=== PATIENT | female | born 1955 | race Caucasian/White ===

== ENCOUNTER 2024-10-04 23:32 | Inpatient (IN) | payer MEDICAID, SELFPAY ==
--- OUTSIDE RECORDS SUMMARY | 2024-08-23 04:40 | XMS_ITS ---
Author Organization [facility] Address [address] [place] [address] Care Team Providers Care Group Teacher Name Role Phone Verónica Crews Primary Care Provider [phone] REASON FOR VISIT 3 month F/U Social History Sex Assigned At : Social History Observation Description Sex Assigned At Female Encounters Encounter Location Date Provider Diagnosis [facility] [address] [place] [address] 08/23/2024 Verónica Crews Plan Of Treatment Next Appt Details Provider Name:Verónica Crews, 12/09/2024 08:20:00 AM, [address] [place], [address], Progress Notes * Americo EVANSaDOB: (69 yo F)Acc No.[id number]:08/23/2024 Progress Notes Patient: Etelvina Sahu Appointment Provider: MANUEL Shaikh :1955 A ge:68 Y S ex:Female Date:08/23/2024 Address:[address] [id number] Subjective: * Chief Complaints: * 3 month F/U Care Plan Details* * Electronic signature of MANUEL Bustos i on 10/04/2024 at 11:50 PM CDT Sign off status: Pending * Appointment Provider: MANUEL Shaikh Date: 0 08/23/2024 Generated for Elin villa/Sarah/Licoitting on: 0 10/04/2024 11:50 PM CDT
--- OUTSIDE RECORDS SUMMARY | 2024-09-05 03:40 | XMS_ITS ---
Author Organization [facility] Address [address] [facility] [id number] Care Team Providers Care Field Advisor Name Role Phone Verónica Crews Primary Care Provider [phone] Allergies Allergen (clinical drug ingredient) Drug/Non Drug Allergy documented on EMR Reaction Allergy Type Onset Date Status codeine Codeine Unknown Drug Allergy Active morphine Morphine Unknown Drug Allergy Active Substance with sulfonamide structure and antibacterial mechanism of action (substance) Sulfa Antibiotics Unknown Drug Allergy Active Results Component Value Reference Range Notes Hemoglobin A1C Reviewed date:09/05/2024 09:00:25 AM Interpretation:5.5 Performing Lab: Notes/Report: 5.5 A1c (Hemoglobin) 5.5 Drug Screen, 13 Panel Reviewed date:09/05/2024 12:49:12 PM Interpretation: Performing Lab: Notes/Report: THC pos TITI neg MOP neg AMP neg MET neg BAR neg BZO pos MDMA neg MTD neg OXY neg PCP neg BUP neg Fen neg REASON FOR VISIT 3 month F/U Medications Medication SIG (Take, Route, Frequency, Duration) Notes Start Date End Date Status ALPRAZolam 1 MG Tablet TAKE 1 TABLET BY MOUTH TWICE A DAY 30 DAYS; Duration: 30 days PDMP reviewed, ok to fill 09/15/2024 09/05/2024 Active Eliquis 5 MG Tablet 1 tablet Orally twice a day Active Furosemide 40 MG Tablet 1 tablet Orally Once a day Active Aspirin 81 MG Tablet Delayed Release 1 tablet Orally Once a day Not-Taking/ PRN Amiodarone HCl 200 MG Tablet 1 tablet Orally twice daily Not-Taking/ PRN Zinc Acetate 25 MG Capsule 1 capsule Orally once daily Not-Taking/ PRN Vitamin D3 125 MCG (5000 UT) Tablet TAKE 1 CAPSULE (5,000 UNITS TOTAL) BY MOUTH 1 (ONE) TIME EACH DAY.; Duration: 30 Not-Taking/ PRN Vitamin C 500 MG Tablet TAKE 1 TABLET (500 MG TOTAL) BY MOUTH 1 (ONE) TIME EACH DAY.; Duration: 30 Not-Taking/ PRN Trelegy Ellipta 100-62.5-25 MCG/ACT Aerosol Powder Breath Activated 1 puff Inhalation Once a day; Duration: 30 days rinse mouth out well after each use 05/12/2022 Not-Taking/ PRN Atorvastatin Calcium 40 MG Tablet 1 tablet Orally Once a day; Duration: 90 days Active ProAir HFA 108 (90 Base) MCG/ACT Aerosol Solution 1-2 puffs Inhalation every 4-6 hrs as needed; Duration: 90 days Not-Taking/ PRN predniSONE 20 MG Tablet 1 tablet Orally twice daily Not-Taking/ PRN methylPREDNISolone 4 MG Tablet Therapy Pack as directed Orally Not-Taking/ PRN Lisinopril 20 MG Tablet 1 tablet Orally Once a day; Duration: 90 days Not-Taking/ PRN traMADol HCl 50 MG Tablet 1 tablet as needed Orally every 6 hours Not-Taking/ PRN HYDROcodone-Acetaminophe n 5-325 MG Tablet 1 tablet as needed Orally every 8 hrs as needed for pain; Duration: 2 days PDMP reviewed, ok to fill 12/12/22 12/12/2022 Not-Taking/ PRN Famotidine 20 MG Tablet 1 tab Orally twice a day as needed; Duration: 30 days Not-Taking/ PRN Diflucan 150 MG Tablet 1 tablet Orally; Duration: 1 days 03/29/2024 Not-Taking/ PRN busPIRone HCl 15 MG Tablet 1 tablet Orally every 8 hours as needed for anxiety; Duration: 90 days Not-Taking/ PRN Breztri Aerosphere 160-9-4.8 MCG/ACT Aerosol 2 puffs Inhalation Twice a day; Duration: 30 days DC Symbicort 05/11/2022 Not-Taking/ PRN Ascorbic Acid 500 MG Tablet 1 tablet Orally Once a day Not-Taking/ PRN Amoxicillin-Pot Clavulanate 875-125 MG Tablet 1 tablet Orally every 12 hrs Not-Taking/ PRN Ventolin HFA 108 (90 Base) MCG/ACT Aerosol Solution TAKE 2 PUFFS INHALATION EVERY 4-6 HRS NEEDED; Duration: 30 Active Azithromycin 250 MG Tablet 2 tablets on the first day, then 1 tablet Orally once daily for 4 more days. Not-Taking/ PRN Bisacodyl 5 MG Tablet Delayed Release 1 tablet as needed Orally Once a day Not-Taking/ PRN Symbicort 160-4.5 MCG/ACT Aerosol USE 2 PUFFS INHALATION TWICE A DAY (FOR COPD); Duration: 90 Active Pantoprazole Sodium 40 MG Tablet Delayed Release TAKE 1 TABLET BY MOUTH DAILY (HEARTBURN); Duration: 90 Active Oxygen 2 Liter 2 Liter Nasal Constant 06/12/2023 Active Ondansetron [address] 1 TABLET ON THE TONGUE AND ALLOW TO DISSOLVE ORALLY EVERY 8 HOURS NEEDED; Duration: 5 Not-Taking/ PRN tiZANidine HCl 4 MG Tablet TAKE 1 TABLET(S) BY MOUTH EVERY 8 HOURS NEEDED FOR MUSCLE RELAXER; Duration: 30 days Active Isosorbide Mononitrate ER 30 MG Tablet Extended Release 24 Hour 1 tablet in the morning Orally Once a day Not-Taking/ PRN Ipratropium-Albuterol 0.5-2.5 (3) MG/3ML Solution USE 1 VIAL VIA NEBULIZER FOUR TIMES DAILY TAKE FOR WHEEZING 30; Duration: 30 Active Mupirocin Calcium 2 % Cream APPLY TO AFFECTED AREA(S) THREE TIMES DAILY; Duration: 10 Active Metoprolol Succinate ER 25 MG Tablet Extended Release 24 Hour 1/2 tablet Orally Once a day Not-Taking/ PRN Nitroglycerin 0.4 MG Tablet Sublingual DISSOLVE 1 TABLET UNDER THE TONGUE EVERY 5 MINUTES UP TO 3 TIMES NEEDED FOR CHEST PAIN- IF NO RELIEF GO TO ER SUBLINGUAL DIRECTED Sublingual as needed; Duration: 30 days Active Clopidogrel Bisulfate 75 MG Tablet TAKE 1 TABLET BY MOUTH DAILY (BLOOD THINNER); Duration: 90 Active Celecoxib 200 MG Capsule TAKE ONE CAPSUL E BY MOUTH DAILY WITH FOOD (PAIN & INFLAMMATION); Duration: 90 Active Carvedilol 3.125 MG Tablet 1 tablet with food Orally Twice a day Active Fluticasone Propionate 50 MCG/ACT Suspension INSTILL 1 SPRAY IN EACH NOSTRIL NASALLY TWICE A DAY 90 DAYS; Duration: 90 Active DULoxetine HCl 60 MG Capsule Delayed Release Particles TAKE ONE CAPSULE BY MOUTH TWICE DAILY (MOOD/ANXIETY); Duration: 90 Active Social History Tobacco Use: Social History Observation Description Date Details (start date - stop date) Current Smoker NA - NA Sex Assigned At : Social History Observation Description Sex Assigned At Female Social History Social Determinants Social Info Question Answer Notes PRAPARE Date Completed/Updated: 02/07/2024 What is your current housing situation? I have h ousing Are you worried about losing your housing? No What is the highest level of school that you have finished? Less than a high school degree What is your current work situation? Oth erwise unemployed but not seeking work (ex. 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 Check all that apply I choose not to answer this question Has lack of transportation k ept you from medical appointments, meetings, work or from getting things needed for daily living? No How often do you see or talk to people that you care about and feel close to? (For example: talking to friends on the phone, visiting friends or family, going to orthodox or club meetings) More than 5 times a week How stressed are you? Stress is when someone feels tense, nervous, anxious, or cant sleep at night because their mind is troubled Very much In the past year have you sp ent more than 2 nights in a row in a fdc, nursing home, mcfp center, or juvenile correctional facility? No Are you a refugee? No What country are you from? [place] Do you feel physically and e motionally safe where you currently live? Yes In the past year, have you b een afraid of your partner or ex-partner? No PRAPARE Score: 6 Drugs/Alcohol: Social Info Question Answer Notes Drugs Have you used drugs other than those for medical reasons in the past 12 months? Yes Marijuana? Yes Comprehensive Health Assessm ent Social Info Question Answer Notes Comprehensive Health Assessment Assistance with drug c ost? No Assistance with food cost? No Any communication needs? No Any High risk behaviors ? No Any Mental health issues? No Any substance abuse ? No Problems understanding meds or dx ? No Has been referred for Comp. Care Plan? No Drug/Alcohol: Social Info Question Answer Notes SBIRT (2018 Edition) Patient refused/dec lined SBIRT screening at this time? No 1. How often do you have a drink containing alcohol? Never SCORE 0 Interpretation Negative How many times in the past year have you used an illegal drug or used a prescription medication for non-medical reasons? 0 Total Count 0 Interpretation Negative Tobacco Use: Social Info Question Answer Notes Tobacco Control (Standard) Tobacco use: Current smoker How often do you smoke cigarettes? Every day How many cigarettes a day do you smoke? 5 or less How soon after you wake up do you smoke your first cigarette? After 60 minutes Are you interested in quitting? Thinking about quitting Are you an ENDS user: Are you an other tobacco user? N o Vital Signs Temperature 97.8 degrees Fahrenheit 09/06/19 25 Blood pressure systolic 138 mm Hg 09/06/19 25 Blood pressure diastolic 79 mm Hg 025 Heart Rate 71 /min 09/05/2024 Respiratory Rate 16 /min 09/05/2024 Height 61 in 09/05/2024 Weight 96.4 lbs 09/05/2024 BMI 18.21 kg/m2 09/05/2024 Oximetry 93 % 09/05/2024 Height-cm 154.94 cm 09/05/2024 Weight-kg 43.73 kg 09/05/2024 Encounters Encounter Location Date Provider Diagnosis [facility] [id number] [place] [address] 09/05/2024 Verónica Crews Nutritional counseli ng Z71.3 ; Smoking F17.200 ; Lung nodule seen on imaging study R91.1 ; Mixed hyperlipidemia E78.2 ; Prediabetes R73.09 ; Blood glucose elevated R73.9 ; Anxiety with depression F41.8 ; Screening mammogram, encounter for Z12.31 and 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 Assessments Encounter Date Diagnosis (ICD Code) Assessment Notes Treatment Notes Treatment Clinical Notes Section Notes 09/05/2024 Nutritional counseling (ICD-10 - Z71.3) Eating Healthy Foods: Care Instructions material was printed 09/05/2024 Smoking (ICD-10 - F17.200) Smoking cessation drugs: nicotine replacement products material was printed, Smoking cessation drugs: nicotine replacement products material was printed 09/05/2024 Lung nodule seen on imaging study (ICD-10 - R91.1) 09/05/2024 Mixed hyperlipidemia (ICD-10 - E78.2) 09/05/2024 Prediabetes (ICD-10 - R73.09) 09/05/2024 Blood glucose elevated (ICD-10 - R73.9) 09/05/2024 Anxiety with depression (ICD-10 - F41.8) 09/05/2024 Screening mammogram, encounter for (ICD-10 - Z12.31) 09/05/2024 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 use 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 (ICD-10 - Z79.899) 09/05/2024 Other Smoking cessation drugs: nicotine replacement products (sp) material was printed Plan Of Treatment Medication Medication Name Sig Start Date Stop Date Notes ALPRAZolam 1 MG Tablet TAKE 1 TABLET BY MOUTH TWICE A DAY 30 DAYS; Duration: 30 days 09/05/2024 PDMP reviewed, ok to fill 09/15/2024 Atorvastatin Calcium 40 MG Tablet 1 tablet Orally Once a day; Duration: 90 days Treatment Notes Assessment Notes Nutritional counseling Eating Healthy Fo ods: Care Instructions material was printed Smoking Smoking cessation dr parr: nicotine replacement products material was printed, Smoking cessation drugs: nicotine replacement products material was printed Other Smoking cessation dr parr: nicotine replacement products (sp) material was printed Pending Test Test Name Order Date MAMMOGRAM, SCREENING 09/05/[address] Low Dose without Contrast 15169 09/05/2024 Next Appt Details Provider Name:Verónica Crews, 12/09/2024 08:20:00 AM, [address] [place], [address], History and Physical Notes * HPI (History of Present Illness) Category Sub-Category Detail Notes Category Not es New/Follow-up Patient Consult 69 year old female presents to clinic for 3 month F/U. Pt. states she would like to discuss her Xanax and it is maybe causing memory loss. Pt. states she feels like her memory is getting worse and wonders if the Xanax is causing it. Pt. states her mother takes Valium, and it is not supposed to cause memory loss. Pt. states she thinks she was supposed to have more blood work done as well. Pt. 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 KEITH Cano Depression Screening PHQ-9 Little interest or pleasure in doing things: Several days Feeling down, depressed, or hopeless: Ne olivia every day Trouble falling or staying a sleep, or sleeping too much: More than half the days Feeling tired or having little energy: N early every day Poor appetite or overeating: Several day s Feeling bad about yourself o r that you are a failure, or have let yourself or your family down: Not at all Trouble concentrating on thi ngs, such as reading the newspaper or watching television: More than half the days Moving or speaking so slowly that other people could have noticed; or the opposite, being so fidgety or restless that you have been moving around a lot more than usual: Not at all Thoughts that you would be b isak off or of hurting yourself in some way: Not at all Total Score: 12 Interpretation: Moderate Depression COVID Testing/Immunization Immunization Received COVID Vac cine: No Progress Notes * Sindy AGUIRREAnaB: 7 (69 yo F)Acc No.[id number]:09/05/2024 Progress Notes Patient: Etelvina Sahu Appointment Provider: MANUEL Shaikh :1955 A ge:69 Y S ex:Female Date:09/05/2024 Address:[address] [place] [address] ELOY LYNN, [id number] 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 Subjective: * Chief Complaints: * 3 month F/U * HPI: C OVID Testing/Immunization: Immunization R eceived COVID Vaccine N o D epression Screening: PHQ-9 L ittle interest or pleasure in doing things?Several days F eeling down, depressed, or hopeless N early every day T rouble falling or staying asleep, or sleeping too much M ore than half the days F eeling tired or having little energy N early every day P oor appetite or overeating S everal days F eeling bad about yourself or that you are a failure, or have let yourself or your family down N ot at all T rouble concentrating on things, such as reading the newspaper or watching television M ore than half the days M oving or speaking so slowly that other people could have noticed; or the opposite, being so fidgety or restless that you have been moving around a lot more than usual N ot at all T houghts that you would be better off or of hurting yourself in some way N ot at all T otal Score 1 2 I nterpretation M oderate Depression N ew/Follow-up Patient Consult: 69 year old female presents to clinic for 3 month F/U. Pt. states she would like to discuss her Xanax and it is maybe causing memory loss. Pt. states she feels like her memory is getting worse and wonders if the Xanax is causing it. Pt. states her mother takes Valium, and it is not supposed to cause memory loss. Pt. states she thinks she was supposed to have more blood work done as well. Pt. 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 KEITH Cano. * ROS: G eneral/Constitutional: Denies C hills. D enies F atigue. D enies F ever. D enies H eadache. R espiratory: Denies C ough. D enies S hortness of breath. ? C ardiovascular: Denies C hest pain. D enies P alpitations. ? G astrointestinal: Denies A bdominal pain. D enies N ausea. D enies V omiting. * Medical History: Depression Anxiety PTSD (post-traumatic stress disorder) Major depressive disorder Pain in left hip CVA (cerebral vascular accident) COPD (chronic obstructive pulmonary disease) Glaucoma Fibromyalgia PVD (peripheral vascular disease) GERD (gastroesophageal reflux disease) OCD (obsessive compulsive disorder) Panic attack Medical History Verified * Surgical History: arm surgery, left gortex aorta surgery x3 head trauma stents, x3 01/2024 bowel surgery 01/2024 Surgical History verified. * Hospitalization/Major Diagno stic Procedure: surgeries COPD, [facility] 06/2023 [facility], x2 01/2024 [facility], x2 acute resp. failure, [facility] 03/2024 Hospitalization Verified. * Family History: F ather: alive. M other: alive. 1 brother(s) , 1 sister(s) - healthy. 3 daughter(s) - healthy. . F amily History Verified.. * Social History: C omprehensive Health Assessment: C omprehensive Health Assessment A ssistance with drug cost? N o A ssistance with food cost? N o A ny communication needs? N o A ny High risk behaviors ? N o A ny Mental health issues? N o A ny substance abuse ? N o P roblems understanding meds or dx ? N o H as been referred for Comp. Care Plan? N o S ocial Determinants: Silvio Li ate Completed/Updated: 04/09/2023 W hat is your current housing situation? I have housing A re you worried about losing your housing??No W hat is the highest level of school that you have finished? L ess than a high school degree W hat is your current work situation? O therwise unemployed but not seeking work (ex. 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 Check all that apply I choose not to answer this question H as lack of transportation kept you from medical appointments, meetings, work or from getting things needed for daily living? N o H ow often do you see or talk to people that you care about and feel close to? (For example: talking to friends on the phone, visiting friends or family, going to orthodox or club meetings) M ore than 5 times a week H ow stressed are you? Stress is when someone feels tense, nervous, anxious, or cant sleep at night because their mind is troubled V aleena much I n the past year have you spent more than 2 nights in a row in a fdc, nursing home, mcfp center, or juvenile correctional facility? N o A re you a refugee? N o W hat [place] are you from[place] D o you feel physically and emotionally safe where you currently live? Y es I n the past year, have you been afraid of your partner or ex-partner? N o P ART Score: 6 D rug/Alcohol: S GONZALES (2018 Edition) P atient refused/declined SBIRT screening at this time? N o 1 . How often do you have a drink containing alcohol? N ever S CORE 0 I nterpretation N egative H ow many times in the past year have you used an illegal drug or used a prescription medication for non-medical reasons? 0 T otal Count 0 I nterpretation N egative T obacco Use: A re you an ENDS user A re you an other tobacco user? N o Tobacco Control (Standard) T obacco use: C urrent smoker H ow often do you smoke cigarettes? E very day H ow many cigarettes a day do you smoke? 5 or less H ow soon after you wake up do you smoke your first cigarette? A fter 60 minutes A re you interested in quitting? T hinking about quitting D rugs/Alcohol: D rugs H ave you used drugs other than those for medical reasons in the past 12 months? Y es M arijuana? Y es S ocial History Verified. * Medications: T akingALPRAZolam 1 MG Tablet TAKE 1 TABLET BY MOUTH TWICE A DAY 30 DAYS Atorvastatin Calcium 40 MG Tablet 1 tablet Orally Once a day Carvedilol 3.125 MG Tablet 1 tablet with food Orally Twice a day Celecoxib 200 MG Capsule TAKE ONE CAPSULE BY MOUTH DAILY WITH FOOD (PAIN & INFLAMMATION) Clopidogrel Bisulfate 75 MG Tablet TAKE 1 TABLET BY MOUTH DAILY (BLOOD THINNER) DULoxetine HCl 60 MG Capsule Delayed Release Particles TAKE ONE CAPSULE BY MOUTH TWICE DAILY (MOOD/ANXIETY) Eliquis(Apixaban) 5 MG Tablet 1 tablet Orally twice a day Fluticasone Propionate 50 MCG/ACT Suspension INSTILL 1 SPRAY IN EACH NOSTRIL NASALLY TWICE A DAY 90 DAYS Furosemide 40 MG Tablet 1 tablet Orally Once a day Ipratropium-Albuterol 0.5-2.5 (3) MG/3ML Solution USE 1 VIAL VIA NEBULIZER FOUR TIMES DAILY TAKE FOR WHEEZING 30 Mupirocin Calcium 2 % Cream APPLY TO AFFECTED AREA(S) THREE TIMES DAILY Nitroglycerin 0.4 MG Tablet Sublingual DISSOLVE 1 TABLET UNDER THE TONGUE EVERY 5 MINUTES UP TO 3 TIMES NEEDED FOR CHEST PAIN- IF NO RELIEF GO TO ER SUBLINGUAL DIRECTED Sublingual as needed Oxygen 2 Liter 2 Liter Nasal Constant Pantoprazole Sodium 40 MG Tablet Delayed Release TAKE 1 TABLET BY MOUTH DAILY (HEARTBURN) Symbicort(Budesonide-Formoterol Fumarate) 160-4.5 MCG/ACT Aerosol USE 2 PUFFS INHALATION TWICE A DAY (FOR COPD) tiZANidine HCl 4 MG Tablet TAKE 1 TABLET(S) BY MOUTH EVERY 8 HOURS NEEDED FOR MUSCLE RELAXER Ventolin HFA(Albuterol Sulfate HFA) 108 (90 Base) MCG/ACT Aerosol Solution TAKE 2 PUFFS INHALATION EVERY 4-6 HRS NEEDED Taking ALPRAZolam 1 MG Tablet TAKE 1 TABLET BY MOUTH TWICE A DAY 30 DAYS Taking Atorvastatin Calcium 40 MG Tablet 1 tablet Orally Once a day Taking Carvedilol 3.125 MG Tablet 1 tablet with food Orally Twice a day Taking Celecoxib 200 MG Capsule TAKE ONE CAPSULE BY MOUTH DAILY WITH FOOD (PAIN & INFLAMMATION) Taking Clopidogrel Bisulfate 75 MG Tablet TAKE 1 TABLET BY MOUTH DAILY (BLOOD THINNER) Taking DULoxetine HCl 60 MG Capsule Delayed Release Particles TAKE ONE CAPSULE BY MOUTH TWICE DAILY (MOOD/ANXIETY) Taking Eliquis(Apixaban) 5 MG Tablet 1 tablet Orally twice a day Taking Fluticasone Propionate 50 MCG/ACT Suspension INSTILL 1 SPRAY IN EACH NOSTRIL NASALLY TWICE A DAY 90 DAYS Taking Furosemide 40 MG Tablet 1 tablet Orally Once a day Taking Ipratropium-Albuterol 0.5-2.5 (3) MG/3ML Solution USE 1 VIAL VIA NEBULIZER FOUR TIMES DAILY TAKE FOR WHEEZING 30 Taking Mupirocin Calcium 2 % Cream APPLY TO AFFECTED AREA(S) THREE TIMES DAILY Taking Nitroglycerin 0.4 MG Tablet Sublingual DISSOLVE 1 TABLET UNDER THE TONGUE EVERY 5 MINUTES UP TO 3 TIMES NEEDED FOR CHEST PAIN- IF NO RELIEF GO TO ER SUBLINGUAL DIRECTED Sublingual as needed Taking Oxygen 2 Liter 2 Liter Nasal Constant Taking Pantoprazole Sodium 40 MG Tablet Delayed Release TAKE 1 TABLET BY MOUTH DAILY (HEARTBURN) Taking Symbicort(Budesonide-Formoterol Fumarate) 160-4.5 MCG/ACT Aerosol USE 2 PUFFS INHALATION TWICE A DAY (FOR COPD) Taking tiZANidine HCl 4 MG Tablet TAKE 1 TABLET(S) BY MOUTH EVERY 8 HOURS NEEDED FOR MUSCLE RELAXER Taking Ventolin HFA(Albuterol Sulfate HFA) 108 (90 Base) MCG/ACT Aerosol Solution TAKE 2 PUFFS INHALATION EVERY 4-6 HRS NEEDED Not-Taking/PRNAmiodarone HCl 200 MG Tablet 1 tablet Orally twice daily Amoxicillin-Pot Clavulanate 875-125 MG Tablet 1 tablet Orally every 12 hrs Ascorbic Acid 500 MG Tablet 1 tablet Orally Once a day Aspirin 81 MG Tablet Delayed Release 1 tablet Orally Once a day Azithromycin 250 MG Tablet 2 tablets on the first day, then 1 tablet Orally once daily for 4 more days. Bisacodyl 5 MG Tablet Delayed Release 1 tablet as needed Orally Once a day Breztri Aerosphere(Bmhiaxg-Zqyqrpbgoaj-Rkssvumvtb) 160-9-4.8 MCG/ACT Aerosol 2 puffs Inhalation Twice a day , Notes to Pharmacist: ELISABETH SymbicortbusPIRone HCl 15 MG Tablet 1 tablet Orally every 8 hours as needed for anxiety Diflucan 150 MG Tablet 1 tablet Orally Famotidine 20 MG Tablet 1 tab Orally twice a day as needed HYDROcodone-Acetaminophen 5-325 MG Tablet 1 tablet as needed Orally every 8 hrs as needed for pain , Notes to Pharmacist: PDMP reviewed, ok to fill 12/12/22Isosorbide Mononitrate ER 30 MG Tablet Extended Release 24 Hour 1 tablet in the morning Orally Once a day Lisinopril 20 MG Tablet 1 tablet Orally Once a day methylPREDNISolone 4 MG Tablet Therapy Pack as directed Orally Metoprolol Succinate ER 25 MG Tablet Extended Release 24 Hour 1/2 tablet Orally Once a day Ondansetron [address] 1 TABLET ON THE TONGUE AND ALLOW TO DISSOLVE ORALLY EVERY 8 HOURS NEEDED predniSONE 20 MG Tablet 1 tablet Orally twice daily ProAir HFA 108 (90 Base) MCG/ACT Aerosol Solution 1-2 puffs Inhalation every 4-6 hrs as needed traMADol HCl 50 MG Tablet 1 tablet as needed Orally every 6 hours Trelegy Ellipta(Quhayopwcsr-Eqhtjrtwz-Seddau) 100-62.5-25 MCG/ACT Aerosol Powder Breath Activated 1 puff Inhalation Once a day , Notes to Pharmacist: rinse mouth out well after each useVitamin C 500 MG Tablet TAKE 1 TABLET (500 MG TOTAL) BY MOUTH 1 (ONE) TIME EACH DAY. Vitamin D3 125 MCG (5000 UT) Tablet TAKE 1 CAPSULE (5,000 UNITS TOTAL) BY MOUTH 1 (ONE) TIME EACH DAY. Zinc Acetate 25 MG Capsule 1 capsule Orally once daily Medication List reviewed and reconciled with the patientNot-Taking/PRN Amiodarone HCl 200 MG Tablet 1 tablet Orally twice daily Not-Taking/PRN Amoxicillin-Pot Clavulanate 875-125 MG Tablet 1 tablet Orally every 12 hrs Not-Taking/PRN Ascorbic Acid 500 MG Tablet 1 tablet Orally Once a day Not- Taking/PRN Aspirin 81 MG Tablet Delayed Release 1 tablet Orally Once a day Not-Taking/PRN Azithromycin 250 MG Tablet 2 tablets on the first day, then 1 tablet Orally once daily for 4 more days. Not-Taking/PRN Bisacodyl 5 MG Tablet Delayed Release 1 tablet as needed Orally Once a day Not-Taking/PRN [employer](Eyuuecy-Aocscuspekq-Nfbskazbjb) 160-9-4.8 MCG/ACT Aerosol 2 puffs Inhalation Twice a day , Notes to Pharmacist: DC SymbicortNot-Taking/PRN busPIRone HCl 15 MG Tablet 1 tablet Orally every 8 hours as needed for anxiety Not- Taking/PRN Diflucan 150 MG Tablet 1 tablet Orally Not-Taking/PRN Famotidine 20 MG Tablet 1 tab Orally twice a day as needed Not-Taking/PRN HYDROcodone-Acetaminophen 5-325 MG Tablet 1 tablet as needed Orally every 8 hrs as needed for pain , Notes to Pharmacist: PDMP reviewed, ok to fill 12/12/22Not-Taking/PRN Isosorbide Mononitrate ER 30 MG Tablet Extended Release 24 Hour 1 tablet in the morning Orally Once a day Not- Taking/PRN Lisinopril 20 MG Tablet 1 tablet Orally Once a day Not-Taking/PRN methylPREDNISolone 4 MG Tablet Therapy Pack as directed Orally Not-Taking/PRN Metoprolol Succinate ER 25 MG Tablet Extended Release 24 Hour 1/2 tablet Orally Once a day Not-Taking/PRN Ondansetron [address] 1 TABLET ON THE TONGUE AND ALLOW TO DISSOLVE ORALLY EVERY 8 HOURS NEEDED Not-Taking/PRN predniSONE 20 MG Tablet 1 tablet Orally twice daily Not-Taking/PRN ProAir HFA 108 (90 Base) MCG/ACT Aerosol Solution 1-2 puffs Inhalation every 4-6 hrs as needed Not-Taking/PRN traMADol HCl 50 MG Tablet 1 tablet as needed Orally every 6 hours Not-Taking/PRN Trelegy Ellipta(Zfwgayfknuf-Junsqgdrp-Dtuyjw) 100-62.5-25 MCG/ACT Aerosol Powder Breath Activated 1 puff Inhalation Once a day , Notes to Pharmacist: rinse mouth out well after each useNot-Taking/PRN Vitamin C 500 MG Tablet TAKE 1 TABLET (500 MG TOTAL) BY MOUTH 1 (ONE) TIME EACH DAY. Not-Taking/PRN Vitamin D3 125 MCG (5000 UT) Tablet TAKE 1 CAPSULE (5,000 UNITS TOTAL) BY MOUTH 1 (ONE) TIME EACH DAY. Not-Taking/PRN Zinc Acetate 25 MG Capsule 1 capsule Orally once daily Medication List reviewed and reconciled with the patient * Allergies: S ulfa AntibioticsCodeineMorphineyesAllergies Verified. Objective: * Vitals: H t: 61 in, Wt:96.4lbs, BP: 142/86 mm Hg,138/79mm Hg, HR:71/min, Oxygen sat %:93%, RR:16/min, Temp:97.8F, Ht-cm: 154.94 cm, BMI:18.21Index, Wt-k.73 kg. Assessment: * Assessment: 1. N utritional counseling - Z71.3 (Primary) 2 . S moking - F17.200 ? 3 . L josh nodule seen on imaging study - R91.1 4 . M ixed hyperlipidemia - E78.2 5 . P rediabetes - R73.09 6 . B lood glucose elevated - R73.9 7 . S creening mammogram, encounter for - Z12.31 ?8. A nxiety with depression - F41.8 9 . L dimitris term use of drug - Z79.899? Plan: * Treatment: 2. S moking Notes: Smoking cessation drugs: nicotine replacement products material was printed, Smoking cessation drugs: nicotine replacement products material was printed 3. L josh nodule seen on imaging study I maging: Chest CT Low Dose without Contrast 69502 4.?Mixed hyperlipidemia? Refill Atorvastatin Calcium Tablet, 40 MG, 1 tablet, Orally, Once a day, 90 days, 90, Refills 3. ?5.?Blood glucose elevated?LAB: Hemoglobin A1C (Collection Date & Time - 09/05/2024)?5.5* Value Reference Range A 1c (Hemoglobin) 5.5 * Della Phan 09/05/2024 09: 00:24 AM > provider aware 6.?Screening mammogram, encounter for?Imaging: MAMMOGRAM, SCREENING* Patricia Urias 09/05/2024 12 :48:44 PM > [facility] 12:49:15 PM > I overlooked the [place] note, faxed to [facility] instead. Needs Ambrosio Barahona 09/09/2024 11:07:34 AM > Patient sent message via [facility] with [facility] phone number to call and schedule appt. 7.?Anxiety with depression? Refill ALPRAZolam Tablet, 1 MG, TAKE 1 TABLET BY MOUTH TWICE A DAY 30 DAYS, 30 days, 60 Tablet, Refills 0, Notes to Pharmacist: PDMP reviewed, ok to fill 09/15/2024.??8.?detention use of drug?LAB: Drug Screen, 13 Panel (Collection Date & Time - 09/05/2024)* Value Reference Range T HC pos * C OC neg * M OP neg * A MP neg * M ET neg * B AR neg * B ZO pos * M DMA neg * M TD neg * O XY neg * P CP neg * B UP neg * F en neg * Rose Mary Martinez 09/05/2024 12:4 9:00 PM > provider aware 9.?Others? Notes: Smoking cessation drugs: nicotine replacement products (sp) material was printed?? * Procedure Codes: 9 8960 SELF-MGMT EDUC & TRAIN, 1 [id number] BEHAV CHNG SMOKING 3-10 [id number] GLYCOSYLATED HB, HOME DEVICE, Modifiers: QW 19624 DRUG TEST PRSMV DIR OPT OBS, Modifiers: QW * Preventive Medicine: Counseling: S MOKING: X , Patient counselled on the dangers of tobacco use and urged to quit. C ounselled, Reasons to Quit-CDC C are goal follow-up plan: BMI management provided Y es Exercise Counseling Provided- Y es Nutrition/Dietary Counseling provided?Yes YOUR PREVENTIVE WELLNESS PLAN (F): H IV Screening: Last Done: 0 08/22/2022 B MD, Height, and Weight: My BMI, height, and weight were taken:?09/05/2024 B lood Pressure: My blood pressure was last taken on:?09/05/2024 B reast Cancer Screening (Mammogram): My last mammogram was done on: had one about a year ago-normal C olorectal Cancer Screening: Screening for colorectal cancer was last done on: had one about 2 years ago-normal D epression Screening: Screening for depression was last done on: 0 09/05/2024 A lcohol Misuse Screening: Screening for alcohol misuse was last done on: 0 09/05/2024 I nfluenza (Flu) Vaccine: I was last vaccinated on: h ad at [facility], 01/2024 C ontrolled Agreement Controlled Agreement Needed: Y es Medication Category B enzodiazepine Date Agreement Signed 0 09/05/2024 Urine Drug Screen Completed On 09/05/2024 Billing Information: * Procedure Codes: 41230 SELF-MGMT EDUC & TRAIN, 1 [place]. [address] BEHAV CHNG SMOKING 3-10 MIN. 23445 GLYCOSYLATED HB, HOME DEVICE. Modifiers: QW 74951 DRUG TEST PRSMV DIR OPT OBS. Modifiers: QW Care Plan Details* * Electronic signature of MANUEL Bustos i on 10/04/2024 at 11:52 PM CDT Sign off status: Pending * Appointment Provider: MANUEL Shaikh Date: 09/05/2024 Generated for Elin villa/Sarah/Sebastian on: 10/04/2024 11:52 PM CDT
[2024-10-04 23:41] VITALS: BP 162/98; PULSE 80; RESP 24; TEMP 35.6; O2SAT 68; BMI 16.2
--- OUTSIDE RECORDS SUMMARY | 2024-10-04 23:48 | XMS_ITS | Encounter Summary ---
Author Organization [facility] Address [address] [address] Phone Care Team Providers Care Fleet Assistant Name Role Phone Verónica Crews Bandar JACKSON Primary Care Provider [phone] Encounter Details Date Type Department Care Team (Late st Contact Info) Description 02/27/2024 Home Health Resumpti on of Care Planning [facility] [address] [place], [place] [id number] Layla Desai RN [address] [id number] Social History Tobacco Use Types Packs/Day Years Used Date Smoking Tobacco: Every Day Cigarettes 0.5 52 Smokeless Tobacco: Never Comments:01/10/24-REPORTS IS CUTTING BACK Alcohol Use Standard Drinks/Week Comments Not Currently 0 (1 standard drink = 0.6 oz pur e alcohol) rarely OASIS D0700: Social Isolation Answer Da te Recorded Frequency of experiencing loneliness or isolatio n Never 02/27/2024 OASIS A1250: Transportation Answer Date Recorded Lack of Transportation (Medical) No 02/27/2024 Lack of Transportation (Non-Medical) No 02/27/2024 Patient Unable or Declines to Respond No 02/27/2024 OASIS B1300: Health Literacy Answer Joe e Recorded Frequency of needing help to read materials from doctor or pharmacy Sometimes 02/27/2024 AUDIT-C Answer Date Recorded Q1: How often do you have a drink containing alc ohol? Monthly or less 12/27/2023 Q2: How many drinks containi ng alcohol do you have on a typical day when you are drinking? 1 or 2 12/27/2023 Q3: How often do you have si x or more drinks on one occasion? Never 12/27/2023 PHQ-2 Answer Date Recorded Patient Health Questionnaire-2 Score 0 12/27/2023 [facility] - Mental Health Answer Date Recorde d Little interest or pleasure in doing things Not at all 12/27/2023 Feeling down, depressed, or hopeless Not at all 12/27/2023 Feeling of Stress Not on file 12/27/2023 Comments No Sex and Gender Information Value Date Recorded Sex Assigned at Not on file Legal Sex Female 11:11 AM CDT Gender Identity Not on file Sexual Orientation Not on file documented as of this encounter Plan of Treatment Not on file documented as of this encounter Visit Diagnoses Not on filedocumented in this encounter Care Teams Fleet Assistant Relationship Specialty Start Date End Date Verónica Crews FNP [facility] [address] [place] [address] PCP - General Family Medicine 05/08/23 documented as of this encounter
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
--- OUTSIDE RECORDS SUMMARY | 2024-10-04 23:48 | XMS_ITS | Encounter Summary ---
Author Organization [facility] Address [address] [address] Phone Care Team Providers Care Chimney Builder Name Role Phone Verónica Crews Bandar JACKSON Primary Care Provider [phone] Encounter Details Date Type Department Care Team (Late st Contact Info) Description 03/28/2024 Home Health Resumpti on of Care Planning [facility] [address] [place] [address] Layla Desai RN [address] [address] Social History Tobacco Use Types Packs/Day Years Used Date Smoking Tobacco: Every Day Cigarettes 0.5 52 Smokeless Tobacco: Never Comments:01/10/24-REPORTS IS CUTTING BACK Alcohol Use Standard Drinks/Week Comments Not Currently 0 (1 standard drink = 0.6 oz pur e alcohol) rarely OASIS D0700: Social Isolation Answer Da te Recorded Frequency of experiencing loneliness or isolatio n Never 03/29/2024 OASIS A1250: Transportation Answer Date Recorded Lack of Transportation (Medical) No 03/29/2024 Lack of Transportation (Non-Medical) No 03/29/2024 Patient Unable or Declines to Respond No 03/29/2024 OASIS B1300: Health Literacy Answer Joe e Recorded Frequency of needing help to read materials from doctor or pharmacy Sometimes 03/29/2024 AUDIT-C Answer Date Recorded Q1: How often [...] on filedocumented in this encounter Care Teams Chimney Builder Relationship Specialty Start Date End Date Verónica Crews FNP [facility] [address] [place] [address] PCP - General Family Medicine 05/08/23 documented as of this encounter
--- OUTSIDE RECORDS SUMMARY | 2024-10-04 23:48 | XMS_ITS | Patient Health Record ---
Author Organization [facility] Address [address] [facility] [place] [address] Care Team Providers Care Clinic Scheduler Name Role Phone Mars Verónica Primary Care Provider Allergies Allergen (clinical drug ingredient) Drug/Non Drug [...] neg PCP neg BUP neg Fen neg Reason For Referral Reason Cardiac rehab [place] Diagnosis 1 CHF (congestive hear t failure) (I50.9) Referral Organization [facility] Referring Provider First Name Verónica Referring Provider Last Name Mars Referring Provider Speciality Family Med icine Referred Organization [facility] Referred Address [address] [place] [id number], Referred Provider Specialty Cardiology General Notes Rose Mary Martinez 025 09:29:09 AM >referral faxed to [facility], fax# [phone], phone# [phone], Candice Tolbert 04/10/2024 07:35:58 AM >[facility] 04/30/2024 09:36:18 AM >Spoke to who states they do have the referral but pt has not been contacted yet to schedule. Message was sent to cardiology to schedule pt.David Emily 05/16/2024 09:34:29 AM >[facility] Cardiology, Chrissie Hernandez 06/03/2024 03:21:57 PM >[facility] Patient is already established with Dr. Roberts and needs to schedule a follow up appointment with him. Left message on voicemail in regards to this matter. . Referral was closed by PH. Chrissie Hernandez 06/03/2024 03:28:55 PM >Pt refused services Referral Priority Routine Medications Medication SIG (Take, Route, Frequency, Duration) Notes Start Date End Date Status Nitroglycerin 0.4 MG Tablet Sublingual DISSOLVE 1 TABLET UNDER THE TONGUE EVERY 5 MINUTES UP TO 3 TIMES NEEDED FOR CHEST PAIN- IF NO RELIEF HEAD TO ER; Duration: 7 Active Breztri Aerosphere 160-9-4.8 MCG/ACT Aerosol 2 puffs Inhalation Twice a day; Duration: 30 days DC Symbicort 05/11/2022 Not-Taking/ PRN Bisacodyl 5 MG Tablet Delayed Release 1 tablet as needed Orally Once a day Not-Taking/ PRN Clopidogrel Bisulfate 75 MG Tablet TAKE 1 TABLET BY MOUTH DAILY (BLOOD THINNER); Duration: 90 Active HYDROcodone-Acetaminophe n 5-325 MG Tablet 1 tablet as needed Orally every 8 hrs as needed for pain; Duration: 2 days PDMP reviewed, ok to fill 12/12/22 12/12/2022 Not-Taking/ PRN Famotidine 20 MG Tablet 1 tab Orally twice a day as needed; Duration: 30 days Not-Taking/ PRN Carvedilol 3.125 MG Tablet 1 tablet with food Orally Twice a day Active Diflucan 150 MG Tablet 1 tablet Orally; Duration: 1 days 03/29/2024 Not-Taking/ PRN busPIRone HCl 15 MG Tablet 1 tablet Orally every 8 hours as needed for anxiety; Duration: 90 days Not-Taking/ PRN Isosorbide Mononitrate ER 30 MG Tablet Extended Release 24 Hour 1 tablet in the morning Orally Once a day Not-Taking/ PRN ProAir HFA 108 (90 Base) MCG/ACT Aerosol Solution 1-2 puffs Inhalation every 4-6 hrs as needed; Duration: 90 days Not-Taking/ PRN Ipratropium-Albuterol 0.5-2.5 (3) MG/3ML Solution USE 1 VIAL VIA NEBULIZER FOUR TIMES DAILY TAKE FOR WHEEZING 30; Duration: 30 Active predniSONE 20 MG Tablet 1 tablet Orally twice daily Not-Taking/ PRN Fluticasone Propionate 50 MCG/ACT Suspension INSTILL 1 SPRAY IN EACH NOSTRIL NASALLY TWICE A DAY 90 DAYS; Duration: 90 Active methylPREDNISolone 4 MG Tablet Therapy Pack as directed Orally Not-Taking/ PRN Lisinopril 20 MG Tablet 1 tablet Orally Once a day; Duration: 90 days Not-Taking/ PRN Mupirocin Calcium 2 % Cream APPLY TO AFFECTED AREA(S) THREE TIMES DAILY; Duration: 10 Active Metoprolol Succinate ER 25 MG Tablet Extended Release 24 Hour 1/2 tablet Orally Once a day Not-Taking/ PRN DULoxetine HCl 60 MG Capsule Delayed Release Particles TAKE ONE CAPSULE BY MOUTH TWICE DAILY (MOOD/ANXIETY); Duration: 90 Active Vitamin C 500 MG Tablet TAKE 1 [...] Once a day; Duration: 90 days Active Celecoxib 200 MG Capsule TAKE ONE CAPSUL E BY MOUTH DAILY WITH FOOD (PAIN & INFLAMMATION); Duration: 90 Active traMADol HCl 50 MG Tablet 1 tablet as needed Orally every 6 hours Not-Taking/ PRN Symbicort 160-4.5 MCG/ACT Aerosol USE 2 PUFFS INHALATION TWICE A DAY (FOR COPD); Duration: 90 Active Pantoprazole Sodium 40 MG Tablet Delayed Release TAKE 1 TABLET BY MOUTH DAILY (HEARTBURN); Duration: 90 Active Oxygen 2 Liter 2 Liter Nasal Constant 06/12/2023 Active Zinc Acetate 25 MG Capsule 1 capsule Orally once daily Not-Taking/ PRN ALPRAZolam 1 MG Tablet TAKE 1 TABLET BY MOUTH TWICE A DAY 30 DAYS; Duration: 30 days PDMP reviewed, ok to fill 09/15/2024 09/05/2024 Active Ondansetron [address] 1 TABLET ON THE TONGUE AND ALLOW TO DISSOLVE ORALLY EVERY 8 HOURS NEEDED; Duration: 5 Not-Taking/ PRN Vitamin D3 125 MCG (5000 UT) Tablet TAKE 1 CAPSULE (5,000 UNITS TOTAL) BY MOUTH 1 (ONE) TIME EACH DAY.; Duration: 30 Not-Taking/ PRN Eliquis 5 MG Tablet 1 tablet Orally twice a day Active Ascorbic Acid 500 MG Tablet 1 tablet Orally Once a day Not-Taking/ PRN Furosemide 40 MG Tablet 1 tablet Orally Once a day Active Amoxicillin-Pot Clavulanate 875-125 MG Tablet 1 tablet Orally every 12 hrs Not-Taking/ PRN Ventolin HFA 108 (90 Base) MCG/ACT Aerosol Solution TAKE 2 PUFFS INHALATION EVERY 4-6 HRS NEEDED; Duration: 30 Active Aspirin 81 MG Tablet Delayed Release 1 tablet Orally Once a day Not-Taking/ PRN Amiodarone HCl 200 MG Tablet 1 tablet Orally twice daily Not-Taking/ PRN Azithromycin 250 MG Tablet 2 tablets on the first day, then 1 tablet Orally once daily for 4 more days. 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 Stress is when someone feels tense, nervous, anxious, or cant sleep at night because their mind is troubled Very much In the past year have you sp ent more than 2 nights in a row in a intermediate, long term, long term center, or juvenile correctional facility? No Are [...] you an other tobacco user? N o Problems Problem Type SNOMED Code ICD Code Onset Dates Problem Status W/U Status Risk Notes Problem Gastroesophageal reflux disease (051353875) GERD (gastroesophageal reflux disease) (K21.9) Active confirmed Problem Anxiety (20010826) Anxiety (F41.1) Active confi rmed Problem Fibromyalgia (183301722) Fibromyalgia (M79.7) Active confirmed Problem COPD - Chronic obstructive pulmonary disease (45252630) COPD (chronic obstructive pulmonary disease) (J44.9) Active confirmed Problem CVA - Cerebrovascular accident (201641595) CVA (cerebral vascular accident) (I63.9) Active confirmed Problem Congestive heart failure (18365306) CHF (congestive heart failure) (I50.9) Active confirmed Problem Osteoporosis (14717137) Osteoporosis (M81.0) Active confirmed Problem Coronary artery disease (89479269) CAD (coronary artery disease) (I25.10) Active confirmed Problem Angina pectoris (853359639) Angina pectoris (I20.9) Active confirmed Problem Peripheral vascular disease (147670994) PVD (peripheral vascular disease) (I73.9) Active confirmed Problem Smoking (31142121) Smoking (F17.200) Active con firmed Problem Panlobular emphysema (6558021) Panlobular emphysema (J43.1) Active confirmed Problem Glaucoma (64933832) Glaucoma (H40.9) Active con firmed Problem Seasonal allergy (827984348) Seasonal allergies (J30.2) Active confirmed Problem Mixed hyperlipidemia (605624307) Mixed hyperlipidemia (E78.2) Active confirmed Problem COPD - Chronic obstructive pulmonary disease (31780906) Chronic obstructive pulmonary disease, unspecified COPD type (J44.9) Active confirmed Problem Primary hypertension (95846339) Primary hypertension (I10) Active confirmed Problem Panic attack (243211362) Panic attack (F41.0) Active confirmed Problem Chronic bronchitis (01406593) Chronic bronchitis, unspecified chronic bronchitis type (J42) Active confirmed Problem Gastroesophageal reflux disease (disorder) (637191047) Chronic GERD (K21.9) Active confirmed Problem Obsessive-compulsiv e disorder (696040690) OCD (obsessive compulsive disorder) (F42.9) Active confirmed Problem Anxiety depression (180558468) Anxiety with depression (F41.8) Active confirmed Problem Solitary nodule of lung (619030162) Lung nodule seen on imaging study (R91.1) Active confirmed Problem 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) Active confirmed Vital Signs Heart Rate 71 /min 09/05/2024 Temperature 97.8 degrees Fahrenheit 09/05/2024 Respiratory Rate 16 /min 09/05/2024 Height-cm 154.94 cm 09/05/2024 Oximetry 93 % 09/05/2024 Blood pressure diastolic 79 mm Hg 09/05/2024 Weight-kg 43.73 kg 09/05/2024 Height 61 in 09/05/2024 Blood pressure systolic 138 mm Hg 09/05/2024 Weight 96.4 lbs 09/05/2024 BMI 18.21 kg/m2 09/05/2024 Encounters Encounter Location Date Provider Diagnosis [facility] [address] [place] [address] 09/05/2024 [facility] Nutritional counseli ng Z71.3 ; Smoking F17.200 ; Lung nodule seen on imaging study R91.1 ; Mixed hyperlipidemia E78.2 ; Prediabetes R73.09 ; Blood glucose elevated R73.9 ; Anxiety with depression F41.8 ; Screening mammogram, encounter for Z12.31 and intermediate use of drug Z79.[address] [place] [address] [address] [place] [address] 02/05/[address] [address] 02/07/2024 [facility] Nutritional counseli ng Z71.3 ; Hospital discharge follow-up Z09 ; Anxiety with depression F41.8 ; Chronic bronchitis, unspecified chronic bronchitis type J42 ; CAD (coronary artery disease) I25.10 ; Mixed hyperlipidemia E78.2 ; Seasonal allergies J30.2 ; Angina pectoris I20.9 and Chronic GERD K21.9 [facility] [address] [place] [address] 02/07/[address] [address] 03/22/2024 [facility] Nutritional counseli ng Z71.3 and Suture check Z48.[address] [address] 03/29/2024 [facility] Nutritional counseli ng Z71.3 ; CHF (congestive heart failure) I50.9 ; Hospital discharge follow-up Z09 ; Yeast infection B37.9 and Smoking F17.200 [facility] [address] [place] [address] 05/23/2024 [facility] Nutritional counseli ng Z71.3 ; Anxiety with depression F41.8 and Smoking F17.200 [facility] [address] [place] [address] 06/20/2024 [facility] Nutritional counseli ng Z71.3 ; Primary hypertension I10 ; Smoking F17.200 and Anxiety with depression F41.8 [address] [facility] [address] [facility] [place] [address] 10/10/2023 [facility] Anxiety with depress ion F41.[address] [place] [address] [facility] [address] [place] [address] 10/12/2023 [facility] [address] [place] [address] 01/04/2024 [facility] Shortness of breath R06.02 [facility] [address] [place] [address] 01/11/2024 [facility] Angina pectoris I20. 9 th [facility] [address] [place] [address] 02/06/2024 [facility] [address] [place] [address] 02/08/2024 [facility] [address] [place] [address] 02/13/2024 [facility] [address] [place] [address] 02/15/2024 [facility] [address] [place] [address] 02/19/2024 [facility] [address] [place] [address] 02/29/2024 [facility] [address] [place] [address] 03/01/[address] [facility] [address] [place] [address] 04/09/2024 [facility] [address] [facility] [place] [address] 08/28/2024 [facility] Blood glucose elevat ed R73.9 [facility] [address] [facility] [place] [address] 09/11/2024 [facility] Assessments Encounter Date Diagnosis (ICD Code) Assessment Notes Treatment Notes Treatment Clinical Notes Section Notes 10/10/2023 Anxiety with depression (ICD-10 - F41.8) 01/04/2024 Shortness of breath (ICD-10 - R06.02) 01/11/2024 Angina pectoris (ICD-10 - I20.9) 02/07/2024 Hospital discharge follow-up (ICD-10 - Z09) Will review hospital records 02/07/2024 Nutritional counseling (ICD-10 - Z71.3) Eating Healthy Foods: Care Instructions material was printed 03/22/2024 Nutritional counseling (ICD-10 - Z71.3) Eating Healthy Foods: Care Instructions material was printed 03/22/2024 Suture check (ICD-10 - Z48.89) one suture removed from right neck, patient tolerated well 03/29/2024 CHF (congestive heart failure) (ICD-10 - I50.9) 03/29/2024 Nutritional counseling (ICD-10 - Z71.3) Eating Healthy Foods: Care Instructions material was printed 05/23/2024 Anxiety with depression (ICD-10 - F41.8) 05/23/2024 Nutritional counseling (ICD-10 - Z71.3) Eating Healthy Foods: Care Instructions material was printed 06/20/2024 Primary hypertension (ICD-10 - I10) Medications as prescribed. Encourage diet and exercise. Low sodium diet. Notify office if blood pressure is over 150/90 on a regular basis. Followed by Cardiology. She is suppose to start cardiopulmonary rehab, will get her the number to call. 06/20/2024 Nutritional counseling (ICD-10 - Z71.3) Eating Healthy Foods: Care Instructions material was printed 08/28/2024 Blood glucose elevated (ICD-10 - R73.9) 09/05/2024 Nutritional counseling (ICD-10 - Z71.3) Eating Healthy Foods: Care Instructions material was printed 09/05/2024 Smoking (ICD-10 - F17.200) Smoking cessation drugs: nicotine replacement products material was printed, Smoking cessation drugs: nicotine replacement products material was printed 06/20/2024 Smoking (ICD-10 - F17.200) Smoking cessation drugs: nicotine replacement products material was printed, Smoking cessation drugs: nicotine replacement products material was printed 05/23/2024 Smoking (ICD-10 - F17.200) 02/07/2024 Anxiety with depression (ICD-10 - F41.8) 03/29/2024 Hospital discharge follow-up (ICD-10 - Z09) Records from [facility] reviewed. 02/07/2024 Chronic bronchitis, unspecified chronic bronchitis type (ICD-10 - J42) 03/29/2024 Yeast infection (ICD-10 - B37.9) 06/20/2024 Anxiety with depression (ICD-10 - F41.8) 09/05/2024 Lung nodule seen on imaging study (ICD-10 - R91.1) 09/05/2024 Mixed hyperlipidemia (ICD-10 - E78.2) 03/29/2024 Smoking (ICD-10 - F17.200) Smoking cessation drugs: nicotine replacement products material was printed, Smoking cessation drugs: nicotine replacement products material was printed 02/07/2024 CAD (coronary artery disease) (ICD-10 - I25.10) 02/07/2024 Mixed hyperlipidemia (ICD-10 - E78.2) 09/05/2024 Prediabetes (ICD-10 - R73.09) 02/07/2024 Seasonal allergies (ICD-10 - J30.2) 09/05/2024 Blood glucose elevated (ICD-10 - R73.9) 09/05/2024 Screening mammogram, encounter for (ICD-10 - Z12.31) 09/05/2024 Anxiety with depression (ICD-10 - F41.8) 02/07/2024 Angina pectoris (ICD-10 - I20.9) 02/07/2024 Chronic GERD (ICD-10 - K21.9) 09/05/2024 meterman use of drug (ICD-10 - Z79.899) 09/05/2024 Other Smoking cessati on drugs: nicotine replacement products (sp) material was printed 03/29/2024 Other Smoking cessati on drugs: nicotine replacement products (sp) material was printed 06/20/2024 Other Smoking cessati on drugs: nicotine replacement products (sp) material was printed Plan Of Treatment Pending Test Test Name Order Date MAMMOGRAM, SCREENING 09/05/[address] Low Dose without Contrast [id number] 09/05/2024 Next Appt Details Provider Name:Verónica Portillo Crews, 12/09/2024 08:20:00 AM, [address] [place], [address], Insurance Providers Payer Name Payer Address Payer Phone Subscriber Number Group Number Insured Name Patient Relationship to Insured Coverage Start Date Coverage End Date Medicaid [address] [place] [address] [id number] Etelvina Evans Self - patient is the insured Medications Administered Medication Instructions Date of Administration Dosage Notes Cyanocobalamin 1000mcg 05/11/2022 1000 ug Medical (General) History Medical History History ICD Code Depression F32.9 Anxiety F41.9 PTSD (post-traumatic stress disorder) F4 3.10 Major depressive disorder F32.9 Pain in left hip M25.552 CVA (cerebral vascular accident) I63.9 COPD (chronic obstructive pulmonary dise ase) J44.9 Glaucoma H40.9 Fibromyalgia M79.7 PVD (peripheral vascular disease) I73.9 GERD (gastroesophageal reflux disease) K 21.9 OCD (obsessive compulsive disorder) F42. 9 Panic attack F41.0 Surgical History Surgery Date(Month/Year) arm surgery, left gortex aorta surgery x3 head trauma stents, x3 01/2024 bowel surgery 01/2024 Hospitalization History Reason Date(Month/Year) [facility], x2 acute resp. failure, CHF 03/2024 [facility], x2 01/2024 COPD, [facility] 06/2023 surgeries
--- OUTSIDE RECORDS SUMMARY | 2024-10-04 23:49 | XMS_ITS | Encounter Summary ---
Author Organization [facility] Address [address] [facility] [place] [address] Phone Care Team Providers Care Web Site Developer Name Role Phone Arin Nowak [facility] Primary Care Provider [phone] Verónica Crews [facility] Primary Care Provider [phone] Reason for Visit * Reason Comments Med Refill Encounter Details Date Type Department Care Team (Late st Contact Info) Description 07/11/2022 Refill [facility] [address] [facility] [place] [address] Arin Nowak FNP [address] [facility] [place] [address] Social History Tobacco Use Types Packs/Day Years Used Date Smoking Tobacco: Every Day Cigarettes 0.5 52 Smokeless Tobacco: Never Alcohol Use Standard Drinks/Week Comments Not Currently 0 (1 standard drink = 0.6 oz pur e alcohol) history rarely PHQ-2 Answer Date Recorded Patient Health Questionnaire-2 Score 0 04/22/2021 Comments No Sex and Gender Information Value Date Recorded Sex Assigned at Not on file Legal Sex Female 11:11 AM CDT Gender Identity Not on file Sexual Orientation Not on file documented as of this encounter Plan of Treatment Not on file documented as of this encounter Visit Diagnoses Not on filedocumented in this encounter Care Teams Web Site Developer Relationship Specialty Start Date End Date Arin Nowak FNP [address] [facility] [place] [address] PCP - General Family Medicine 01/09/20 04/10/23 Verónica Crews FNP [facility] [address] [place] [address] PCP - General Family Medicine 05/08/23 documented as of this encounter
--- OUTSIDE RECORDS SUMMARY | 2024-10-04 23:49 | XMS_ITS | Encounter Summary ---
Author Organization [facility] Address [address] [facility] Jerry Osorio [place] [address] Phone Care Team Providers Care Air Traffic Control Operator Name Role Phone Verónica Crews Bandar [facility] Primary Care Provider [phone] Reason for Visit * Reason Comments Med Refill Encounter Details Date Type Department Care Team (Late st Contact Info) Description 02/05/2024 Refill [facility] [place] [address] [facility] [place] [address] Arin Nowak [facility] [address] [facility] [place] [address] Social History Tobacco Use Types Packs/Day Years Used Date Smoking Tobacco: Every Day Cigarettes 0.5 52 Smokeless Tobacco: Never Comments:01/10/24-REPORTS IS CUTTING BACK Alcohol Use Standard Drinks/Week Comments Not Currently 0 (1 standard drink = 0.6 oz pur e alcohol) rarely OASIS D0700: Social Isolation Answer Da te Recorded Frequency of experiencing loneliness or isolatio n Never 02/05/2024 OASIS A1250: Transportation Answer Date Recorded Lack of Transportation (Medical) No 02/05/2024 Lack of Transportation (Non-Medical) No 02/05/2024 Patient Unable or Declines to Respond No 02/05/2024 OASIS B1300: Health Literacy Answer Joe e Recorded Frequency of needing help to read materials from doctor or pharmacy Never 02/05/2024 AUDIT-C Answer Date Recorded Q1: How often [...] on file documented as of this encounter Miscellaneous Notes * Telephone Encounter - Layla Ly LPN - 02/05/2024 2:54 PM CST Patient PCP is Verónica Crews please request from her [employer] documented in this encounter Plan of Treatment Not on file documented as of this encounter Visit Diagnoses Not on filedocumented in this encounter Care Teams Air Traffic Control Operator Relationship Specialty Start Date End Date Verónica Crews FNP [facility] [address] [place] [address] PCP - General Family Medicine 05/08/23 documented as of this encounter
--- OUTSIDE RECORDS SUMMARY | 2024-10-04 23:49 | XMS_ITS | Encounter Summary ---
Author Organization [facility] Address [address] [facility] [address] Care Team Providers Care Steam Fitter Name Role Phone Jaswinder Duran Primary Care Provider [phone] Encounter Details Date Type Department Care Team (Late st Contact Info) Description 03/19/2007 Outpatient Historical [facility] [address] [facility], [address] [place] [address] Social History Tobacco Use Types Packs/Day Years Used Date Smoking Tobacco: Never Assessed Comments Unknown Sex and Gender Information Value Date Recorded Sex Assigned at Not on file Legal Sex Female 5:09 AM WOOD BARKER Gender Identity Not on file Sexual Orientation Not on file documented as of this encounter Plan of Treatment Not on file documented as of this encounter Visit Diagnoses Not on filedocumented in this encounter Care Teams Steam Fitter Relationship Specialty Start Date End Date Jaswinder Duran PA [address] [place] [phone] PCP - General 05/06/15 documented as of this encounter
--- OUTSIDE RECORDS SUMMARY | 2024-10-04 23:49 | XMS_ITS | Encounter Summary ---
Author Organization [facility] Address [address] [facility] [place] [address] Phone Care Team Providers Care Line Driver Name Role Phone Arin Nowak CLAIMS CONSULTANT Primary Care Provider [phone] Verónica Crews [facility] Primary Care Provider [phone] Reason for Visit * Reason Comments Med Refill Encounter Details Date Type Department Care Team (Late st Contact Info) Description 06/09/2021 Ref[facility] [address] [facility] [place] [address] Arin Nowak FNP [address] [place] [address] Essential hypertension Social History Tobacco Use Types Packs/Day Years Used Date Smoking Tobacco: Every Day Cigarettes 0.5 52 Smokeless Tobacco: Never Alcohol Use Standard Drinks/Week Comments Not Currently 0 (1 standard drink = 0.6 oz pur e alcohol) history rarely PHQ-2 Answer Date Recorded Patient Health Questionnaire-2 Score 0 04/22/2021 Comments Unknown Sex and Gender Information Value Date Recorded Sex Assigned at Not on file Legal Sex Female 11:11 AM CDT Gender Identity Not on file Sexual Orientation Not on file documented as of this encounter Plan of Treatment Not on file documented as of this encounter Visit Diagnoses Diagnosis Essential hypertension Unspecified essential hypertension documented in this encounter Care Teams Line Driver Relationship Specialty Start Date End Date Arin Nowak FNP [address] [facility] [place] [id number] PCP - General Family Medicine 01/09/20 04/10/23 Verónica Crews FNP [address] [address] PCP - General Family Medicine 05/08/23 documented as of this encounter
--- OUTSIDE RECORDS SUMMARY | 2024-10-04 23:50 | XMS_ITS | Encounter Summary ---
Author Organization [facility] Address [address] [place] [address] Care Team Providers Care Field Artillery Radar Operator Name Role Phone Jaswinder Duran Primary Care Provider [phone] Encounter Details Date Type Department Care Team (Latest Contact Info) Description 12/21/2006 Outpatient Historical [facility] [address] [facility] [address] [place] [address] David Newell MD [address] [facility] [place] [phone] Other and Unspecified Ovarian Cyst (Primary Dx) Social History Tobacco Use Types Packs/Day Years Used Date Smoking Tobacco: Never Assessed Comments Unknown Sex and Gender Information Value Date Recorded Sex Assigned at Not on file Legal Sex Female 5:09 AM SELLING SPECIALIST Gender Identity Not on file Sexual Orientation Not on file documented as of this encounter Plan of Treatment Not on file documented as of this encounter Visit Diagnoses Diagnosis Other and unspecified ovarian cyst- Primary documented in this encounter Care Teams Field Artillery Radar Operator Relationship Specialty Start Date End Date Jaswinder Duran PA [address] [place] [phone] PCP - General 05/06/15 documented as of this encounter
--- OUTSIDE RECORDS SUMMARY | 2024-10-04 23:50 | XMS_ITS | Encounter Summary ---
Author Organization [facility] Address [address] [place] [address] Care Team Providers Care Playroom Attendant Name Role Phone Jaswinder Duran Primary Care Provider [phone] Encounter Details Date Type Department Care Team (Latest Contact Info) Description 01/08/2007 Outpatient Historical [facility] Gen Spec Surg [place] [address] [facility] [address] [place] [address] David Comer MD NO ADDRESS ON FILE Unspecified Constipation (Primary Dx) Social History Tobacco Use Types Packs/Day Years Used Date Smoking Tobacco: Never Assessed Comments Unknown Sex and Gender Information Value Date Recorded Sex Assigned at Not on file 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
--- OUTSIDE RECORDS SUMMARY | 2024-10-04 23:51 | XMS_ITS | Encounter Summary ---
Author Organization [facility] Address [address] Jerry Osorio [place] [address] Phone Care Team Providers Care Barrel Brander Name Role Phone Arin Nowak [facility] Primary Care Provider [phone] Verónica Crews [facility] Primary Care Provider Reason for Visit * Reason Onset Date Comments Med Refill Med Refill 04/26/2021 Encounter Details Date Type Department Care Team (Late st Contact Info) Description 04/21/2021 Refill [facility] [address] [place] [address] Arin Nowak, [facility] [address] [place] [address] Social History Tobacco Use Types Packs/Day Years [...] on file documented as of this encounter Functional Status * Over the past 2 weeks, how often have you been bothered by any of the following problems? Question Answer Date of Assessment Author Little interest or pleasure in doing things Not at all 04/22/2021 9:50 AM Annette Echeverria L PN Feeling down, depressed, or hopeless Not at all 04/22/2021 9:50 AM Annette Echeverria L PN Patient Health Questionnaire -2 Score 0 04/22/2021 9:50 AM Annette Echeverria L PN documented as of this encounter Plan of Treatment Not on file documented as of this encounter Visit Diagnoses Not on filedocumented in this encounter Care Teams Barrel Brander Relationship Specialty Start Date End Date Arin Nowak FNP [address] [place] [address] PCP - General Family Medicine 01/09/20 04/10/23 Verónica Crews FNP [facility] [address] [place] [address] PCP - General Family Medicine 05/08/23 documented as of this encounter
--- OUTSIDE RECORDS SUMMARY | 2024-10-04 23:51 | XMS_ITS | Encounter Summary ---
Author Organization [facility] Address [address] [address] Phone Care Team Providers Care Tooling Manager Name Role Phone Arin Nowak Primary Care Provider [phone] Verónica Crews Primary Care Provider [phone] Reason for Visit * Reason Comments Med Refill Encounter Details Date Type Department Care Team (Late st Contact Info) Description 12/04/2020 [facility]ill [facility] [address] [address] Parth Treviño MD [address] [place], [place] [id number] Social History Tobacco Use Types Packs/Day Years Used Date Smoking Tobacco: Every Day Cigarettes 0.5 52 Smokeless Tobacco: Never Alcohol Use Standard Drinks/Week Comments Not Currently 0 (1 standard drink = 0.6 oz pur e alcohol) history rarely PHQ-2 Answer Date Recorded Patient Health Questionnaire-2 Score 0 10/07/2020 Comments Unknown Sex and Gender Information Value Date Recorded Sex Assigned at Not on file Legal Sex Female 11:11 AM CDT Gender Identity Not on file Sexual Orientation Not on file documented as of this encounter Miscellaneous Notes * Telephone Encounter - Etelvina Gillette MA - 01/13/2021 9:09 AM CST Pt was seen in [place] 01/12/21 RVISOR PASTRY * Telephone Encounter - MANUEL Bolanos - 12/04/2020 3:51 PM CDT When and where is ortho?? documented in this encounter Plan of Treatment Not on file documented as of this encounter Visit Diagnoses Not on filedocumented in this encounter Care Teams Tooling Manager Relationship Specialty Start Date End Date Arin Nowak FNP [address] [place] [address] PCP - General Family Medicine 01/09/20 04/10/23 Verónica Crews FNP [facility] [address] [place] [address] PCP - General Family Medicine 05/08/23 documented as of this encounter
--- OUTSIDE RECORDS SUMMARY | 2024-10-04 23:51 | XMS_ITS | Encounter Summary ---
Author Organization [facility] Address [address] [place] [address] Care Team Providers Care Bone Drier Name Role Phone Jaswinder Duran Primary Care Provider [phone] Encounter Details Date Type Department Care Team (Late st Contact Info) Description 11/13/2008 Ancillary Orders 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 Very mild coronary artery disease. 2. Normal left ventricular function. 3. No mitral insufficiency. sb/ / Narrative [facility] - 11/17/2008 10:29 AM CDT DATE OF PROCEDURE: 11/17/2008 INDICATION: Multiple episodes of chest pain. She has peripheral vascular disease with recent stenting of the right iliac artery and is scheduled for a [id number] fem-fem crossover for totally occluded left common iliac artery. PROCEDURE: The patient was draped and prepped in the usual sterile manner. The right groin was anesthetized with 1% local lidocaine solution. Access to the right femoral artery was obtained with an Argon needle with placement of a 6 Salvadorean introducer. Left ventricular pressure, selective coronary angiography, left ventriculography were performed with 6 Salvadorean right and left Ana 4 catheters and straight pigtail catheter. RESULTS: A. HEMODYNAMIC DATA: Left ventricular systolic pressure is 110 mmHg. Left ventricular end-diastolic pressure is 16 mmHg, aortic pressure 110/60 mmHg. B. RIGHT CORONARY ARTERY: This is a dominant vessel giving rise to a medium sized posterior descending artery, a small posterolateral branch and two medium sized posterolateral branches. There is 20% narrowing along the proximal bend of the right coronary artery and it is otherwise free of obstructive plaque. C. LEFT CORONARY SYSTEM: The left main coronary artery is free of obstructive plaque. The circumflex is a rudimentary vessel, which supplies only two tiny marginal branches. The circumflex is free of obstructive plaque. The circumflex territory is supplied by the right coronary artery. The left anterior descending artery gives rise to two small diagonals and a medium sized diagonal in the distal left anterior descending artery is tiny and barely reaches the apex. The left anterior descending artery system is free of obstructive plaque. D. LEFT VENTRICULOGRAM: Left ventricular systolic function is normal. Left ventricular ejection fraction is 70%. No mitral insufficiency. Procedure Note Bang Samaniego MD - 11/17/2008 DATE OF PROCEDURE: 11/17/2008 INDICATION: Multiple episodes of chest pain. She has peripheral vasculardisease with recent stenting of the right iliac artery and is scheduledfor a [id number]-uc-[id number] fem-fem crossover for totally occluded left commoniliac artery. PROCEDURE: The patient was draped and prepped in the usual sterilemanner. The right groin was anesthetized with 1% local lidocaine solution.Access to the right femoral artery was obtained with an Argon needle withplacement of a 6 Salvadorean introducer. Left ventricular pressure,selective coronary angiography, left ventriculography were performed with6 Salvadorean right and left Ana 4 catheters and straight pigtail catheter. RESULTS: A. HEMODYNAMIC DATA: Left ventricular systolic pressure is 110 mmHg.Left ventricular end-diastolic pressure is 16 mmHg, aortic pressure 110/60mmHg. B. RIGHT CORONARY ARTERY: This is a dominant vessel giving rise to amedium sized posterior descending artery, a small posterolateral branchand two medium sized posterolateral branches. There is 20% narrowingalong the proximal bend of the right coronary artery and it is otherwisefree of obstructive plaque. C. LEFT CORONARY SYSTEM: The left main coronary artery is free ofobstructive plaque. The circumflex is a rudimentary vessel, whichsupplies only two tiny marginal branches. The circumflex is free ofobstructive plaque. The circumflex territory is supplied by the rightcoronary artery. The left anterior descending artery gives rise to twosmall diagonals and a medium sized diagonal in the distal left anteriordescending artery is tiny and barely reaches the apex. The left anteriordescending artery system is free of obstructive plaque. D. LEFT VENTRICULOGRAM: Left ventricular systolic function is normal.Left ventricular ejection fraction is 70%. No mitral insufficiency. IMPRESSION 1. Very mild coronary artery disease. 2. Normal left ventricular function. 3. No mitral insufficiency. sb/ / us Bang Samaniego MD FLUOROSCOPY ORDERABLES Final R esult [facility] documented in this encounter Visit Diagnoses Diagnosis Other chest pain Chest pain Chest pain, unspecified Other chest pain documented in this encounter Care Teams Bone Drier Relationship Specialty Start Date End Date Jaswinder Duran PA [address] [place] [phone] PCP - General 05/06/15 documented as of this encounter
--- OUTSIDE RECORDS SUMMARY | 2024-10-04 23:51 | XMS_ITS | Encounter Summary ---
Author Organization [facility] Address [address] [place] [address] Care Team Providers Care Welding Machine Operator Resistance Name Role Phone Jaswinder Duran Primary Care Provider [phone] Encounter Details Date Type Department Care Team (Late st Contact Info) Description 10/21/2008 Ancillary Orders [facility] Cardiac Thoracic Vascular Surg [place] [address] [place] [address] Clovis Knutson MD NO ADDRESS ON FILE Social History Tobacco Use Types Packs/Day Years Used Date Smoking Tobacco: Every Day Cigarettes Comments:from 1 pack down to 5 cigs/day Alcohol Use Standard Drinks/Week Comments No 0 (1 standard drink = 0.6 oz pur e alcohol) Comments No Sex and Gender Information Value Date Recorded Sex Assigned at Not on file 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
--- OUTSIDE RECORDS SUMMARY | 2024-10-04 23:51 | XMS_ITS | Encounter Summary ---
Author Organization [facility] Address [address] [place] [address] Care Team Providers Care Landscape Nurseryman Name Role Phone Jaswinder Duran Primary Care Provider [phone] Encounter Details Date Type Department Care Team (Latest Contact Info) Description 10/21/2008 Ancillary Orders [facility] Interventional Radiology [place] [address] 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 Procedure Note Vu Swartz RadiologistMD - 09/05/2012 Final status, expect no report. Clovis Knutson MD FLUOROSCOPY ORDERABLES Final Result documented in this encounter Visit Diagnoses Diagnosis PVD (peripheral vascular disease) Peripheral vascular disease, unspecified documented in this encounter Care Teams Landscape Nurseryman Relationship Specialty Start Date End Date Jaswinder Duran PA [facility] [address] [phone] PCP - General 05/06/15 documented as of this encounter
--- OUTSIDE RECORDS SUMMARY | 2024-10-04 23:51 | XMS_ITS | Encounter Summary ---
Author Organization [facility] Address [address] [facility] [place] [address] Phone Care Team Providers Care Mark Up Designer Name Role Phone Arin Nowak [facility] Primary Care Provider [phone] Verónica Crews [facility] Primary Care Provider [phone] Reason for Visit * Reason Comments Med Refill Encounter Details Date Type Department Care Team (Late st Contact Info) Description 12/08/2020 Refill [facility] [address] [facility] [place] [address] Arin Nowak FNP [address] [facility] [facility] [place] [address] Social History Tobacco Use Types Packs/Day Years [...] on filedocumented in this encounter Care Teams Mark Up Designer Relationship Specialty Start Date End Date Arin Nowak FNP [address] [facility] [place] [address] PCP - General Family Medicine 01/09/20 04/10/23 Verónica Crews FNP [facility] [address] [place] [address] PCP - General Family Medicine 05/08/23 documented as of this encounter
--- OUTSIDE RECORDS SUMMARY | 2024-10-04 23:51 | XMS_ITS | Encounter Summary ---
Author Organization [facility] Address [address] [place] [address] Care Team Providers Care Kapok Machine Operator Name Role Phone Jaswinder Duran Primary Care Provider [phone] Encounter Details Date Type Department Care Team (Late st Contact Info) Description 11/13/[address] 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
--- OUTSIDE RECORDS SUMMARY | 2024-10-04 23:51 | XMS_ITS | Encounter Summary ---
Author Organization [facility] Address [address] [address] Phone Care Team Providers Care Book Retailer Name Role Phone Arin Nowak [facility] Primary Care Provider [phone] Verónica Crews [facility] Primary Care Provider [phone] Encounter Details Date Type Department Care Team (Late st Contact Info) Description 11/26/2020 Orders Only [facility] [address] [facility] [place] [address] Rona Godfrey, ROOMS DIRECTOR-IV [address] [address] Tear of left acetabular labrum, subsequent encounter (Primary Dx) Social History Tobacco Use Types [...] as of this encounter Visit Diagnoses Diagnosis Tear of left acetabular labrum, subsequent encounter- Primary documented in this encounter Care Teams Book Retailer Relationship Specialty Start Date End Date Arin Nowak FNP [address] [facility] [place] [address] PCP - General Family Medicine 01/09/20 04/10/23 Verónica Crews FNP [facility] [address] [place] [address] PCP - General Family Medicine 05/08/23 documented as of this encounter
--- OUTSIDE RECORDS SUMMARY | 2024-10-04 23:52 | XMS_ITS | Clinical Summary ---
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 calcified. Nosignificant regurgitation. The mean systolic gradient is 3mm Hg. The peak systolic gradient is 6mm Hg. The LVOT to aortic valve VTI ratio is 0.65. The valvearea is 2.1cm^2. The ratio of LVOT to aortic valve peak velocity is 0.61. AORTA: Aortic root: The root is normal-sized. MITRAL VALVE: Structurally normal valve. Mild regurgitation. Thepeak diastolic gradient is 2mm Hg. LEFT ATRIUM: The atrium is mildly dilated. RIGHT VENTRICLE: The cavity size is normal. Systolic function isnormal. PULMONIC VALVE: Structurally normal valve. No significantregurgitation. TRICUSPID VALVE: Structurally normal valve. Mild regurgitation. RIGHT ATRIUM: The atrium was normal in size. SYSTEMIC VEINS: Inferior vena cava: The IVC is normal-sized. PERICARDIUM: There is no pericardial effusion. Measurements Left ventricle Value Ref GLS, 2D -13.2 % --------- IVS, ED, LAX (N) 0.9 cm 0.6 - 0.9 DERRICK, LAX (L) 3.5 cm 3.8 - 5.2 DERRICK/bsa, LAX (N) 2.5 cm/m^2 2.3 - 3.1 DERRICK, LAX chord (N) 4.9 cm 3.8 - 5.2 ESD, LAX chord (N) 3.5 cm 2.2 - 3.5 DERRICK/bsa, LAX chord (H) 3.6 cm/m^2 2.3 - 3.1 ESD/bsa, LAX chord (H) 2.5 cm/m^2 1.3 - 2.1 FS, LAX chord (N) 30 % 27 - 45 IVS, ED (N) 0.9 cm 0.6 - 0.9 PW, ED (N) 0.9 cm 0.6 - 0.9 EDV, 2-p (N) 76 ml 46 - 106 ESV, 2-p (N) 33 ml 14 - 42 EF, 2-p (N) 57 % 54 - 74 SV, 2-p 43 ml --------- SV/bsa, 2-p 31.1 ml/m^2 --------- E', lat maribell, TDI (N) 11.6 cm/sec >=10.0 E/e', lat maribell, TDI (N) 6 <=13 E', med maribell, TDI (L) 5.9 cm/sec >=7.0 E/e', med maribell, TDI 12 --------- E', avg, TDI 8.7 cm/sec --------- E/e', avg, TDI (N) 8 <=14 LVOT Value Ref Diam, S 2.0 cm --------- Area 3.1 cm^2 --------- Peak rachel, S 0.76 m/sec --------- VTI, S 16.1 cm --------- Right ventricle Value Ref TAPSE, MM (N) 2.1 cm >=1.7 Pressure, S 34 mm Hg --------- Left atrium Value Ref LA ID 3.4 cm --------- SI dim, A4C 4.8 cm --------- Area ES, A4C (N) 17 cm^2 <=20 Area/bsa ES, A4C 12.61 cm^2/m^2 --------- SI dim, A2C 5.4 cm --------- SI dim, shorter 4.8 cm --------- Vol, ES, 1-p A2C (H) 62 ml 22 - 52 Vol/bsa, ES, 1-p A2C (H) 45 ml/m^2 13 - 40 Vol, ES, 2-p 59 ml --------- Vol/bsa, ES, 2-p (H) 43 ml/m^2 16 - 34 Right atrium Value Ref SI dim, ES, A4C (N) 5.1 cm 3.4 - 5.3 SI dim/bsa, ES, A4C (H) 3.7 cm/m^2 1.9 - 3.1 Area, ES, A4C (N) 15 cm^2 10 - 18 Vol, ES, 1-p A4C 39 ml --------- Vol/bsa, ES, 1-p A4C (N) 28 ml/m^2 9 - 33 Aortic valve Value Ref Peak v, S 1.2 m/sec --------- Mean v, S 0.81 m/sec --------- VTI, S 24.6 cm --------- Mean grad, S 3 mm Hg --------- Peak grad, S 6 mm Hg --------- LVOT/AV, VTI ratio 0.65 --------- KRISTY, VTI 2.1 cm^2 --------- KRISTY/bsa, VTI 1.49 cm^2/m^2 --------- LVOT/AV, Vpeak ratio 0.61 --------- KRISTY, Vmax 2.0 cm^2 --------- KRISTY/bsa, Vmax 1.43 cm^2/m^2 --------- Mitral valve Value Ref Peak E 0.73 m/sec --------- Peak A 0.88 m/sec --------- Decel time 201 ms --------- Peak grad, D 2 mm Hg --------- Peak E/A ratio 0.9 --------- Pulmonic valve Value Ref Peak v, S 0.98 m/sec --------- Peak grad, S 4 mm Hg --------- Tricuspid valve Value Ref TR peak v (N) 2.7 m/sec <=2.8 Peak RV-RA grad, S 29 mm Hg --------- Aortic root Value Ref Root diam, 2.6 cm --------- Pulmonary artery Value Ref Pressure, S 30 mm Hg --------- Systemic veins Value Ref Estimated RA pressure 5 mm Hg --------- Legend: (L) and (H) sahil values outside specified reference range. (N) carver values inside specified reference range. Procedure data: Comparison was made to the study of 01/18/2024. Study status: Routine. Procedure information: A transthoracic echocardiogram was performed.Image quality was adequate. The study was technically limited due to pooracoustic window availability, restricted patient mobility, and body habitus.Scanning was performed from the parasternal, apical, and subcostal acousticwindows. Transthoracic echocardiogram. Complete 2D, complete spectralDoppler, and color Doppler. Birthdate: Patient birthdate: 1955. Age:Patient is 68year(s) old. Sex: gender: female. Height: 154.9cm. 61in. Weight: 43.5kg. 96lb. Body mass index: 18.1kg/m^2. Body surfacearea: 1.38m^2. Blood pressure: 120/64 Patient status: Inpatient. Studydate: Study date: 07/24/2024. Study time: 08:02 AM. Location: ICU/CCU Prepared and Electronically Authenticated Amrit Gonzalez [id number] Jona Jensen DO ORDERABLES Final Result INTERFACE SYSTEM Refer to clinic/hospital department * (ABNORMAL) URINALYSIS WITH REFLEX MICROSCOPIC (07/24/2024 12:20 AM CDT) COLOR UA Yellow Pale to Dark Yellow 07/24/2024 12:48 AM CDT [facility] [place] CLARITY UA Clear Clear 07/24/2024 12:48 AM CDT [facility] [place] SPECIFIC GRAVITY UA >=1.030 1.003 - 1.035 07/24/2024 12:48 AM CDT [facility] [place] PH UA 5.5 5.0 - 8.0 07/24/2024 12:48 AM CDT [facility] [place] LEUKOCYTE ESTERASE UA Negative Negative 07/24/2024 12:48 AM CDT [facility] [place] NITRITE UA Negative Negative 07/24/2024 12:48 AM CDT [facility] [place] PROTEIN UA 1+(A) Negative 07/24/2024 12:48 AM CDT [facility] [place] GLUCOSE UA Negative Negative, Normal 07/24/2024 12:48 AM CDT [facility] KETONES UA Negative Negative 07/24/2024 12:48 AM CDT [employer] [facility] UROBILINOGEN UA 0.2 <2.0 mg/dL 12:48 AM CDT [facility] SERVICES [facility] BILIRUBIN UA Negative Negative 07/24/2024 12:48 AM CDT [facility] [employer] [facility] BLOOD UA Trace(A) Negative 07/24/2024 12:48 AM CDT [facility] [employer] SERVICES [facility] WBC UA 3-5(A) 0 - 2 /hpf 07/24/2024 12:48 AM CDT [facility] [employer] SERVICES [facility] RBC UA 6-10(A) 0 - 2 /hpf 07/24/2024 12:48 AM CDT [employer] [facility] BACTERIA UA 1+(A) Negative /hpf 07/24/2024 12:48 AM CDT [employer] [facility] EPITHELIAL CELLS, URINE 0-5 0 - 5 /hpf 07/24/2024 12:48 AM CDT [employer] [facility] TRANSITIONAL EPI 0-2 0 - 2 /hpf 07/25/19 12:48 AM CDT [employer] [facility] Urine (Urine, indwelling (Norris) catheter) Collection / Unknown 07/24/2024 12:20 AM CDT 07/24/2024 12:22 AM CDT Jona Jensen DO URINE ORDERABLES Final Result [facility] [employer] [facility] CLIA# [id number] [address] [place] [address] * XR ABDOMEN FOR FEEDING TUBE 1 VW (07/23/2024 9:43 PM CDT) Anatomical Region Laterality Modality Abdomen Computed Radiogr aphy 07/23/2024 9:43 PM CDT Impressions 07/23/2024 10:12 PM CDT IMPRESSION: 1. Nasogastric tube tip in the stomach. DICTATION LOCATION: Location 4. Narrative 07/23/2024 10:12 PM CDT EXAMINATION: XR ABDOMEN FOR FEEDING TUBE 1 VW DATE: 07/23/2024 9:43 PM INDICATION: Nasogastric tube placement. TECHNIQUE: A semiupright view of the abdomen was obtained. COMPARISON: None. FINDINGS: The lower abdomen is excluded. The nasogastric tube tip is in the stomach. The endotracheal tube tip is 3.8 cm above the drea. Surgical clips and a vascular stent are noted in the abdomen. Procedure Note Cody Vaughn MD - 07/23/2024 EXAMINATION: XR ABDOMEN FOR FEEDING TUBE 1 VW DATE: 07/23/2024 9:43 PM INDICATION: Nasogastric tube placement. TECHNIQUE: A semiupright view of the abdomen was obtained. COMPARISON: None. FINDINGS: The lower abdomen is excluded. The nasogastric tube tip is in the stomach. The endotracheal tube tip is 3.8 cm above the drea. Surgical clips and a vascular stent are noted in the abdomen. IMPRESSION: 1. Nasogastric tube tip in the stomach. DICTATION LOCATION: Location 4. Jona Jensen DO DIAGNOSTIC IMAGING ORDERABLES Final Result * (ABNORMAL) TROPONIN 6 HR, 5TH GEN (07/23/2024 8:38 PM CDT) TROPONIN T, 6 HR 5TH GEN 19(H) <11 ng/L 07/23/2024 9:10 PM CDT [facility] DELTA 6HR TROPONIN T -9 See Interp. 07/23/2024 9:10 PM CDT [facility] [employer] [facility] Blood Collection / Unknown 07/23/2024 8:38 PM CDT 07/23/2024 8:40 PM CDT Narrative [facility] [employer] [facility] - 07/23/2024 9:10 PM CDT Troponin elevated. Delta indeterminate. Jona Jensen DO CHEMISTRY ORDERABLES Final Re sult [facility] [employer] [facility] CLIA# [id number] [address] [place] [address] * CTA CHEST W AND/OR WO CONTRAST (07/23/2024 6:05 PM CDT) Anatomical Region Laterality Modality Chest Computed Tomogra phy 07/23/2024 5:53 PM CDT Impressions 07/23/2024 6:36 PM CDT IMPRESSION: 1. No CT evidence for acute pulmonary embolism. 2. Cardiomegaly with bilateral small pleural effusions, interstitial septal thickening and patchy ground glass opacities likely reflective of at least mild pulmonary edema. 3. Emphysematous changes of mild severity. 4. Endotracheal tube above the drea. Secretions in the right main bronchus and bronchus intermedius. Scattered areas of bronchial wall thickening and obscuration of a few bronchi bilaterally, particularly in the right lower lobe, consider aspiration. 5. Several pulmonary nodules, largest measuring on average at 5 mm along the pleural surface in the right middle lobe, mildly larger than the available prior imaging. Consider surveillance CT chest in one year for reassessment. 6. Gastroesophageal reflux. Bilateral probable adrenal adenomas. Bilateral small nephroliths versus vascular calcifications. 7. Partially visualized abdominal aortic aneurysm which is not visible on available prior imaging. Follow-up CTA of the abdomen as desired clinically. DICTATION LOCATION: Location 4 Narrative 07/23/2024 6:[address] ANGIOGRAPHY OF THE CHEST WITH AND WITHOUT IV CONTRAST AND RECONSTRUCTIONS DATE: 07/23/2024 6:05 PM HISTORY: Hypoxic hypercarbic respiratory failure. Pulmonary embolism suspected. COMPARISON: CT chest 11/22/2008. TECHNIQUE: CTA of the chest is performed with and without administration of 80 mL IV Isovue-300. Coronal and sagittal reformatted images are obtained with computer generated 3-D reconstructed images (MIPS) performed at a separate workstation. The examination was performed with the adjustment of mA according to the patient size and/or the use of Iterative Reconstruction Technique. FINDINGS: HEART/VESSELS: Heart size is mildly enlarged. No pericardial effusion. Thoracic aorta is poorly opacified with contrast containing numerous artifacts throughout the lumen, secondary to the phase of imaging. The pulmonary arteries are well-opacified with contrast, without visible internal filling defects. CORONARY ARTERIES: Multivessel coronary artery calcifications. MEDIASTINUM AND MEDARDO: Right hilar lymph node measuring 11 mm in short axis. Subcentimeter mediastinal lymph nodes. LUNGS: Small bilateral pleural effusions with bibasilar compressive atelectasis. Centrilobular emphysema. Endotracheal tube in place above the drea. Secretions within the lumen particularly of the right main bronchus and bronchus intermedius with obscuration of multiple bronchi in the right lower lobe. Bilateral mild patchy groundglass opacities and interstitial thickening suggestive of pulmonary edema. Pleural-based solid pulmonary nodule within the right middle lobe laterally on image 307 of series 12 averages 5 mm, and does appear present on the CTA abdomen of 08/08/2013, measuring mildly larger on today's study. Left lower lobe nodule on image 374 at 3 mm is also mildly larger than on the prior study. Mild secretions and/or mucous plugging involving a few bronchi within the left lower lobe and right upper lobe. PLEURA: Small bilateral pleural effusions. No pneumothorax. CHEST WALL AND LOWER NECK: Within normal limits. UPPER ABDOMEN: Fluid within the mid to distal esophageal lumen. Contrast within the hepatic veins and inferior vena cava may indicate heart failure. Small calcifications within the central aspects of both kidneys may relate to nephrolithiasis versus vascular calcifications. Bilateral adrenal nodules which are present on previous studies and are likely adenomas measuring 2.6 x 1.8 cm on the left and 1.9 x 1.3 cm on the right. Partially visualized infrarenal abdominal aortic aneurysm which is incompletely characterized on this study measuring at least 3.2 x 2.4 cm in AP and transverse dimensions, not present on the 2014 CTA study. No more recent studies are available for comparison. BONES: Multilevel spondylosis in the spine. Mild compression deformity of the T9 vertebral body is chronic. Several old left rib fractures. Procedure Note Estephanie Ballardew, DO - 07/23/2024 CT ANGIOGRAPHY OF THE CHEST WITH AND WITHOUT IV CONTRAST AND RECONSTRUCTIONS DATE: 07/23/2024 6:05 PM HISTORY: Hypoxic hypercarbic respiratory failure. Pulmonary embolism suspected. COMPARISON: CT chest 11/22/2008. TECHNIQUE: CTA of the chest is performed with and without administration of 80 mL IV Isovue-300. Coronal and sagittal reformatted images are obtained with computer generated 3-D reconstructed images (MIPS) performed at a separate workstation. The examination was performed with the adjustment of mA according to the patient size and/or the use of Iterative Reconstruction Technique. FINDINGS: HEART/VESSELS: Heart size is mildly enlarged. No pericardial effusion. Thoracic aorta is poorly opacified with contrast containing numerous artifacts throughout the lumen, secondary to the phase of imaging. The pulmonary arteries are well-opacified with contrast, without visible internal filling defects. CORONARY ARTERIES: Multivessel coronary artery calcifications. MEDIASTINUM AND MEDARDO: Right hilar lymph node measuring 11 mm in short axis. Subcentimeter mediastinal lymph nodes. LUNGS: Small bilateral pleural effusions with bibasilar compressive atelectasis. Centrilobular emphysema. Endotracheal tube in place above the drea. Secretions within the lumen particularly of the right main bronchus and bronchus intermedius with obscuration of multiple bronchi in the right lower lobe. Bilateral mild patchy groundglass opacities and interstitial thickening suggestive of pulmonary edema. Pleural-based solid pulmonary nodule within the right middle lobe laterally on image 307 of series 12 averages 5 mm, and does appear present on the CTA abdomen of 08/08/2013, measuring mildly larger on today's study. Left lower lobe nodule on image 374 at 3 mm is also mildly larger than on the prior study. Mild secretions and/or mucous plugging involving a few bronchi within the left lower lobe and right upper lobe. PLEURA: Small bilateral pleural effusions. No pneumothorax. CHEST WALL AND LOWER NECK: Within normal limits. UPPER ABDOMEN: Fluid within the mid to distal esophageal lumen. Contrast within the hepatic veins and inferior vena cava may indicate heart failure. Small calcifications within the central aspects of both kidneys may relate to nephrolithiasis versus vascular calcifications. Bilateral adrenal nodules which are present on previous studies and are likely adenomas measuring 2.6 x 1.8 cm on the left and 1.9 x 1.3 cm on the right. Partially visualized infrarenal abdominal aortic aneurysm which is incompletely characterized on this study measuring at least 3.2 x 2.4 cm in AP and transverse dimensions, not present on the 2013 CTA study. No more recent studies are available for comparison. BONES: Multilevel spondylosis in the spine. Mild compression deformity of the T9 vertebral body is chronic. Several old left rib fractures. IMPRESSION: 1. No CT evidence for acute pulmonary embolism. 2. Cardiomegaly with bilateral small pleural effusions, interstitial septal thickening and patchy ground glass opacities likely reflective of at least mild pulmonary edema. 3. Emphysematous changes of mild severity. 4. Endotracheal tube above the drea. Secretions in the right main bronchus and bronchus intermedius. Scattered areas of bronchial wall thickening and obscuration of a few bronchi bilaterally, particularly in the right lower lobe, consider aspiration. 5. Several pulmonary nodules, largest measuring on average at 5 mm along the pleural surface in the right middle lobe, mildly larger than the available prior imaging. Consider surveillance CT chest in one year for reassessment. 6. Gastroesophageal reflux. Bilateral probable adrenal adenomas. Bilateral small nephroliths versus vascular calcifications. 7. Partially visualized abdominal aortic aneurysm which is not visible on available prior imaging. Follow-up CTA of the abdomen as desired clinically. DICTATION LOCATION: Location [address] ORDERABLES Fin al Result * (ABNORMAL) BLOOD GAS ARTERIAL (07/23/2024 5:01 PM CDT) PH ARTERIAL 7.40 7.35 - 7.45 07/23/2024 5:14 PM [facility] [employer] [facility] PCO2 ARTERIAL 44 35 - 48 mm Hg 07/23/2024 5:14 PM [facility] [employer] [facility] PO2 ARTERIAL 104 83 - 108 mm Hg 07/23/2024 5:14 PM [facility] [employer] [facility] HCO3 ARTERIAL 27(H) 22 - 26 mmol/L 07/23/2024 5:14 PM [facility] [employer] [facility] BASE EXCESS ABG 2.1 -2.0 - 3.0 mmol/L 07/23/2024 5:14 PM [facility] [employer] [facility] Comment:Base Excess Estimate d; Assumes 15.0 g/dl Hemoglobin HEMOGLOBIN ABG 11.5(L) 11.8 - 14.8 g/dL 07/23/2024 5:14 PM [facility] [employer] [facility] O2 SAT EST ARTERIAL 98 94 - 98 % 07/23/2024 5:14 PM [facility] [employer] [facility] P/F RATIO ARTERIAL 260 07/23/2024 5:14 PM [facility] [employer] [facility] OXYGEN MODE Ventilator 07/23/2024 5:14 PM [facility] [employer] [facility] FIO2 40.0 21.0 - 100.0 % 07/23/2024 5:14 PM [facility] [employer] [facility] VENT MODE Assist Control 07/23/2024 5:14 PM [facility] [employer] [facility] VENT SETTINGS Vt 07/23/2024 5:14 PM [facility] [employer] [facility] Comment:370, 16, +6 Blood, arterial Arterial / Unknown 2024 5:01 PM CDT 07/23/2024 5:11 PM CDT Jona Jensen DO ABG ORDERABLES Final Result Performing Organization Address [facility]/ZIP Co de Phone Number [facility] [employer] [facility] CLIA# [id number] [address] [place] [address] * BLOOD CULTURE (07/23/2024 3:18 PM CDT) Only the most recent of2 resultswithin the time period is included. Pathologist [facility] BLOOD CULTURE No growth 07/28/2024 9:04 PM CDT [facility] [employer] [facility] Blood (Peripheral) Venipuncture / Unknown 07/23/2024 3:18 PM CDT 07/23/2024 3:27 PM CDT Jona Jensen DO MICROBIOLOGY - GENERAL ORDERA BLES Final Result Performing Organization Address [facility] Co de Phone Number [facility] [employer] [facility] CLIA# [id number] [address] [place] [address] * EXTRA TUBE (SST/GOLD) (07/23/2024 3:16 PM CDT) Blood Collection / Unknown 07/23/2024 3:16 PM CDT 07/23/2024 7:48 PM CDT External Provider [facility] CHEMISTRY ORDERABLES Fin al Result Performing Organization Address [facility] Co de Phone Number [facility] [employer] [facility] CLIA# [id number] [address] [place] [address] * (ABNORMAL) TROPONIN 2 HR, 5TH GEN (07/23/2024 3:16 PM CDT) TROPONIN T, 2 HR 5TH GEN 29(H) <=10 ng/L 07/23/2024 3:53 PM CDT [facility] Blood Venipuncture / Unknown 07/23/2024 3:16 PM CDT 07/23/2024 3:27 PM CDT [facility] - 07/23/2024 3:53 PM CDT Troponin elevated. Delay in collection of timed specimen beyond recommended collection interval. Results must be interpreted in clinical context. Unable to calculate delta. Jona Jensen DO CHEMISTRY ORDERABLES Final Re sult [facility] [employer] [facility] CLIA# [id number] [address] [place] [address] * (ABNORMAL) TROPONIN BASELINE, 5TH GEN (07/23/2024 3:16 PM CDT) TROPONIN T, BASELINE 5TH GEN 28(H) <=10 ng/L 07/23/2024 3:58 PM CDT [facility] [employer] [facility] Blood Venipuncture / Unknown 07/23/2024 3:16 PM CDT 07/23/2024 3:27 PM CDT [facility] [employer] [facility] - 07/23/2024 3:58 PM CDT Troponin elevated. Jona Jensen DO CHEMISTRY ORDERABLES Final Re sult Performing Organization Address City/[facility]/ZIP Co de Phone Number [facility] [employer] [facility] CLIA# [id number] [address] [place] [address] * (ABNORMAL) PROCALCITONIN (07/23/2024 3:16 PM CDT) PROCALCITONIN 0.30(H) <=0.25 ng/mL 07/23/2024 7:30 PM CDT [facility] Blood Venipuncture / Unknown 07/23/2024 3:16 PM CDT 07/23/2024 3:27 PM CDT [facility] [facility] - 07/23/2024 7:30 PM CDT The utility of procalcitonin is limited/NOT recommended in certain populations (e.g. newborns, dialysis/ESRD, patients with recent major surgery/trauma/moreno, liver cirrhosis, viral hepatitis, certain cancers, etc.). Procalcitonin levels MUST be interpreted in the context of the patient's clinical condition and CANNOT be solely relied upon for diagnosis of infection. <0.25 ng/mL: Bacterial infection unlikely, particularly lower respiratory tract infections. <0.5 ng/mL: Low risk for progression to severe sepsis/septic shock. Localized infection possible. Measurements done early (<6 hours) after systemic process starts may still be low. 0.5-2 ng/mL: Moderate risk for progression to severe sepsis/septic shock. >2 ng/mL: High risk for progression to severe sepsis/septic shock. If antibiotics ARE administered, repeat testing is recommended every 2-3 days to help guide antibiotic cessation. Once a decrease of 80% or more has occurred from baseline, discontinuation of antibiotics should strongly be considered in clinically stable patients. Procalcitonin is produced in the setting of systemic inflammation, particularly bacterial infections. It is detectable within 2-4 hours and peaks within 6-24 hours. Jona Jensen DO CHEMISTRY ORDERABLES Final Re sult [facility] [employer] [facility] CLIA# [id number] [address] [place] [address] * LACTIC ACID (07/23/2024 3:16 PM CDT) LACTIC ACID 1.5 <=2.0 mmol/L 07/23/2024 3:58 PM CDT [facility] [employer] [facility] Blood Venipuncture / Unknown 07/23/2024 3:16 PM CDT 07/23/2024 3:27 PM CDT Jona Jensen DO CHEMISTRY ORDERABLES Final Re sult [facility] [employer] [facility] CLIA# [id number] [address] [place] [address] * CK (07/23/2024 3:16 PM CDT) [facility] CK 56 10 - 145 U/L 07/23/2024 4:39 PM CDT [facility] Blood Venipuncture / Unknown 07/23/2024 3:16 PM CDT 07/23/2024 3:27 PM CDT Jona Jensen DO CHEMISTRY ORDERABLES Final Re sult Performing Organization Address [facility]/ZIP Co de Phone Number [facility] CLIA# [id number] [address] [place] [address] * MRSA PCR RAPID SCREEN (07/23/2024 3:13 PM CDT) [facility] MRSA PCR RESULT MRSA not detected MRSA not detected 07/23/2024 4:49 PM CDT [facility] Surveillance ANTERIOR NARES SWAB / Unknown Collection / Unknown 07/23/2024 3:13 PM CDT 07/23/2024 3:26 PM CDT Narrative [facility] - 07/23/2024 4:49 PM CDT This assay is used to detect Methicillin-Resistant S. aureus (MRSA) colonization of the nares. PLEASE NOTE: This test has not been approved to monitor effectiveness of MRSA decolonization. Residual DNA may temporarily be present after successful decolonization. This test was performed using an FDA approved screening methodology. Jona Jensen DO MICROBIOLOGY - GENERAL ORDERA BLES Final Result Performing Organization Address [facility]/ZIP Co de Phone Number [facility] CLIA# [id number] [address] [place] [address] * XR CHEST PA OR AP 1 VW (07/23/2024 3:06 PM CDT) Anatomical Region Laterality Modality Chest Computed Radiogr aphy 07/23/2024 3:06 PM CDT Impressions 07/23/2024 3:11 PM CDT IMPRESSION: Support devices as above. No pneumothorax. Decreased pulmonary edema pattern, now mild. Small left pleural effusion. DICTATION LOCATION: Location [address] [place] [address] Narrative 07/23/2024 3:11 PM CDT EXAMINATION: XR CHEST PA OR AP 1 VW, 07/23/2024 3:06 PM HISTORY: Hypoxia. See Reason for Exam COMPARISON: Prior chest radiographs, most recently from earlier the same day at an outside facility. FINDINGS: An endotracheal tube ends in the mid thoracic trachea 4.8 cm from the drea. The patient is rotated. Diffuse bilateral interstitial opacities have decreased. No new focal consolidation or enlarging right pleural effusion. Small left pleural effusion is noted. There is no pneumothorax. The cardiomediastinal silhouette is unchanged. Procedure Note Reji Wesley MD - 07/23/2024 EXAMINATION: XR CHEST PA OR AP 1 VW, 07/23/2024 3:06 PM HISTORY: Hypoxia. See Reason for Exam COMPARISON: Prior chest radiographs, most recently from earlier the same day at an outside facility. FINDINGS: An endotracheal tube ends in the mid thoracic trachea 4.8 cm from the drea. The patient is rotated. Diffuse bilateral interstitial opacities have decreased. No new focal consolidation or enlarging right pleural effusion. Small left pleural effusion is noted. There is no pneumothorax. The cardiomediastinal silhouette is unchanged. IMPRESSION: Support devices as above. No pneumothorax. Decreased pulmonary edema pattern, now mild. Small left pleural effusion. DICTATION LOCATION: Location [address] [place] [address] Jona Jensen DO DIAGNOSTIC IMAGING ORDERABLES Final Result * PNEUMONIA PATHOGEN PCR PANEL (07/23/2024 3:04 PM CDT) Pathologist [facility] Pneumonia Pathogen PCR Panel NOT DETECTED No nucleic acids detected. 07/23/2024 10:45 PM CDT [facility] Sputum SPUTUM SPECIMEN OBTAINED BY ASPIRATION / Unknown Collection / Unknown 07/23/2024 3:04 PM CDT 07/23/2024 3:14 PM [address] [facility] - 07/23/2024 10:45 PM CDT A negative result does not exclude the possibility of infection. A semi-quantitative (copies/mL) result is provided for bacteria. This panel does not distinguish between nucleic acid from live or bacteria or virus. Culture is needed for recovery of bacterial isolates and antimicrobial susceptibility testing. The Film Array Pneumonia Pathogen PCR Panel is a multiplexed nucleic acid detection test for 33 targets of bacteria, viruses, and resistance markers in respiratory specimens that cause pneumonia. Bacteria: Acinetobacter calcoaceticus-baumannii complex Enterobacter cloacae complex Escherichia coli Haemophilus influenzae Klebsiella aerogenes Klebsiella oxytoca Klebsiella pneumoniae group Moraxella catarrhalis Proteus spp. Pseudomonas aeruginosa Serratia marcescens Staphylococcus aureus Streptococcus agalactiae Streptococcus pneumoniae Streptococcus pyogenes Atypical Bacteria: Chlamydia pneumoniae Legionella pneumophila Mycoplasma pneumoniae Viruses: Adenovirus Coronavirus (229E, OC43, HKU1, NL63) Human Metapneumovirus Human Rhinovirus/Enterovirus Influenza A Influenza B Parainfluenza Virus Respiratory Syncytial Virus Antimicrobial Resistance Genes: CTX-M IMP KPC NDM OXA-48-like VIM mecA/C and MREJ Jona Jensen DO MICROBIOLOGY - GENERAL ORDERA BLES Final Result [facility]# [id number] [address] [place] [id number] * RESPIRATORY PATHOGEN PCR PANEL (07/23/2024 3:04 PM CDT) [facility] Respiratory Pathogen PCR Panel NOT DETECTED No respiratory pathogen nucleic acids detected. 07/23/2024 7:50 PM CDT [facility] COVID-19 PCR NOT DETECTED Not Detected 07/23/2024 7:50 PM CDT [facility] Upper Respiratory ENTIRE NASOPHARYNX / Unknown Collection / Unknown 07/23/2024 3:04 PM CDT 07/23/2024 3:26 PM CDT [facility] LABORATORY [facility] - 07/23/2024 7:50 PM CDT The Film Array Respiratory Panel (RP2.1) is a multiplex nucleic acid detection test for 22 targets. Viruses: Adenovirus Coronavirus HKU1, NL63, 229E, and OC43 COVID-19/Severe Acute Respiratory Syndrome Coronavirus 2 Influenza A with the following subtypes: H1, H1-2009, and H3 Influenza B Human Metapneumovirus Parainfluenza virus 1, 2, 3, and 4 Respiratory Syncytial virus (RSV) Rhinovirus/Enterovirus (cannot differentiate due to genetic similarities) Bacteria: Bordetella pertussis Bordetella parapertussis Chlamydophila pneumoniae Mycoplasma pneumoniae Jona Jensen DO MICROBIOLOGY - GENERAL ORDERA BLES Final Result Performing Organization Address [facility] Co de Phone Number [facility]# [id number] [address] [place] [address] * SPUTUM CULTURE WITH GRAM STAIN (07/23/2024 3:04 PM CDT) CULTURE No pathogens isolated. Normal respiratory sherrie present. 07/26/2024 11:05 AM CDT [facility] LABORATORY [facility] GRAM STAIN Non diagnostic pattern 07/26/2024 11:05 AM CDT [facility] LABORATORY [facility] GRAM STAIN 2+ (Few) Polymorphonuclear WBC 07/26/2024 11:05 AM CDT [facility] LABORATORY [facility] Sputum SPUTUM SPECIMEN OBTAINED BY ASPIRATION / Unknown Collection / Unknown 07/23/2024 3:04 PM CDT 07/23/2024 6:50 PM CDT Jona Jensen DO MICROBIOLOGY - GENERAL ORDERA BLES Final Result Performing Organization Address [facility] de Phone Number [facility]# [id number] [address] [place] [address] from Last 3 Months Insurance [place] Advance Directives For more information, please contact: [phone] * Full Code (Latest Code Status on File) Date Activated Date Inactivated Comments 07/24/2024 1:30 PM 07/30/2024 8:15 PM * Default Full Code - Needs Discussion Date Activated Date Inactivated Comments 07/23/2024 2:58 PM 07/24/2024 1:30 PM
--- OUTSIDE RECORDS SUMMARY | 2024-10-04 23:52 | XMS_ITS | Encounter Summary ---
Author Organization [facility] Address [address] Attn: Epic Prelude ADT [place] [address] Care Team Providers Care Senior Sql Server Database Developer Name Role Phone Jaswinder Duran Primary Care Provider [phone] Encounter Details Date Type Department Care Team (Late st Contact Info) Description 06/06/2001 Inpatient Historical Jaime Scales MD [address] [address] Social History Tobacco Use Types Packs/Day Years Used Date Smoking Tobacco: Never Assessed Comments Unknown Sex and Gender Information Value Date Recorded Sex Assigned at Not on file Legal Sex Female 5:09 AM UNDERBASTER Gender Identity Not on file Sexual Orientation Not on file documented as of this encounter Plan of Treatment Not on file documented as of this encounter Visit Diagnoses Not on filedocumented in this encounter Care Teams Senior Sql Server Database Developer Relationship Specialty Start Date End Date Jaswinder Duran PA [address] [place] [phone] PCP - General 05/06/15 documented as of this encounter
--- OUTSIDE RECORDS SUMMARY | 2024-10-04 23:52 | XMS_ITS | Encounter Summary ---
Author Organization [facility] Address [address] [place] [address] Care Team Providers Care Manager Intern Name Role Phone Jaswinder Duran Primary Care Provider [phone] Encounter Details Date Type Department Care Team (Latest Contact Info) Description 11/30/2001 Outpatient Historical [address] [address] Dottie Yusuf MD [address] [place] [address] ALCOHOL ABUSE-UNSPEC (Primary Dx); ANXIETY STATE NOS; OBSESSIVE-COMPULSIVE DIS Social History Tobacco Use Types Packs/Day Years Used Date Smoking Tobacco: Never Assessed Comments Unknown Sex and Gender Information Value Date Recorded Sex Assigned at Not on file 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
--- OUTSIDE RECORDS SUMMARY | 2024-10-04 23:52 | XMS_ITS | Encounter Summary ---
Author Organization [facility] Address [address] [place] [address] Care Team Providers Care Factory Clerk Name Role Phone Jaswinder Duran Primary Care Provider [phone] Encounter Details Date Type Department Care Team (Latest Contact Info) Description 04/24/2002 Outpatient Historical [facility] [address] [place] [address] Jaime Scales MD [address] [address] FRACTURE TWO RIBS-CLOSED (Primary Dx) Social History Tobacco Use Types Packs/Day Years Used Date Smoking Tobacco: Never Assessed Comments Unknown Sex and Gender Information Value Date Recorded Sex Assigned at Not on file Legal Sex Female 5:09 AM STUDENT SERVICES DIRECTOR Gender Identity Not on file Sexual Orientation Not on file documented as of this encounter Plan of Treatment Not on file documented as of this encounter Visit Diagnoses Diagnosis Closed fracture of two ribs- Primary documented in this encounter Care Teams Factory Clerk Relationship Specialty Start Date End Date Jaswinder Duran PA [address] [place] [phone] PCP - General 05/06/15 documented as of this encounter
--- OUTSIDE RECORDS SUMMARY | 2024-10-04 23:52 | XMS_ITS | Encounter Summary ---
Author Organization [facility] Address [address] [place] [address] Phone Care Team Providers Care Honey Grader And Blender Name Role Phone Arin Nowak [facility] Primary Care Provider Verónica Crews [facility] Primary Care Provider [phone] Reason for Visit * Reason Onset Date Comments Med Refill Med Refill 08/04/2020 Encounter Details Date Type Department Care Team (Late st Contact Info) Description 07/31/2020 Refill [facility] [address] [place] [address] Airn Nowak, [facility] [address] [place] [address] Social History Tobacco Use Types Packs/Day Years Used Date Smoking Tobacco: Every Day Cigarettes 0.5 52 Smokeless Tobacco: Never Alcohol Use Standard Drinks/Week Comments Not Currently 0 (1 standard drink = 0.6 oz pur e alcohol) PHQ-2 Answer Date Recorded PHQ-2 Score 0 06/04/2020 Comments Unknown Sex and Gender Information Value Date Recorded Sex Assigned at Not on file Legal Sex Female 11:11 AM CDT Gender Identity Not on file Sexual Orientation Not on file documented as of this encounter Plan of Treatment Not on file documented as of this encounter Visit Diagnoses Not on filedocumented in this encounter Additional Health Concerns Infection Onset Date Last Indicated Resolved Time COVID-19 Rule-Out 11/03/2020 11/03/2020 11/03/2020 4:07 PM CDT COVID-19 (Confirmed) 11/03/2020 11/03/2020 021 4:23 AM CDT documented as of this encounter Care Teams Honey Grader And Blender Relationship Specialty Start Date End Date Arin Nowak FNP [address] [place] [address] PCP - General Family Medicine 01/09/20 04/10/23 Verónica Crews FNP [facility] [address] [place] [address] PCP - General Family Medicine 05/08/23 documented as of this encounter
--- OUTSIDE RECORDS SUMMARY | 2024-10-04 23:52 | XMS_ITS | Encounter Summary ---
Author Organization [facility] Address [address] [address] Care Team Providers Care Gold Stamper Name Role Phone Jaswinder Duran Primary Care Provider [phone] Encounter Details Date Type Department Care Team (Late st Contact Info) Description 05/12/2000 Outpatient [place] [address] [place] [id number] Myalgia and myositis, unspecified (Primary Dx); Backache, unspecified Social History Tobacco Use Types Packs/Day Years Used Date Smoking Tobacco: Never Assessed Comments Unknown Sex and Gender Information Value Date Recorded Sex Assigned at Not on file Legal Sex Female 5:09 AM 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
--- OUTSIDE RECORDS SUMMARY | 2024-10-04 23:52 | XMS_ITS | Encounter Summary ---
Author Organization [facility] Address [address] [place] [address] Care Team Providers Care Retail Associate Manager Bilingual Name Role Phone Jaswinder Duran Primary Care Provider [phone] Encounter Details Date Type Department Care Team (Latest Contact Info) Description 11/19/2004 Outpatient Historical [address] [place] [phone] [place] [address] [place] [phone] DYSTHYMIC DISORDER (Primary Dx); ALCOH DEP NEC/NOS-UNSPEC ([facility] Social History Tobacco Use Types Packs/Day Years Used Date Smoking Tobacco: Never Assessed Comments Unknown Sex and Gender Information Value Date Recorded Sex Assigned at Not on file Legal Sex Female 5:09 AM TRUST [employer] ESTATES PARALEGAL Gender Identity Not on file Sexual Orientation Not on file documented as of this encounter Plan of Treatment Not on file documented as of this encounter Visit Diagnoses Diagnosis Dysthymic disorder- Primary Other and unspecified alcohol dependence, unspecified drinking behavior (CMS/HCC) Other and unspecified alcohol dependence, unspecified drinking behavior documented in this encounter Care Teams Retail Associate Manager Bilingual Relationship Specialty Start Date End Date Jaswinder Duran PA [address] [place] [phone] PCP - General 05/06/15 documented as of this encounter
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
--- OUTSIDE RECORDS SUMMARY | 2024-10-04 23:52 | XMS_ITS | Encounter Summary ---
Author Organization [facility] Address [address] [place] [address] Care Team Providers Care Manager Home Improvement Name Role Phone Jaswinder Duran Primary Care Provider [phone] Encounter Details Date Type Department Care Team (Latest Contact Info) Description 10/29/2001 Outpatient Historical [address] [address] Dottie Yusuf MD [address] [place] [address] HEADACHE (Primary Dx); ANXIETY STATE NOS; NEUROTIC DEPRESSION; SPASM OF MUSCLE Social History Tobacco Use Types Packs/Day Years Used Date Smoking Tobacco: Never Assessed Comments Unknown Sex and Gender Information Value Date Recorded Sex Assigned at Not on file Legal Sex Female 5:09 AM BLENDER SNUFF Gender Identity Not on file Sexual Orientation Not on file documented as of this encounter Plan of Treatment Not on file documented as of this encounter Visit Diagnoses Diagnosis Headache(784.0)- Primary Headache Anxiety state, unspecified Dysthymic disorder Spasm of muscle documented in this encounter Care Teams Manager Home Improvement Relationship Specialty Start Date End Date Jaswinder Duran PA [address] [place] [phone] PCP - General 05/06/15 documented as of this encounter
--- OUTSIDE RECORDS SUMMARY | 2024-10-04 23:52 | XMS_ITS | Encounter Summary ---
Author Organization [facility] Address [address] [place] [address] Care Team Providers Care Income Tax Expert Name Role Phone Jaswinder Duran Primary Care Provider [phone] Encounter Details Date Type Department Care Team (Late st Contact Info) Description 08/06/2001 Outpatient Historical [facility] General and Trauma Surgery[address] [place] [address] Jaime Scales MD 2000 [facility] [address] [place] [phone] CONTUSION OF CHEST WALL (Primary Dx) Social History Tobacco Use Types Packs/Day Years Used Date Smoking Tobacco: Never Assessed Comments Unknown Sex and Gender Information Value Date Recorded Sex Assigned at Not on file Legal Sex Female 5:09 AM HORSE SHOER Gender Identity Not on file Sexual Orientation Not on file documented as of this encounter Plan of Treatment Not on file documented as of this encounter Visit Diagnoses Diagnosis Contusion of chest wall- Primary documented in this encounter Care Teams Income Tax Expert Relationship Specialty Start Date End Date Jaswinder Duran PA [address] [place] [phone] PCP - General 05/06/15 documented as of this encounter
--- OUTSIDE RECORDS SUMMARY | 2024-10-04 23:52 | XMS_ITS | Encounter Summary ---
Author Organization [facility] Address [address] [place] [address] Care Team Providers Care Newcomer Hostess Name Role Phone Unavailable Primary Care Provider Unavailabl e Encounter Details Date Type Department Care Team (Late st Contact Info) Description 10/01/2024 External Device Data ST[place] ABSTRACTION Provider, Abstract NO ADDRESS ON FILE Social History Tobacco Use Types Packs/Day Years Used Date Smoking Tobacco: Some Days Cigarettes Last attempted to quit: 10/14/2013 Smokeless Tobacco: Never Comments:Quit smoking: Melly hamm smokes 5-6 cigarettes ppd - 12/05/19 Alcohol Use Standard Drinks/Week Comments No 0 (1 standard drink = 0.6 oz pur e alcohol) Comments Unknown Sex and Gender Information Value Date Recorded Sex Assigned at Not on file Legal Sex Female 4:45 PM MANAGER UI Gender Identity Not on file Sexual Orientation Not on file documented as of this encounter Plan of Treatment Not on file documented as of this encounter Visit Diagnoses Not on filedocumented in this encounter
--- OUTSIDE RECORDS SUMMARY | 2024-10-04 23:52 | XMS_ITS | Encounter Summary ---
Author Organization [facility] Address [address] [address] Care Team Providers Care Correctional Officer Chief Name Role Phone Jaswinder Duran Primary Care Provider [phone] Encounter Details Date Type Department Care Team (Late st Contact Info) Description 05/16/2000 Outpatient [place] [address] [place] [phone] Myalgia and myositis, unspecified (Primary Dx); Cervicalgia Social History Tobacco Use Types Packs/Day Years Used Date Smoking Tobacco: Never Assessed Comments Unknown Sex and Gender Information Value Date Recorded Sex Assigned at Not on file Legal Sex Female 5:09 AM CLINICAL EDUCATION MANAGER Gender Identity Not on file Sexual Orientation Not on file documented as of this encounter Plan of Treatment Not on file documented as of this encounter Visit Diagnoses Diagnosis Myalgia and myositis, unspecified- Primary Mylagia and myositis, unspecified Cervicalgia documented in this encounter Care Teams Correctional Officer Chief Relationship Specialty Start Date End Date Jaswinder Duran PA [address] [place] [phone] PCP - General 05/06/15 documented as of this encounter
--- OUTSIDE RECORDS SUMMARY | 2024-10-04 23:52 | XMS_ITS | Encounter Summary ---
Author Organization [facility] Address [address] [facility] [address] Care Team Providers Care Laboratory Engineer Name Role Phone Jaswinder Duran Primary Care Provider [phone] Encounter Details Date Type Department Care Team (Late st Contact Info) Description 05/18/2000 Outpatient Historical [facility] Twiggs [address] [place] [phone] Social History Tobacco Use Types Packs/Day Years Used Date Smoking Tobacco: Never Assessed Comments Unknown Sex and Gender Information Value Date Recorded Sex Assigned at Not on file Legal Sex Female 5:09 AM VALET SERVICE ATTENDANT Gender Identity Not on file Sexual Orientation Not on file documented as of this encounter Plan of Treatment Not on file documented as of this encounter Visit Diagnoses Not on filedocumented in this encounter Care Teams Laboratory Engineer Relationship Specialty Start Date End Date Jaswinder Duran PA [address] [place] [phone] PCP - General 05/06/15 documented as of this encounter
--- OUTSIDE RECORDS SUMMARY | 2024-10-04 23:52 | XMS_ITS | Encounter Summary ---
Author Organization [facility] Address [address] [place] [address] Care Team Providers Care Education Spec Name Role Phone Jaswinder Duran Primary Care Provider [phone] Encounter Details Date Type Department Care Team (Late st Contact Info) Description 04/24/2002 Outpatient Historical [facility] General and Trauma Surgery[address] [place] [phone] Jaime Scales MD [address] [phone] PAINFUL RESPIRATION (Primary Dx); BACKACHE NOS; HEADACHE Social History Tobacco Use Types Packs/Day Years Used Date Smoking Tobacco: Never Assessed Comments Unknown Sex and Gender Information Value Date Recorded Sex Assigned at Not on file Legal Sex Female 5:09 AM BIOCHEMICAL ENGINEER Gender Identity Not on file Sexual Orientation Not on file documented as of this encounter Plan of Treatment Not on file documented as of this encounter Visit Diagnoses Diagnosis Painful respiration- Primary Backache, unspecified Headache(784.0) Headache documented in this encounter Care Teams Education Spec Relationship Specialty Start Date End Date Jaswinder Duran PA [facility] [address] [phone] PCP - General 05/06/15 documented as of this encounter
--- OUTSIDE RECORDS SUMMARY | 2024-10-04 23:53 | XMS_ITS | Encounter Summary ---
Author Organization [facility] Address [address] [place] [address] Care Team Providers Care Rate Supervisor Name Role Phone Jaswinder Duran Primary Care Provider [phone] Encounter Details Date Type Department Care Team (Late st Contact Info) Description 05/24/2006 Outpatient Historical [facility] [address] [place] [phone] Social History Tobacco Use Types Packs/Day Years Used Date Smoking Tobacco: Never Assessed Comments Unknown Sex and Gender Information Value Date Recorded Sex Assigned at Not on file Legal Sex Female 5:09 AM MOTORCYCLE BUILDER Gender Identity Not on file Sexual Orientation Not on file documented as of this encounter Plan of Treatment Not on file documented as of this encounter Visit Diagnoses Not on filedocumented in this encounter Care Teams Rate Supervisor Relationship Specialty Start Date End Date Jaswinder Duran PA [address] [place] [phone] PCP - General 05/06/15 documented as of this encounter
--- OUTSIDE RECORDS SUMMARY | 2024-10-04 23:53 | XMS_ITS | Encounter Summary ---
Author Organization [facility] Address [address] [place] [address] Care Team Providers Care Retail Banker Name Role Phone Jaswinder Duran Primary Care Provider [phone] Encounter Details Date Type Department Care Team (Latest Contact Info) Description 12/13/2004 Outpatient Historical [facility] [address] [place] [phone] Everton Castellon DO NO ADDRESS ON FILE IRRITABLE COLON (Primary Dx) Social History Tobacco Use Types Packs/Day Years Used Date Smoking Tobacco: Never Assessed Comments Unknown Sex and Gender Information Value Date Recorded Sex Assigned at Not on file Legal Sex Female 5:09 AM RESPIRATORY SCIENTIST Gender Identity Not on file Sexual Orientation Not on file documented as of this encounter Plan of Treatment Not on file documented as of this encounter Visit Diagnoses Diagnosis Irritable bowel syndrome- Primary documented in this encounter Care Teams Retail Banker Relationship Specialty Start Date End Date Jaswinder Duran PA [address] [place] [phone] PCP - General 05/06/15 documented as of this encounter
--- OUTSIDE RECORDS SUMMARY | 2024-10-04 23:53 | XMS_ITS | Encounter Summary ---
Author Organization [facility] Address [address] [place] [address] Care Team Providers Care Wrapping Checker Name Role Phone Jaswinder Duran Primary Care Provider [phone] Encounter Details Date Type Department Care Team (Late st Contact Info) Description 07/11/2006 Outpatient Historical [facility] [address] [place] [phone] Social History Tobacco Use Types Packs/Day Years Used Date Smoking Tobacco: Never Assessed Comments Unknown Sex and Gender Information Value Date Recorded Sex Assigned at Not on file Legal Sex Female 5:09 AM EPIC [employer] Gender Identity Not on file Sexual Orientation Not on file documented as of this encounter Plan of Treatment Not on file documented as of this encounter Visit Diagnoses Not on filedocumented in this encounter Care Teams Wrapping Checker Relationship Specialty Start Date End Date Jaswinder Duran PA [address] [place] [phone] PCP - General 05/06/15 documented as of this encounter
--- OUTSIDE RECORDS SUMMARY | 2024-10-04 23:53 | XMS_ITS | Encounter Summary ---
Author Organization [facility] Address [address] [place] [address] Care Team Providers Care Vice President Of Contracts Name Role Phone Jaswinder Duran Primary Care Provider [phone] Encounter Details Date Type Department Care Team (Latest Contact Info) Description 05/22/2006 Outpatient Historical [facility]MISS[facility] Alberto Marion MD [address] [address] Encounters for Unspecified Administrative Purpose (Primary Dx) Social History Tobacco Use Types Packs/Day Years Used Date Smoking Tobacco: Never Assessed Comments Unknown Sex and Gender Information Value Date Recorded Sex Assigned at Not on file Legal Sex Female 5:09 AM M1A1 TANK CREWMAN Gender Identity Not on file Sexual Orientation Not on file documented as of this encounter Plan of Treatment Not on file documented as of this encounter Visit Diagnoses Diagnosis Encounters for unspecified administrative purpose- Primary documented in this encounter Care Teams Vice President Of Contracts Relationship Specialty Start Date End Date Jaswinder Duran PA [address] [place] [phone] PCP - General 05/06/15 documented as of this encounter
--- OUTSIDE RECORDS SUMMARY | 2024-10-04 23:53 | XMS_ITS | Encounter Summary ---
Author Organization [facility] Address [address] [place] [address] Care Team Providers Care Clinical Implementation Specialist Name Role Phone Jaswinder Duran Primary Care Provider [phone] Encounter Details Date Type Department Care Team (Latest Contact Info) Description 05/09/2006 Outpatient Historical [facility] [address] [place] [phone] Remy Wray Thoracic or Lumbosacral Neuritis or Radiculitis, Unspecified (Primary Dx); Disorders of Sacrum; Pain in Thoracic Spine Social History Tobacco Use Types Packs/Day Years Used Date Smoking Tobacco: Never Assessed Comments Unknown Sex and Gender Information Value Date Recorded Sex Assigned at Not on file Legal Sex Female 5:09 AM BINDER ROLLER Gender Identity Not on file Sexual Orientation Not on file documented as of this encounter Plan of Treatment Not on file documented as of this encounter Visit Diagnoses Diagnosis Thoracic or lumbosacral neuritis or radiculitis, unspecified- Primary Disorders of sacrum Pain in thoracic spine documented in this encounter Care Teams Clinical Implementation Specialist Relationship Specialty Start Date End Date Jaswinder Duran PA [address] [place] [phone] PCP - General 05/06/15 documented as of this encounter
--- OUTSIDE RECORDS SUMMARY | 2024-10-04 23:53 | XMS_ITS | Encounter Summary ---
Author Organization [facility] Address [address] [place] [address] Care Team Providers Care Integrated Marketing Manager Name Role Phone Jaswinder Duran Primary Care Provider [phone] Encounter Details Date Type Department Care Team (Late st Contact Info) Description 05/04/2006 Outpatient Historical [facility] [address] [place] [phone] [place] [address] [facility] [address] [place] [address] Disorders of Sacrum (Primary Dx); Thoracic Spondylosis; Lumbosacral Spondylosis Social History Tobacco Use Types Packs/Day Years Used Date Smoking Tobacco: Never Assessed Comments Unknown Sex and Gender Information Value Date Recorded Sex Assigned at Not on file Legal Sex Female 5:09 AM DEATH CLAIM EXAMINER Gender Identity Not on file Sexual Orientation Not on file documented as of this encounter Plan of Treatment Not on file documented as of this encounter Visit Diagnoses Diagnosis Disorders of sacrum- Primary Thoracic spondylosis Thoracic spondylosis without myelopathy Lumbosacral spondylosis Lumbosacral spondylosis without myelopathy documented in this encounter Care Teams Integrated Marketing Manager Relationship Specialty Start Date End Date Jaswinder Duran PA [address] [place] [phone] PCP - General 05/06/15 documented as of this encounter
--- OUTSIDE RECORDS SUMMARY | 2024-10-04 23:53 | XMS_ITS | Encounter Summary ---
Author Organization [facility] Address [address] [place] [place] [address] Care Team Providers Care Multiple Cut Off Saw Operator Name Role Phone Jaswinder Duran Primary Care Provider [phone] Encounter Details Date Type Department Care Team (Late st Contact Info) Description 07/11/2006 Outpatient Historical [facility] [address] [place] [phone] Social History Tobacco Use Types Packs/Day Years Used Date Smoking Tobacco: Never Assessed Comments Unknown Sex and Gender Information Value Date Recorded Sex Assigned at Not on file Legal Sex Female 5:09 AM EMERGENCY PREPAREDNESS COORDINATOR Gender Identity Not on file Sexual Orientation Not on file documented as of this encounter Plan of Treatment Not on file documented as of this encounter Visit Diagnoses Not on filedocumented in this encounter Care Teams Multiple Cut Off Saw Operator Relationship Specialty Start Date End Date Jaswinder Duran PA [address] [place] [phone] PCP - General 05/06/15 documented as of this encounter
--- OUTSIDE RECORDS SUMMARY | 2024-10-04 23:53 | XMS_ITS | Encounter Summary ---
Author Organization [facility] Address [address] [place] [address] Care Team Providers Care Patternmaker Helper Name Role Phone Jaswinder Duran Primary Care Provider [phone] Encounter Details Date Type Department Care Team (Latest Contact Info) Description 04/19/2005 Outpatient Historical [facility] General Surgery [address] [place] [address] Inez Napoles MD [address] [place] [address] [place] [phone] ABDOMINAL PAIN UNSPEC SITE (Primary Dx) Social History Tobacco Use Types Packs/Day Years Used Date Smoking Tobacco: Never Assessed Comments Unknown Sex and Gender Information Value Date Recorded Sex Assigned at Not on file Legal Sex Female 5:09 AM CEMENTER Gender Identity Not on file Sexual Orientation Not on file documented as of this encounter Plan of Treatment Not on file documented as of this encounter Procedures Procedure Name Priority Date/Time Associated Diagnosis Comments PTT Routine 04/19/2005 10:05 AM CEMENTER LACTATE DEHYDROGENASE Routine 04/19/2005 10:05 AM CEMENTER documented in this encounter Results * PTT (04/19/2005 10:05 AM CEMENTER) PTT 25.8 21.5 - 34.4 Secs INTERFACE SYSTEM Comment: Therapeutic Range: Hi-level PE/DVT heparin protocol 90.1 -110 sec Lo-level PE/DVT heparin protocol 75.1 - 95 sec Cardiac Heparin Protocol 85.1 - 100 sec Neuro Heparin Protocol 70.1 - 85 sec As of 03/30/05 note change in APTT Normal Range. 04/19/2005 10:0 5 AM CEMENTER Historical Provider HEMATOLOGY ORDERABLES Final Result Performing Organization Address [facility] Phone Number INTERFACE SYSTEM Refer to clinic/hospital department * LACTATE DEHYDROGENASE (04/19/2005 10:05 AM CEMENTER) LD (LACTATE DEHYDROGENASE) 509 250 - 540 IU/L INTERFACE SYSTEM 04/19/2005 10:0 5 AM CEMENTER Historical Provider CHEMISTRY ORDERABLES Final R esult Performing Organization Address [facility] Phone Number INTERFACE SYSTEM Refer to clinic/hospital department documented in this encounter Visit Diagnoses Diagnosis Abdominal pain, unspecified site- Primary documented in this encounter Care Teams Patternmaker Helper Relationship Specialty Start Date End Date Jaswinder Duran PA [address] [place] [phone] PCP - General 05/06/15 documented as of this encounter
--- OUTSIDE RECORDS SUMMARY | 2024-10-04 23:53 | XMS_ITS | Encounter Summary ---
Author Organization [facility] Address [address] [place] [address] Care Team Providers Care Crop Farm Workers Name Role Phone Jaswinder Duran Primary Care Provider [phone] Encounter Details Date Type Department Care Team (Latest Contact Info) Description 12/15/2004 Outpatient Historical [facility] Imaging [address] [place] [address], [address] [place] [address] Don Kee DO NO ADDRESS ON FILE ABDOMINAL PAIN UNSPEC SITE (Primary Dx); FLATUL/ERUCTAT/GAS PAIN; PERS HX OF ALCOHOLISM (CMS/[facility]) Social History Tobacco Use Types Packs/Day Years Used Date Smoking Tobacco: Never Assessed Comments Unknown Sex and Gender Information Value Date Recorded Sex Assigned at Not on file Legal Sex Female 5:09 AM CLOTH WINDING SUPERVISOR Gender Identity Not on file Sexual Orientation Not on file documented as of this encounter Plan of Treatment Not on file documented as of this encounter Visit Diagnoses Diagnosis Abdominal pain, unspecified site- Primary Flatulence, eructation, and gas pain Personal history of alcoholism (CMS/HCC) Personal history of alcoholism documented in this encounter Care Teams Crop Farm Workers Relationship Specialty Start Date End Date Jaswinder Duran PA [address] [place] [phone] PCP - General 05/06/15 documented as of this encounter
--- OUTSIDE RECORDS SUMMARY | 2024-10-04 23:53 | XMS_ITS | Encounter Summary ---
Author Organization [facility] Address [address] [place] [address] Care Team Providers Care Car Varnisher Name Role Phone Jaswinder Duran Primary Care Provider [phone] Encounter Details Date Type Department Care Team (Latest Contact Info) Description 08/08/2005 Outpatient Historical [facility] [address] [place] [phone] Everton Castellon DO NO ADDRESS ON FILE Routine Gynecological Examination (Primary Dx) Social History Tobacco Use Types Packs/Day Years Used Date Smoking Tobacco: Never Assessed Comments Unknown Sex and Gender Information Value Date Recorded Sex Assigned at Not on file Legal Sex Female 5:09 AM RADIO ELECTRONICS TECHNICIAN Gender Identity Not on file Sexual Orientation Not on file documented as of this encounter Plan of Treatment Not on file documented as of this encounter Visit Diagnoses Diagnosis Routine gynecological examination- Primary documented in this encounter Care Teams Car Varnisher Relationship Specialty Start Date End Date Jaswinder Duran PA [address] [place] [phone] PCP - General 05/06/15 documented as of this encounter
--- OUTSIDE RECORDS SUMMARY | 2024-10-04 23:53 | XMS_ITS | Encounter Summary ---
Author Organization [facility] Address [address] [place] [address] Care Team Providers Care Manager It Training Name Role Phone Jaswinder Duran Primary Care Provider [phone] Encounter Details Date Type Department Care Team (Latest Contact Info) Description 07/11/2006 Outpatient Historical [facility] Chronic Pain [address] [place] [address] Remy Wray Thoracic or Lumbosacral Neuritis or Radiculitis, Unspecified (Primary Dx) Social History Tobacco Use Types Packs/Day Years Used Date Smoking Tobacco: Never Assessed Comments Unknown Sex and Gender Information Value Date Recorded Sex Assigned at Not on file Legal Sex Female 5:09 AM HYDRATOR OPERATOR Gender Identity Not on file Sexual Orientation Not on file documented as of this encounter Plan of Treatment Not on file documented as of this encounter Visit Diagnoses Diagnosis Thoracic or lumbosacral neuritis or radiculitis, unspecified- Primary documented in this encounter Care Teams Manager It Training Relationship Specialty Start Date End Date Jaswinder Duran PA [address] [place] [phone] PCP - General 05/06/15 documented as of this encounter
--- OUTSIDE RECORDS SUMMARY | 2024-10-04 23:53 | XMS_ITS | Encounter Summary ---
Author Organization [facility] Address [address] [place] [address] Care Team Providers Care Foreign Language Professor Name Role Phone Jaswinder Duran Primary Care Provider [phone] Encounter Details Date Type Department Care Team (Latest Contact Info) Description 12/15/2006 Outpatient Historical [facility] FLASH DESIGNER [address] [place] [phone] Arie Garcia MD [address] [place] [phone] Other and Unspecified Ovarian Cyst (Primary Dx) Social History Tobacco Use Types Packs/Day Years Used Date Smoking Tobacco: Never Assessed Comments Unknown Sex and Gender Information Value Date Recorded Sex Assigned at Not on file Legal Sex Female 5:09 AM POWER LINE INSTALLER Gender Identity Not on file Sexual Orientation Not on file documented as of this encounter Plan of Treatment Not on file documented as of this encounter Visit Diagnoses Diagnosis Other and unspecified ovarian cyst- Primary documented in this encounter Care Teams Foreign Language Professor Relationship Specialty Start Date End Date Jaswinder Duran PA [facility] [address] [phone] PCP - General 05/06/15 documented as of this encounter
--- OUTSIDE RECORDS SUMMARY | 2024-10-04 23:53 | XMS_ITS | Encounter Summary ---
Author Organization [facility] Address [address] [place] [address] Care Team Providers Care Mold Filler Plastic Dolls Name Role Phone Jaswinder Duran Primary Care Provider [phone] Encounter Details Date Type Department Care Team (Latest Contact Info) Description 06/07/2006 Outpatient Historical [facility] Pain Management Procedures [address] [place] [phone] Remy Wray Thoracic or Lumbosacral Neuritis or Radiculitis, Unspecified (Primary Dx) Social History Tobacco Use Types Packs/Day Years Used Date Smoking Tobacco: Never Assessed Comments Unknown Sex and Gender Information Value Date Recorded Sex Assigned at Not on file Legal Sex Female 5:09 AM YARN CARRIER Gender Identity Not on file Sexual Orientation Not on file documented as of this encounter Plan of Treatment Not on file documented as of this encounter Visit Diagnoses Diagnosis Thoracic or lumbosacral neuritis or radiculitis, unspecified- Primary documented in this encounter Care Teams Mold Filler Plastic Dolls Relationship Specialty Start Date End Date Jaswinder Duran PA [address] [place] [phone] PCP - General 05/06/15 documented as of this encounter
--- OUTSIDE RECORDS SUMMARY | 2024-10-04 23:53 | XMS_ITS | Encounter Summary ---
Author Organization [facility] Address [address] [place] [address] Care Team Providers Care Application Security Architect Name Role Phone Jaswinder Duran Primary Care Provider Encounter Details Date Type Department Care Team (Latest Contact Info) Description 10/13/2006 Outpatient Historical [facility] [address] [place] [phone] Everton Castellon DO NO ADDRESS ON FILE Routine Gynecological Examination (Primary Dx) Social History Tobacco Use Types Packs/Day Years Used Date Smoking Tobacco: Never Assessed Comments Unknown Sex and Gender Information Value Date Recorded Sex Assigned at Not on file Legal Sex Female 5:09 AM HOSPITAL FELLOW Gender Identity Not on file Sexual Orientation Not on file documented as of this encounter Plan of Treatment Not on file documented as of this encounter Visit Diagnoses Diagnosis Routine gynecological examination- Primary documented in this encounter Care Teams Application Security Architect Relationship Specialty Start Date End Date Jaswinder Duran PA [address] [place] [phone] PCP - General 05/06/15 documented as of this encounter
--- OUTSIDE RECORDS SUMMARY | 2024-10-04 23:53 | XMS_ITS | Encounter Summary ---
Author Organization [facility] Address [address] [place] [address] Care Team Providers Care Wrapper Selector Name Role Phone Jaswinder Duran Primary Care Provider [phone] Encounter Details Date Type Department Care Team (Latest Contact Info) Description 12/15/2006 Outpatient Historical [facility] CASING SOAKER [address] [place] [phone] Arie Garcia MD [address] [place] [address] Other and Unspecified Ovarian Cyst (Primary Dx) Social History Tobacco Use Types Packs/Day Years Used Date Smoking Tobacco: Never Assessed Comments Unknown Sex and Gender Information Value Date Recorded Sex Assigned at Not on file Legal Sex Female 5:09 AM DIRECTOR OF ENGINEERING Gender Identity Not on file Sexual Orientation Not on file documented as of this encounter Plan of Treatment Not on file documented as of this encounter Procedures Procedure Name Priority Date/Time Associated Diagnosis Comments ALPHA FETOPROTEIN TUMOR MARKER Routine 12/15/2006 11:29 AM CDT documented in this encounter Results * ALPHA FETOPROTEIN TUMOR MARKER (12/15/2006 11:29 AM CDT) ALPHA FETOPROTEIN MATERNAL 2.5 <=8.5 ng/mL INTERFACE SYSTEM 12/15/2006 11:2 9 AM CDT us Arie Garcia MD CHEMISTRY ORDERABLES Edited INTERFACE SYSTEM Refer to clinic/hospital department documented in this encounter Visit Diagnoses Diagnosis Other and unspecified ovarian cyst- Primary documented in this encounter Care Teams Wrapper Selector Relationship Specialty Start Date End Date Jaswinder Duran PA [address] [place] [phone] PCP - General 05/06/15 documented as of this encounter
--- OUTSIDE RECORDS SUMMARY | 2024-10-04 23:53 | XMS_ITS | Encounter Summary ---
Author Organization [facility] Address [address] [place] [address] Care Team Providers Care Tie Binder Name Role Phone Jaswinder Duran Primary Care Provider [phone] Encounter Details Date Type Department Care Team (Latest Contact Info) Description 07/11/[address] [facility] [address] [phone] Vicki Mcdonough PA NO ADDRESS ON FILE Lumbago (Primary Dx) Social History Tobacco Use Types Packs/Day Years Used Date Smoking Tobacco: Never Assessed Comments Unknown Sex and Gender Information Value Date Recorded Sex Assigned at Not on file Legal Sex Female 5:09 AM MEAT PRESS OPERATOR Gender Identity Not on file Sexual Orientation Not on file documented as of this encounter Plan of Treatment Not on file documented as of this encounter Visit Diagnoses Diagnosis Lumbago- Primary documented in this encounter Care Teams Tie Binder Relationship Specialty Start Date End Date Jaswinder Duran PA [address] [place] [phone] PCP - General 05/06/15 documented as of this encounter
--- OUTSIDE RECORDS SUMMARY | 2024-10-04 23:53 | XMS_ITS | Encounter Summary ---
Author Organization [facility] Address [address] [facility] [address] Care Team Providers Care Instructional Writer Name Role Phone Jaswinder Duran Primary Care Provider [phone] Encounter Details Date Type Department Care Team (Late st Contact Info) Description 05/16/2006 Outpatient Historical [facility] Pain Management Procedures [address] [place] [phone] Remy Wray Social History Tobacco Use Types Packs/Day Years Used Date Smoking Tobacco: Never Assessed Comments Unknown Sex and Gender Information Value Date Recorded Sex Assigned at Not on file Legal Sex Female 5:09 AM MANUFACTURING ASSEMBLER Gender Identity Not on file Sexual Orientation Not on file documented as of this encounter Plan of Treatment Not on file documented as of this encounter Visit Diagnoses Not on filedocumented in this encounter Care Teams Instructional Writer Relationship Specialty Start Date End Date Jaswinder Duran PA [address] [place] [phone] PCP - General 05/06/15 documented as of this encounter
--- OUTSIDE RECORDS SUMMARY | 2024-10-04 23:53 | XMS_ITS | Encounter Summary ---
Author Organization [facility] Address [address] [place] [address] Care Team Providers Care Project Reservoir Engineer Name Role Phone Jaswinder Duran Primary Care Provider [phone] Encounter Details Date Type Department Care Team (Latest Contact Info) Description 05/06/2005 Outpatient Historical [facility] [address] [place] [phone] Everton Castellon DO NO ADDRESS ON FILE OVARIAN CYST NEC/NOS (Primary Dx) Social History Tobacco Use Types Packs/Day Years Used Date Smoking Tobacco: Never Assessed Comments Unknown Sex and Gender Information Value Date Recorded Sex Assigned at Not on file Legal Sex Female 5:09 AM OFFAL ROLLER Gender Identity Not on file Sexual Orientation Not on file documented as of this encounter Plan of Treatment Not on file documented as of this encounter Visit Diagnoses Diagnosis Other and unspecified ovarian cyst- Primary documented in this encounter Care Teams Project Reservoir Engineer Relationship Specialty Start Date End Date Jaswinder Duran PA [address] [place] [phone] PCP - General 05/06/15 documented as of this encounter
--- OUTSIDE RECORDS SUMMARY | 2024-10-04 23:53 | XMS_ITS | Encounter Summary ---
Author Organization [facility] Address [address] [place] [address] Care Team Providers Care Children'S Aide Name Role Phone Jaswinder Duran Primary Care Provider [phone] Encounter Details Date Type Department Care Team (Latest Contact Info) Description 08/08/2005 Outpatient Historical [facility] [address] [place] [phone] Everton Castellon DO NO ADDRESS ON FILE Routine Gynecological Examination (Primary Dx) Social History Tobacco Use Types Packs/Day Years Used Date Smoking Tobacco: Never Assessed Comments Unknown Sex and Gender Information Value Date Recorded Sex Assigned at Not on file Legal Sex Female 5:09 AM AMMONIA SOLUTION PREPARER Gender Identity Not on file Sexual Orientation Not on file documented as of this encounter Plan of Treatment Not on file documented as of this encounter Visit Diagnoses Diagnosis Routine gynecological examination- Primary documented in this encounter Care Teams Children'S Aide Relationship Specialty Start Date End Date Jaswinder Duran PA [address] [place] [phone] PCP - General 05/06/15 documented as of this encounter
--- OUTSIDE RECORDS SUMMARY | 2024-10-04 23:53 | XMS_ITS | Encounter Summary ---
Author Organization [facility] Address [address] [place] [address] Care Team Providers Care Family Psychologist Name Role Phone Jaswinder Duran Primary Care Provider [phone] Encounter Details Date Type Department Care Team (Latest Contact Info) Description 03/16/2005 Outpatient Historical [facility] INVESTIGATIONS CHIEF [address] [place] [address] Gildardo Matamoros MD [address] [facility] [address] [place] [address] DYSMENORRHEA (Primary Dx) Social History Tobacco Use Types Packs/Day Years Used Date Smoking Tobacco: Never Assessed Comments Unknown Sex and Gender Information Value Date Recorded Sex Assigned at Not on file Legal Sex Female 5:09 AM ONCOLOGY NURSE NAVIGATOR Gender Identity Not on file Sexual Orientation Not on file documented as of this encounter Plan of Treatment Not on file documented as of this encounter Visit Diagnoses Diagnosis Dysmenorrhea- Primary documented in this encounter Care Teams Family Psychologist Relationship Specialty Start Date End Date Jaswinder Duran PA [address] [place] [phone] PCP - General 05/06/15 documented as of this encounter
--- OUTSIDE RECORDS SUMMARY | 2024-10-04 23:53 | XMS_ITS | Encounter Summary ---
Author Organization [facility] Address [address] [place] [address] Care Team Providers Care Teller Manager Name Role Phone Jaswinder Duran Primary Care Provider [phone] Encounter Details Date Type Department Care Team (Latest Contact Info) Description 05/23/2006 Outpatient Historical [facility] Pain Management Procedures [address] [place] [phone] Remy Wray Thoracic or Lumbosacral Neuritis or Radiculitis, Unspecified (Primary Dx) Social History Tobacco Use Types Packs/Day Years Used Date Smoking Tobacco: Never Assessed Comments Unknown Sex and Gender Information Value Date Recorded Sex Assigned at Not on file Legal Sex Female 5:09 AM PATIENT MANAGER Gender Identity Not on file Sexual Orientation Not on file documented as of this encounter Plan of Treatment Not on file documented as of this encounter Visit Diagnoses Diagnosis Thoracic or lumbosacral neuritis or radiculitis, unspecified- Primary documented in this encounter Care Teams Teller Manager Relationship Specialty Start Date End Date Jaswinder Duran PA [address] [place] [phone] PCP - General 05/06/15 documented as of this encounter
--- OUTSIDE RECORDS SUMMARY | 2024-10-04 23:53 | XMS_ITS | Encounter Summary ---
Author Organization [facility] Address [address] [address] Care Team Providers Care Bankruptcy Law Specialist Name Role Phone Jaswinder Duran Primary Care Provider [phone] Encounter Details Date Type Department Care Team (Latest Contact Info) Description 12/13/2006 Outpatient Historical [facility] [address] [place] [address], [address] [place] [address] Don Kee DO NO ADDRESS ON FILE Abdominal or Pelvic Swelling, Mass or Lump, Unspecified Site (Primary Dx) Social History Tobacco Use Types Packs/Day Years Used Date Smoking Tobacco: Never Assessed Comments Unknown Sex and Gender Information Value Date Recorded Sex Assigned at Not on file Legal Sex Female 5:09 AM HEALTH CENTER ASSOCIATE Gender Identity Not on file Sexual Orientation Not on file documented as of this encounter Plan of Treatment Not on file documented as of this encounter Visit Diagnoses Diagnosis Abdominal or pelvic swelling, mass or lump, unspecified site- Primary documented in this encounter Care Teams Bankruptcy Law Specialist Relationship Specialty Start Date End Date Jaswinder Duran PA [address] [place] [phone] PCP - General 05/06/15 documented as of this encounter
--- OUTSIDE RECORDS SUMMARY | 2024-10-04 23:53 | XMS_ITS | Encounter Summary ---
Author Organization [facility] Address [address] [place] [address] Care Team Providers Care Floor Care Specialist Name Role Phone Jaswinder Duran Primary Care Provider [phone] Encounter Details Date Type Department Care Team (Latest Contact Info) Description 06/05/2006 Outpatient Historical [facility] Sp[facility] [address] [place] [phone] Kurtis Francois MD [address] [address] Thoracic or Lumbosacral Neuritis or Radiculitis, Unspecified (Primary Dx) Social History Tobacco Use Types Packs/Day Years Used Date Smoking Tobacco: Never Assessed Comments Unknown Sex and Gender Information Value Date Recorded Sex Assigned at Not on file Legal Sex Female 5:09 AM TELEMETRY NURSE Gender Identity Not on file Sexual Orientation Not on file documented as of this encounter Plan of Treatment Not on file documented as of this encounter Visit Diagnoses Diagnosis Thoracic or lumbosacral neuritis or radiculitis, unspecified- Primary documented in this encounter Care Teams Floor Care Specialist Relationship Specialty Start Date End Date Jaswinder Duran PA [address] [place] [phone] PCP - General 05/06/15 documented as of this encounter
--- OUTSIDE RECORDS SUMMARY | 2024-10-04 23:53 | XMS_ITS | Encounter Summary ---
Author Organization [facility] Address [address] [place] [place] [address] Care Team Providers Care Mechanical Ordnance Assembler Name Role Phone Jaswinder Duran Primary Care Provider [phone] Encounter Details Date Type Department Care Team (Latest Contact Info) Description 04/19/2005 Outpatient Historical [facility] Surgery [address] [place] [address] Inez Napoles MD [address] [facility] [address] [place] [phone] ABN FIND-STOOL CONTENTS-OCC BLOOD (Primary Dx); ABDOMINAL PAIN UNSPEC SITE Social History Tobacco Use Types Packs/Day Years Used Date Smoking Tobacco: Never Assessed Comments Unknown Sex and Gender Information Value Date Recorded Sex Assigned at Not on file Legal Sex Female 5:09 AM PARKING ATTENDANT Gender Identity Not on file Sexual Orientation Not on file documented as of this encounter Plan of Treatment Not on file documented as of this encounter Visit Diagnoses Diagnosis Nonspecific abnormal finding in stool contents- Primary Abdominal pain, unspecified site documented in this encounter Care Teams Mechanical Ordnance Assembler Relationship Specialty Start Date End Date Jaswinder Duran PA [address] [place] [phone] PCP - General 05/06/15 documented as of this encounter
--- OUTSIDE RECORDS SUMMARY | 2024-10-04 23:53 | XMS_ITS | Encounter Summary ---
Author Organization [facility] Address [address] [place] [address] Care Team Providers Care Lawn Mower Operator Name Role Phone Jaswinder Duran Primary Care Provider [phone] Encounter Details Date Type Department Care Team (Latest Contact Info) Description 10/13/2006 Outpatient Historical [facility] [address] [place] [phone] Everton Castellon DO NO ADDRESS ON FILE Routine Gynecological Examination (Primary Dx) Social History Tobacco Use Types Packs/Day Years Used Date Smoking Tobacco: Never Assessed Comments Unknown Sex and Gender Information Value Date Recorded Sex Assigned at Not on file Legal Sex Female 5:09 AM PRINTING MANAGER Gender Identity Not on file Sexual Orientation Not on file documented as of this encounter Plan of Treatment Not on file documented as of this encounter Visit Diagnoses Diagnosis Routine gynecological examination- Primary documented in this encounter Care Teams Lawn Mower Operator Relationship Specialty Start Date End Date Jaswinder Duran PA [address] [place] [address] [phone] PCP - General 05/06/15 documented as of this encounter
--- OUTSIDE RECORDS SUMMARY | 2024-10-04 23:53 | XMS_ITS | Encounter Summary ---
Author Organization [facility] Address [address] [facility] [place] [address] Care Team Providers Care Negotiations Director Name Role Phone Jaswinder Duran Primary Care Provider [phone] Encounter Details Date Type Department Care Team (Latest Contact Info) Description 05/09/2006 Outpatient Historical [facility] [address] [place] [address] Remy Wray Displacement of Lumbar Intervertebral Disc without Myelopathy (Primary Dx) Social History Tobacco Use Types Packs/Day Years Used Date Smoking Tobacco: Never Assessed Comments Unknown Sex and Gender Information Value Date Recorded Sex Assigned at Not on file Legal Sex Female 5:09 AM BREASTFEEDING EDUCATOR Gender Identity Not on file Sexual Orientation Not on file documented as of this encounter Plan of Treatment Not on file documented as of this encounter Visit Diagnoses Diagnosis Displacement of lumbar intervertebral disc without myelopathy- Primary documented in this encounter Care Teams Negotiations Director Relationship Specialty Start Date End Date Jaswinder Duran PA [address] [place] [address] [phone] PCP - General 05/06/15 documented as of this encounter
--- OUTSIDE RECORDS SUMMARY | 2024-10-04 23:53 | XMS_ITS | Encounter Summary ---
Author Organization [facility] Address [address] [address] Care Team Providers Care Manager Administration Name Role Phone Jaswinder Duran Primary Care Provider [phone] Encounter Details Date Type Department Care Team (Latest Contact Info) Description 05/23/2006 Outpatient Historical [facility] [address] [place] [phone] Remy Wray Thoracic or Lumbosacral Neuritis or Radiculitis, Unspecified (Primary Dx) Social History Tobacco Use Types Packs/Day Years Used Date Smoking Tobacco: Never Assessed Comments Unknown Sex and Gender Information Value Date Recorded Sex Assigned at Not on file Legal Sex Female 5:09 AM MEDICAL OFFICE ASSISTANT INSTRUCTOR Gender Identity Not on file Sexual Orientation Not on file documented as of this encounter Plan of Treatment Not on file documented as of this encounter Visit Diagnoses Diagnosis Thoracic or lumbosacral neuritis or radiculitis, unspecified- Primary documented in this encounter Care Teams Manager Administration Relationship Specialty Start Date End Date Jaswinder Duran PA [address] [place] [address] [phone] PCP - General 05/06/15 documented as of this encounter
--- OUTSIDE RECORDS SUMMARY | 2024-10-04 23:53 | XMS_ITS | Encounter Summary ---
Author Organization [facility] Address [address] [facility] [place] [address] Care Team Providers Care Gang Supervisor Pipe Lines Name Role Phone Jaswinder Duran Primary Care Provider [phone] Encounter Details Date Type Department Care Team (Latest Contact Info) Description 03/18/2005 Outpatient Historical [facility] BILINGUAL LEGAL ASSISTANT FY06 Gildardo Matamoros MD [address] [place] [address] [phone] SCANTY MENSTRUATION (Primary Dx) Social History Tobacco Use Types Packs/Day Years Used Date Smoking Tobacco: Never Assessed Comments Unknown Sex and Gender Information Value Date Recorded Sex Assigned at Not on file Legal Sex Female 5:09 AM DOWNSTAIRS MAID Gender Identity Not on file Sexual Orientation Not on file documented as of this encounter Plan of Treatment Not on file documented as of this encounter Procedures Procedure Name Priority Date/Time Associated Diagnosis Comments PROLACTIN Routine 03/18/2005 3:25 PM DOWNSTAIRS MAID documented in this encounter Results * PROLACTIN (03/18/2005 3:25 PM DOWNSTAIRS MAID) PROLACTIN 14.8 ng/mL INTERFACE SYSTEM Comment: As of 04 at 3:30 p.m. [facility] has changed the methodology for Prolactin, and with this change the reference range has changed for males and females from 1.0-24.0 ng/ml to interpretive data below. New Interpretive Data as of 08/10/04 3:30 p.m. Prolactin Expected Ranges: Non: 2.8-29.2 ng/ml : 9.7-208.5 ng/ml Post Menopausal females 1.8-20.3 ng/ml Males 2.1-17.7 ng/ml 03/18/2005 3:25 PM DOWNSTAIRS MAID us Historical Provider CHEMISTRY ORDERABLES Final R esult INTERFACE SYSTEM Refer to clinic/hospital department documented in this encounter Visit Diagnoses Diagnosis Scanty or infrequent menstruation- Primary documented in this encounter Care Teams Gang Supervisor Pipe Lines Relationship Specialty Start Date End Date Jaswinder Duran PA [address] [place] [address] [phone] PCP - General 05/06/15 documented as of this encounter
--- OUTSIDE RECORDS SUMMARY | 2024-10-04 23:53 | XMS_ITS | Encounter Summary ---
Author Organization [facility] Address [address] [place] [address] Care Team Providers Care Analytical Data Scientist Name Role Phone Jaswinder Duran Primary Care Provider Encounter Details Date Type Department Care Team (Latest Contact Info) Description 12/06/2006 Outpatient Historical [facility] [address] [place] [address], [address] [place] [address] Don Kee DO NO ADDRESS ON FILE Abdominal or Pelvic Swelling, Mass or Lump, Unspecified Site (Primary Dx) Social History Tobacco Use Types Packs/Day Years Used Date Smoking Tobacco: Never Assessed Comments Unknown Sex and Gender Information Value Date Recorded Sex Assigned at Not on file Legal Sex Female 5:09 AM SET UP AND LAY OUT INSPECTOR Gender Identity Not on file Sexual Orientation Not on file documented as of this encounter Plan of Treatment Not on file documented as of this encounter Visit Diagnoses Diagnosis Abdominal or pelvic swelling, mass or lump, unspecified site- Primary documented in this encounter Care Teams Analytical Data Scientist Relationship Specialty Start Date End Date Jaswinder Duran PA [address] [place] [address] [phone] PCP - General 05/06/15 documented as of this encounter
--- OUTSIDE RECORDS SUMMARY | 2024-10-04 23:53 | XMS_ITS | Encounter Summary ---
Author Organization [facility] Address [address] [place] [address] Care Team Providers Care Rn Lactation Name Role Phone Jaswinder Duran Primary Care Provider [phone] Encounter Details Date Type Department Care Team (Latest Contact Info) Description 06/07/2006 Outpatient Historical [facility] [address] [place] [phone] Remy Wray Thoracic or Lumbosacral Neuritis or Radiculitis, Unspecified (Primary Dx) Social History Tobacco Use Types Packs/Day Years Used Date Smoking Tobacco: Never Assessed Comments Unknown Sex and Gender Information Value Date Recorded Sex Assigned at Not on file Legal Sex Female 5:09 AM MICROBIOLOGY COORDINATOR Gender Identity Not on file Sexual Orientation Not on file documented as of this encounter Plan of Treatment Not on file documented as of this encounter Visit Diagnoses Diagnosis Thoracic or lumbosacral neuritis or radiculitis, unspecified- Primary documented in this encounter Care Teams Rn Lactation Relationship Specialty Start Date End Date Jaswinder Duran PA [address] [place] [address] [phone] PCP - General 05/06/15 documented as of this encounter
--- OUTSIDE RECORDS SUMMARY | 2024-10-04 23:53 | XMS_ITS | Encounter Summary ---
Author Organization [facility] Address [address] [place] [address] Care Team Providers Care Tube Maker Name Role Phone Jaswinder Duran Primary Care Provider Encounter Details Date Type Department Care Team (Latest Contact Info) Description 07/11/2006 Outpatient Historical [facility] [address] [place] [phone] Vicki Mcdonough PA NO ADDRESS ON FILE Thoracic or Lumbosacral Neuritis or Radiculitis, Unspecified (Primary Dx) Social History Tobacco Use Types Packs/Day Years Used Date Smoking Tobacco: Never Assessed Comments Unknown Sex and Gender Information Value Date Recorded Sex Assigned at Not on file Legal Sex Female 5:09 AM ELECTRIC MOTOR REBUILDER Gender Identity Not on file Sexual Orientation Not on file documented as of this encounter Plan of Treatment Not on file documented as of this encounter Visit Diagnoses Diagnosis Thoracic or lumbosacral neuritis or radiculitis, unspecified- Primary documented in this encounter Care Teams Tube Maker Relationship Specialty Start Date End Date Jaswinder Duran PA [address] [place] [address] [phone] PCP - General 05/06/15 documented as of this encounter
--- OUTSIDE RECORDS SUMMARY | 2024-10-04 23:53 | XMS_ITS | Encounter Summary ---
Author Organization [facility] Address [address] [facility] [place] [address] Care Team Providers Care Truck Terminal Manager Name Role Phone Jaswinder Duran Primary Care Provider [phone] Encounter Details Date Type Department Care Team (Latest Contact Info) Description 08/11/2006 Outpatient Historical [facility] Chronic Pain [address] [place] [phone] Remy Wray Social History Tobacco Use Types Packs/Day Years Used Date Smoking Tobacco: Never Assessed Comments Unknown Sex and Gender Information Value Date Recorded Sex Assigned at Not on file Legal Sex Female 5:09 AM CARGO WORKER Gender Identity Not on file Sexual Orientation Not on file documented as of this encounter Plan of Treatment Not on file documented as of this encounter Visit Diagnoses Not on filedocumented in this encounter Care Teams Truck Terminal Manager Relationship Specialty Start Date End Date Jaswinder Duran PA [address] [place] [address] [phone] PCP - General 05/06/15 documented as of this encounter
--- OUTSIDE RECORDS SUMMARY | 2024-10-04 23:53 | XMS_ITS | Encounter Summary ---
Author Organization [facility] Address [address] [place] [address] Care Team Providers Care Punchboard Filling Machine Operator Name Role Phone Jaswinder Duran Primary Care Provider [phone] Encounter Details Date Type Department Care Team (Latest Contact Info) Description 06/05/2006 Outpatient Historical [facility] [address] [place] [address] [place] [facility] [address] [place] [phone] Kurtis Francois MD [address] [facility] [address] [place] [address] Displacement of Lumbar Intervertebral Disc without Myelopathy (Primary Dx) Social History Tobacco Use Types Packs/Day Years Used Date Smoking Tobacco: Never Assessed Comments Unknown Sex and Gender Information Value Date Recorded Sex Assigned at Not on file Legal Sex Female 5:09 AM PLUM PACKER Gender Identity Not on file Sexual Orientation Not on file documented as of this encounter Plan of Treatment Not on file documented as of this encounter Visit Diagnoses Diagnosis Displacement of lumbar intervertebral disc without myelopathy- Primary documented in this encounter Care Teams Punchboard Filling Machine Operator Relationship Specialty Start Date End Date Jaswinder Duran PA [address] [place] [address] [phone] PCP - General 05/06/15 documented as of this encounter
--- OUTSIDE RECORDS SUMMARY | 2024-10-04 23:53 | XMS_ITS | Encounter Summary ---
Author Organization [facility] Address [address] [place] [address] Care Team Providers Care Pipe Jeeper Name Role Phone Jaswinder Duran Primary Care Provider [phone] Encounter Details Date Type Department Care Team (Latest Contact Info) Description 12/21/2004 Outpatient Historical [facility] [address] [place] [address], [address] [place] [address] Don Kee, NO ADDRESS ON FILE FEMALE GENITAL SYMPTOMS NOS (Primary Dx); ABNORMAL FIND-BODY STRUCT NEC Social History Tobacco Use Types Packs/Day Years Used Date Smoking Tobacco: Never Assessed Comments Unknown Sex and Gender Information Value Date Recorded Sex Assigned at Not on file Legal Sex Female 5:09 AM SLAB LIFTING ENGINEER Gender Identity Not on file Sexual Orientation Not on file documented as of this encounter Plan of Treatment Not on file documented as of this encounter Visit Diagnoses Diagnosis Unspecified symptom associated with female genital organs- Primary Nonspecific abnormal findings on radiological and other examination of other site of body documented in this encounter Care Teams Pipe Jeeper Relationship Specialty Start Date End Date Jaswinder Duran PA [address] [place] [address] [phone] PCP - General 05/06/15 documented as of this encounter
--- OUTSIDE RECORDS SUMMARY | 2024-10-04 23:53 | XMS_ITS | Encounter Summary ---
Author Organization [facility] Address [address] [place] [address] Care Team Providers Care Seaman Name Role Phone Jaswinder Duran Primary Care Provider [phone] Encounter Details Date Type Department Care Team (Latest Contact Info) Description 12/05/2006 Outpatient Historical [facility] General Surgery [address] [place] [phone] Inez Napoles MD [address] [place], [place] [address] [phone] Flatulence, Eructation, and Gas Pain (Primary Dx); Unspecified Hemorrhoids with Other Complication Social History Tobacco Use Types Packs/Day Years Used Date Smoking Tobacco: Never Assessed Comments Unknown Sex and Gender Information Value Date Recorded Sex Assigned at Not on file Legal Sex Female 5:09 AM ROASTER OPERATOR Gender Identity Not on file Sexual Orientation Not on file documented as of this encounter Plan of Treatment Not on file documented as of this encounter Visit Diagnoses Diagnosis Flatulence, eructation, and gas pain- Primary Unspecified hemorrhoids with other complication documented in this encounter Care Teams Seaman Relationship Specialty Start Date End Date Jaswinder Duran PA [address] [place] [phone] PCP - General 05/06/15 documented as of this encounter
--- NOTE | 2024-10-04 23:54 | XRR_ITS ---
PROCEDURE INFORMATION: Exam: XR Chest Exam date and time: 10/05/2024 12:01 AM Age: 69 years old Clinical indication: Shortness of breath; Additional info: Respiratory failure TECHNIQUE: Imaging protocol: Radiologic exam of the chest. Views: 1 view. COMPARISON: No relevant prior studies available. FINDINGS: Lungs: No CHF/pulmonary edema. Some hyperinflation of the lungs, possibly related to COPD. Visible lungs appear essentially clear. Pleural spaces: No visible pneumothorax. No definite pleural fluid. Prominent asymmetric pleural thickening suspected in the right lung apex, although possibly this could be artifactual due to some patient rotation. Mass or neoplasm is this region is not excluded. Eventual comparison with any available prior exams will be helpful. Follow-up chest x-ray without patient rotation may be useful. Ultimately, CT may be needed for further evaluation to exclude a mass, if not already performed. Heart/Mediastinum: Heart size is within normal limits. Bones/joints: Moderate thoracolumbar scoliosis. XR/XR chest 1V portable [id number] IMPRESSION: 1. No definite CHF or pneumonia. 2. Some hyperinflation of the lungs, possibly related to COPD. 3. Prominent asymmetrical pleural thickening suspected in the right lung apex. Please see above discussion. 4. Other findings discussed above.
--- NOTE | 2024-10-04 23:54 | ECG_ITS ---
[facility] Test Date: 2024-10-04 Pat Name: Etelvina Evans Department: Room: Gender: Female Strap Buckler Machine: : 1955 Requested By: Ye Griffin Order Number: [id number] Dedra MD: CHRISTY RUSSO Measurements Intervals [place] Rate: 82 P: 41 CT: 180 QRS: 45 QRSD: 141 T: 40 QT: 357 QTc: 418 Interpretive Statements SINUS RHYTHM POSSIBLE LEFT ATRIAL ENLARGEMENT [-0.1mV P-WAVE IN V1/V2] INDETERMINATE AXIS RIGHT BUNDLE BRANCH BLOCK [120+ ms QRS DURATION, UPRIGHT V1, 40+ ms S IN I/aVL/V4/V5/V6] No previous ECG available for comparison Electronically Signed On 10-07-2024 13:58:33 CDT by CHRISTY RUSSO [email or web address]
[2024-10-04 23:55] VITALS: PULSE 77; RESP 21; O2SAT 100
[2024-10-04 23:59] VITALS: PULSE 73; RESP 22; O2SAT 98
[2024-10-05] VITALS (18 sets, daily range): BP systolic 100–158; BP diastolic 49–102; PULSE 53–91; RESP 14–24; TEMP 36.4–36.8; O2SAT 93–100
[2024-10-05] MEDS: methylPREDNISolone sod succ 125 mg/2 mL INJ IVP (00:10)
[2024-10-05 00:17] LABS: ABG PCO2 42.4 mmHg (35-45); ABG PH Result 7.29 (7.35-7.45); Arterial Blood Gas Hematocrit 34.6 % (37-47); Blood Gas Allen Test Pos; Blood Gas Operator Identificat BD; Blood Gas Sample Site Brachial, left; Blood Gas Sample Type Arterial; HCO3 ABG 20.4 mmol/L (22-26); PO2 ABG 85.3 mmHg (80.0-100.0); PO2 FiO2 Ratio Arterial Blood 213
[2024-10-05] MEDS: cefTRIAXone 1,000 mg SDV 1000 MG IVP (00:19)
[2024-10-05] MEDS: magnesium sulfate premix 2 GM/50 ML PIGGYBACK IV (00:19)
[2024-10-05 00:21] LABS: Hematocrit 39.7 % (36-47); Hemoglobin 11.50 g/dL (11.27-16.99); Mean Corpuscular HGB Conc 29.0 g/dL (30-55); Mean Corpuscular Hemoglobin 28.6 pg (27-33); Mean Corpuscular Volume 98.8 fl (85-98); Nucleated Red Blood Cells % 0 %; Platelet Count 455 10^3/cmm (157-399); Red Blood Count 4.02 10^6/uL (3.85-5.65); White Blood Count 20.93 10^3/uL (3.29-11.43)
[2024-10-05 00:31] LABS: INR 0.99 (0.8-1.2); Prothrombin Time 13.80 SECONDS (12.1-14.9)
[2024-10-05 00:32] LABS: Partial Thromboplastin Time 26.5 SECONDS (23.9-36.7)
[2024-10-05 00:44] LABS: Troponin(5th) Baseline 25 ng/L (0-10)
[2024-10-05 00:48] LABS: Alanine Aminotransferase 18 U/L (0-33); Albumin Level 4.2 g/dL (3.5-5.2); Alkaline Phosphatase 101 U/L (35-105); Anion Gap 23.6 (5-19); Aspartate Amino Transferase 31 U/L (0-32); Blood Urea Nitrogen 17 mg/dL (8-23); Calcium 9.1 mg/dL (8.5-10.5); Carbon Dioxide 19 mmol/L (22-29); Chloride 101 mmol/L (98-107); Creatinine Clr Calc Pharmacy 36.8418; Globulin 2.4 g/dL (1.3-4.6); Glucose 256 mg/dL (65-115); Magnesium 2.8 mg/dL (1.7-2.3); NT Pro B Type Natriuretic Pept 7179 pg/mL (0-125); Osmolality Calculated 298 mOsm/kg (285-295); Potassium 4.6 mmol/L (3.5-5.1); Sodium 139 mmol/L (136-145); Total Protein 6.6 g/dL (6.6-8.7)
[2024-10-05 00:57] LABS: Respiratory Syncytial Virus Ce NEGATIVE (Negative); SARS-CoV-2 PCR NEGATIVE (Negative)
[2024-10-05 01:07] LABS: Lactic Sepsis W/Reflex 7.8 mmol/L (0.5-2.2)
[2024-10-05 01:10] LABS: Reflex Lactate Order REFLEX LACTIC ORDERD
--- NOTE | 2024-10-05 01:14 | CTR_ITS ---
PROCEDURE INFORMATION: Exam: CTA Chest With Contrast Exam date and time: 10/05/2024 1:30 AM Age: 69 years old Clinical indication: Shortness of breath; Prior surgery; Surgery date: 6+ months; Surgery type: Coronary stent; SOB with hypoxia; Additional info: Respiratory failure TECHNIQUE: Imaging protocol: Computed tomographic angiography of the chest with contrast. Exam focused on the arteries. 3D rendering (Not supervised by radiologist): MIP and/or 3D reconstructed images were created by the technologist. Radiation optimization: All CT scans at this facility use at least one of these dose optimization techniques: automated exposure control; mA and/or kV adjustment per patient size (includes targeted exams where dose is matched to clinical indication); or iterative reconstruction. Contrast material: OMNI 350; Contrast volume: 59 ml; Contrast route: INTRAVENOUS (IV); COMPARISON: CR (CHEST, ) 10/05/2024 12:01 AM RADIATION DOSE METRICS: Total DLP (mGy-cm): 262.03 FINDINGS: Pulmonary arteries: The pulmonary arteries are adequately visualized to the subsegmental level. No filling defects are identified to suggest pulmonary artery embolism. Breathing artifact limits evaluation of the left upper lobe pulmonary arteries. Aorta: Atherosclerotic calcifications of the aorta are present. No aneurysm is identified. Lungs: [id number] emphysematous changes. Interlobular septal thickening with areas of ground-glass suggesting pulmonary edema. Moderate bronchial wall thickening in the lower lobes and mild bronchial wall thickening in the upper lobes. Mild debris in the distal trachea moderate debris in the right mainstem bronchus and bronchus intermedius. Right lower lobe atelectasis. Mild left lateral lower lobe atelectasis. Scattered subpleural nodules measuring up to 4 mm, some of which are calcified, likely postinflammatory. Chronic bilateral lateral lower rib fractures. Pleural spaces: No pleural effusion or pneumothorax. Heart: Mild cardiomegaly. No pericardial effusion or pericardial thickening. Coronary arteries: Moderate coronary artery calcification. Lymph nodes: No enlarged lymph nodes are identified. Adrenal glands: 2.5 cm left adrenal nodule with suggested macroscopic fat. Adenoma versus myelolipoma. 1.7 cm right adrenal nodule with Hounsfield units less than 10 likely adenoma. 3 mm nonobstructing left upper pole renal calculus. Bones/joints: No acute osseous abnormalities are seen. Multilevel thoracic vertebral body height loss which appears chronic. Soft tissues: Mild diffuse subcutaneous edema. CT/CT angio chest PE protcl [id number] IMPRESSION: 1. No evidence of pulmonary embolism. 2. Mild debris in the distal trachea with moderate debris in the right mainstem bronchus and bronchus intermedius. 3. Interlobular septal thickening and areas of ground-glass suggesting pulmonary edema. 4. Diffuse bronchial wall thickening may be related to acute or chronic bronchitis or pulmonary edema. 5. Scattered subpleural pulmonary nodules measuring up to 4 mm. Optional follow-up CT chest in 6-12 months per Fleischner criteria. COMMENTS: 1. Consistent with the [place] [employer]'s Incidental Findings Committee white paper (J Am Ray Radiol 2018): Any incidental renal lesion less than 1 cm or classified as too small to characterize, or any incidental cystic renal lesion characterized as simple-appearing, is likely benign. No follow-up imaging is recommended for these lesions per consensus recommendations based on imaging criteria. 2. The presence of pulmonary emphysema on CT is an independent risk factor for lung cancer. In the absence of a history or active diagnosis of lung cancer, it is recommended that this patient with emphysema be evaluated for enrollment in a low dose CT lung cancer screening program.
[2024-10-05] MEDS: iohexol 350 mg/mL 500 mL Btl (per mL) IV (01:32)
--- NOTE | 2024-10-05 01:54 | ECG_ITS ---
[facility] Test Date: 2024-10-05 Pat Name: Etelvina Evans Department: Room: Gender: Female Mixer Blender: : 1955 Requested By: Ye Griffin Order Number: [id number] Dedra MD: CHRISTY RUSSO Measurements Intervals [place] Rate: 56 P: 53 MS: 160 QRS: 63 QRSD: 124 T: -68 QT: 427 QTc: 415 Interpretive Statements SINUS BRADYCARDIA RIGHT BUNDLE BRANCH BLOCK [120+ ms QRS DURATION, UPRIGHT V1, 40+ ms S IN I/aVL/V4/V5/V6] SEPTAL MYOCARDIAL INFARCTION , PROBABLY OLD [40+ ms Q WAVE IN V1/V2] MODERATE T-WAVE ABNORMALITY, CONSIDER LATERAL ISCHEMIA [-0.1+ mV T-WAVE IN I/aVL/V5/V6] MODERATE T-WAVE ABNORMALITY, CONSIDER INFERIOR ISCHEMIA [-0.1+ mV T-WAVE IN II/aVF] Compared to ECG 10/04/2024 23:37:01 Myocardial infarct finding now present Electronically Signed On 10-07-2024 14:10:27 CDT by CHRISTY RUSSO [email or web address]
--- NOTE | 2024-10-05 02:15 | ED_ITS ---
HPI - SOB/Dyspnea 2 General: Chief Complaint: Shortness of Breath/Dyspnea Stated Complaint: cant breathe Time Seen by Provider: 10/04/24 23:36 History of Present Illness: HPI Narrative: Patient is a 69-year-old female with history of severe COPD who presented with acute onset respiratory distress. Per accompanying family member, the patient began experiencing severe shortness of breath approximately 15 minutes prior to arrival while traveling through the area. They had been on vacation in [place] for a week prior to this episode. The patient had no reported respiratory distress earlier in the day. The patient was placed on supplemental oxygen upon arrival but quickly deteriorated, requiring BiPAP. The patient has a significant history of respiratory failure, having required intubation at [facility] approximately 2 weeks ago. She also has a cardiac history including an aortic bypass and a heart catheterization approximately 8 months ago which was complicated by arterial damage requiring helicopter transport. The family reports her heart function is significantly compromised as a result of this complication. Related Data Allergies Allergy/AdvReac Type Severity Reaction Status Date / Time codeine Allergy ALGY-Hives Verified 10/05/24 00:03 Physical Exam 2 Narrative: EXAM NARRATIVE: General: Thin, chronically ill-appearing 69-year-old female in acute respiratory distress, initially obtunded but responsive to simple commands HEENT: Normocephalic, atraumatic, mucous membranes moist Neck: Supple Respiratory: Diffuse wheezing throughout lung hernandez, extremely tight, minimal respiratory effort initially Cardiovascular: Regular rate and rhythm, 2+ pulses in all extremities Abdomen: Soft, non-distended, no rebound or guarding Neurological: Initially obtunded but able to follow simple commands, no focal deficits noted Extremities: No edema noted Course 2 Vital Signs: Vital signs: Vital Signs Temperature 96.0 F L 10/04/24 23:41 Pulse Rate 53 L 10/05/24 01:34 Respiratory Rate 18 10/05/24 01:34 Blood Pressure 105/54 10/05/24 01:34 Pulse Oximetry 100 10/05/24 01:34 Oxygen Delivery Me thod BiPAP 10/05/24 01:34 Oxygen Flow Rate 4 10/04/24 23:41 Fraction of Inspir ed Oxygen 30 10/04/24 23:59 MDM - SOB/Dyspnea Medical Decision Making ROS: Constitutional: Acute respiratory distress Respiratory: Severe shortness of breath, diffuse wheezing Cardiovascular: No chest pain reported Neurological: Initially obtunded but able to follow simple commands All other systems: Unable to assess due to patient's acute condition MEDICATIONS AND ALLERGIES: Medications: - Trelegy (COPD inhaler) - Losartan 25mg (takes half tablet daily) - Prednisone (dose not specified) - Duloxetine 60mg twice daily - Albuterol inhaler - Alprazolam (dose not specified) - Apixaban 5mg twice daily - Carvedilol (dose not specified) - Clopidogrel (Plavix) (dose not specified) - Pantoprazole (dose not specified) - Tizanidine (dose not specified) - Nicotine patch - Previously on Symbicort (discontinued) - Previously on Celebrex (discontinued) Allergies: None reported PAST HISTORICAL DATA: PMH: - Severe COPD requiring previous intubation (2 weeks ago) - Cardiac history with aortic bypass - Cardiac catheterization 8 months ago with arterial complication resulting in significant cardiac damage Social History: - Former smoker (quit, currently using nicotine patch) - Home oxygen use (2L) as needed (patient reported to be non-compliant with continuous use) VITAL SIGNS: Initial vital signs: - BP: 118/87 mmHg - HR: 83 bpm - O2 saturation: 65% on nasal cannula, improved to 100% on BiPAP with 100% FiO2 Subsequent vital signs: - BP: 105/54 mmHg - O2 saturation: 100% on BiPAP with 40% FiO2 INITIAL IMPRESSION AND PLAN: Given the history and presentation, the primary working diagnosis is acute respiratory failure secondary to COPD exacerbation. Additional considerations include pneumonia, pulmonary embolism, and acute heart failure exacerbation given the patient's cardiac history. Based on this initial impression I will order: 1. Immediate respiratory support with BiPAP 2. Serial breathing treatments with Duoneb via BiPAP 3. IV Solu-Medrol 125mg 4. IV magnesium 2 grams 5. IV fluids 6. Complete blood count, comprehensive metabolic panel, cardiac enzymes, BNP, lactic acid 7. Blood cultures 8. Chest X-ray 9. EKG 10. Arterial blood gas 11. Viral respiratory panel including COVID-19, influenza, and RSV 12. CTA chest to evaluate for pulmonary embolism 13. Empiric antibiotics with IV Rocephin 1 gram TEST INTERPRETATIONS: Laboratory Results: - WBC: 20.9 (elevated, suggesting infection) - Hemoglobin: 11.5 - Hematocrit: 39.7 - Platelets: 455 - Glucose: 256 (elevated) - Lactic acid: 7.8 (significantly elevated) - Magnesium: 2.8 - Troponin: 25 (indeterminate elevation) - BNP: 7,179 (markedly elevated) - Viral panel: Negative for influenza, RSV, and COVID-19 Arterial Blood Gas: - pH: 7.29 (mild acidosis) - pCO2: 42 (not significantly elevated despite clinical presentation) Imaging: - Chest X-ray: No definite CHF or pneumonia. Hyperinflation of lungs consistent with COPD. Prominent asymmetrical pleural thickening in right lung. - CTA Chest: Significant emphysematous findings. No pulmonary embolism identified. EKG: - Sinus bradycardia at 56 bpm - Right bundle branch block - T-wave inversions in inferior and lateral precordial leads - No ischemic ST elevations CONSIDERED BUT NOT PERFORMED: Endotracheal intubation CONSIDERED but NOT DONE due to patient's positive response to non-invasive ventilation with BiPAP. Patient's respiratory status improved significantly with BiPAP, becoming more alert and maintaining adequate oxygenation, eliminating the immediate need for intubation. FINAL IMPRESSION: Based on all the above, my clinical impression is most compatible with acute respiratory failure secondary to COPD exacerbation, complicated by leukocytosis, lactic acidosis, and hyperglycemia. The clinical picture is not currently suggestive of acute pulmonary embolism (ruled out by CTA), primary pneumonia (no infiltrates on imaging), or primary cardiac event (no acute ischemic changes on EKG despite elevated troponin). Although other conditions were also considered, they were deemed unlikely based on the clinical information available. CLINICAL DISPOSITION: The patient's current condition is stabilized but requires continued respiratory support in my estimation and the most appropriate and indicated disposition at this time is admission to the step-down unit under hospitalist care. The patient requires admission due to acute respiratory failure requiring BiPAP support, significantly elevated inflammatory markers (WBC 20.9), markedly elevated lactic acid (7.8), and elevated BNP (7,179) suggesting possible cardiac component. Given her recent history of intubation for similar symptoms and her complex cardiac history, she requires close monitoring and continued treatment that cannot be safely provided in an outpatient setting. The patient has shown improvement with initial interventions but continues to require respiratory support and further evaluation of her elevated cardiac markers. RISK STRATIFICATION AND CLINICAL DECISION RULES APPLIED: CURB-65 Score for Community-Acquired Pneumonia: 1 point (age >65) - Low risk for mortality, but patient's clinical presentation and respiratory failure override this score and necessitate admission. CASE SUMMARY: 69-year-old female with history of severe COPD and cardiac disease presented with acute respiratory distress while traveling. Patient had been intubated for similar symptoms approximately 2 weeks prior at [facility]. Upon arrival, patient was severely hypoxic with O2 saturation of 65%, diffuse wheezing, and minimal respiratory effort. She was immediately placed on BiPAP with significant improvement in oxygenation. Workup revealed leukocytosis (WBC 20.9), lactic acidosis (7.8), elevated BNP (7,179), and indeterminate troponin elevation (25). CTA chest showed emphysematous changes without pulmonary embolism. Patient received IV steroids, magnesium, bronchodilator treatments, and empiric antibiotics. Patient's condition stabilized on BiPAP with improvement in mental status and respiratory parameters. Given the severity of presentation, recent intubation history, and abnormal laboratory values, patient was admitted to the step-down unit under hospitalist care for continued management of respiratory failure and further evaluation of cardiac status. SEPSIS COMPLIANCE: I have performed the sepsis fluid reassessment at 2024-10-05 01:48:23. Sepsis: SIRS 2 (tachypnea, leukocytosis), respiratory source suspected, lactic acid 7.8. Antibiotics (Rocephin 1g IV) given at 2024-10-05 01:58:23. Fluid bolus not given, reason: concern for fluid overload given elevated BNP of 7,179 suggesting cardiac component. CMS Sepsis Bundle compliant. Lab Data I reviewed the patient's lab results. 10/04/24 23:57 10/04/24 23:57 Labs/Radiology: Radiology Impressions Chest X-Ray 10/04/24 23:54 IMPRESSION: 1. No definite CHF or pneumonia. 2. Some hyperinflation of the lungs, possibly related to COPD. 3. Prominent asymmetrical pleural thickening suspected in the right lung apex. Please see above discussion. 4. Other findings discussed above. Laboratory Results WBC 20.93 10^3/uL (3.29-11.43) H 10/04/24 23:57 RBC 4.02 10^6/uL (3.85-5.65) 10/04/24 23:57 Hgb 11.50 g/dL (11.27-16.99) 10/04/24 23:57 Hct 39.7 % (36-47) 10/04/24 23:57 MCV 98.8 fl (85-98) H 10/04/24 23:57 MCH 28.6 pg (27-33) 10/04/24 23:57 MCHC 29.0 g/dL (30-55) L 10/04/24 23:57 RDW 16.6 % (12.1-15.1) H 10/04/24 23:57 Plt Count 455 10^3/cmm (157-399) H 10/04/24 23:57 MPV 9.6 fL (7.4-10.4) 10/04/24 23:57 Neut % (Auto) 69.4 % 10/04/24 23:57 Lymph % (Auto) 22.5 % 10/04/24 23:57 Henderson % (Auto) 6.6 % 10/04/24 23:57 Eos % (Auto) 0.1 % 10/04/24 23:57 Baso % (Auto) 0.2 % 10/04/24 23:57 Neut # (Auto) 14.52 10^3/uL (1.8-7.7) H 10/04/24 23:57 Lymph # (Auto) 4.7 10^3/uL (0.8-4.8) 10/04/24 23:57 Henderson # (Auto) 1.4 10^3/uL (0.2-0.9) H 10/04/24 23:57 Eos # (Auto) 0.0 10^3/uL (0.0-0.8) 10/04/24 23:57 Baso # (Auto) 0.0 10^3/uL (0.0-0.1) 10/04/24 23:57 Nucleated RBC % (auto) 0 % 10/04/24 23:57 Nucleated RBCs # 0.0 /100WBC 10/04/24 23:57 PT 13.80 SECONDS (12.1-14.9) 10/04/24 23:57 INR 0.99 (0.8-1.2) 10/04/24 23:57 APTT 26.5 SECONDS (23.9-36.7) 10/04/24 23:57 Specimen Type Arterial 10/05/24 00:04 Sample Site Brachial, left 10/05/24 00:04 ABG pH 7.29 (7.35-7.45) L 10/05/24 00:04 ABG pCO2 42.4 mmHg (35-45) 10/05/24 00:04 ABG pO2 85.3 mmHg (80.0-100.0) 10/05/24 00:04 ABG PO2/FiO2 Ratio 213 10/05/24 00:04 ABG HCO3 20.4 mmol/L (22-26) L 10/05/24 00:04 ABG Base Excess -5.9 mmol/L (-2.0-2.0) L 10/05/24 00:04 [place] Test Pos 10/05/24 00:04 Hematocrit 34.6 % (37-47) L 10/05/24 00:04 O2 Delivery Device Bipap 10/05/24 00:04 FiO2 40.0 % 10/05/24 00:04 Tmd Teacher Assistant ID Bd 10/05/24 00:04 Sodium 139 mmol/L (136-145) 10/04/24 23:57 Potassium 4.6 mmol/L (3.5-5.1) 10/04/24 23:57 Chloride 101 mmol/L (98-107) 10/04/24 23:57 Carbon Dioxide 19 mmol/L (22-29) L 10/04/24 23:57 Anion Gap 23.6 (5-19) H 10/04/24 23:57 BUN 17 mg/dL (8-23) 10/04/24 23:57 Creatinine 0.9 mg/dL (0.5-0.9) 10/04/24 23:57 GFR Calculation 62.3 mL/min (90-130) L 10/04/24 23:57 Glucose 256 mg/dL (65-115) H 10/04/24 23:57 Calculated Osmolality 298 mOsm/kg (285-295) H 10/04/24 23:57 Lactic Acid 7.8 mmol/L (0.5-2.2) H* 10/04/24 23:57 Calcium 9.1 mg/dL (8.5-10.5) 10/04/24 23:57 Magnesium 2.8 mg/dL (1.7-2.3) H 10/04/24 23:57 Total Bilirubin 0.2 mg/dL (0.15-1.2) 10/04/24 23:57 AST 31 U/L (0-32) 10/04/24 23:57 ALT 18 U/L (0-33) 10/04/24 23:57 Alkaline Phosphatase 101 U/L (35-105) 10/04/24 23:57 Troponin T Baseline 25 ng/L (0-10) H 10/04/24 23:57 NT-Pro-B Natriuret Pep 7179 pg/mL (0-125) H 10/04/24 23:57 Total Protein 6.6 g/dL (6.6-8.7) 10/04/24 23:57 Albumin 4.2 g/dL (3.5-5.2) 10/04/24 23:57 Globulin 2.4 g/dL (1.3-4.6) 10/04/24 23:57 Influenza A (PCR) Negative (Negative) 10/05/24 00:01 Influenza Type B (PCR) Negative (Negative) 10/05/24 00:01 RSV (PCR) Negative (Negative) 10/05/24 00:01 SARS-CoV-2 (PCR) Negative (Negative) 10/05/24 00:01 All radiology interpretation(s) finalized by discharge Discharge Plan Discharge Patient Disposition: Admitted As Inpatient Clinical Impression: Acute hypoxemic respiratory failure, Leukocytosis, Hypoxia, COPD (chronic obstructive pulmonary disease) Condition: Fair Coding Level of Care Code ED Arts Administrator for Janice Araujo
[2024-10-05 02:24] LABS: Troponin 5 2HR 26.99 ng/L (0-10); Troponin 5 2HR Delta 1.99 ABS# (0-10)
[2024-10-05 04:33] LABS: Lactic Acid level (Lactate) 1.4 mmol/L (0.5-2.2)
--- NOTE | 2024-10-05 05:54 | ECG_ITS ---
[employer] Test Date: 2024-10-05 Pat Name: Etelvina Evans Department: Room: 105 Gender: Female Client Service Supervisor: : [id number] Requested By: Ye Griffin Order Number: [id number] Dedra MD: CHRISTY RUSSO Measurements Intervals [place] Rate: 68 P: 53 MT: 164 QRS: 74 QRSD: 126 T: -79 QT: 411 QTc: 438 Interpretive Statements SINUS RHYTHM RIGHT BUNDLE BRANCH BLOCK [120+ ms QRS DURATION, UPRIGHT V1, 40+ ms S IN I/aVL/V4/V5/V6] SEPTAL MYOCARDIAL INFARCTION , PROBABLY OLD [40+ ms Q WAVE IN V1/V2] MODERATE T-WAVE ABNORMALITY, CONSIDER LATERAL ISCHEMIA [-0.1+ mV T-WAVE IN I/aVL/V5/V6] MODERATE T-WAVE ABNORMALITY, CONSIDER INFERIOR ISCHEMIA [-0.1+ mV T-WAVE IN II/aVF] Compared to ECG 10/05/2024 01:41:13 Sinus bradycardia no longer present Electronically Signed On 10-07-2024 14:09:50 CDT by CHRISTY RUSSO [email or web address]
[2024-10-05 06:18] LABS: Troponin 5 6HR 28.76 ng/L (0-10); Troponin 5 6HR Delta 3.76 ng/L (0-12)
--- NOTE | 2024-10-05 06:33 | P.HP_ITS ---
Providers/Chief Complaint 2 Admitting Physician: Shani Araya MD--admitted this morning at 6:17 AM Chief Complaint: cant breathe History of Present Illness Etelvina Evans is a 69 year old female with medical history significant for COPD and pulmonary disease on a lifelong cigarette smoker who has smoked a minimum of a pack of cigarettes a day for 55 years and still actively smoking until only 2 weeks ago. Patient could not breathe and had to be admitted to an outside hospital 2 weeks ago and then was discharged after being treated for pulmonary disease with shortness of breath. Patient is on chronic home oxygen. Patient represented to the ED here because she could not breathe pulse oximetry at presentation was 60%. Patient was very hypoxic and had a lactate of 7.8 and a repeat lactate later came down to a 1.4. I asked for CT of the chest upon being consulted about the patient. CT of the chest did not show any PE but noted pulmonary disease with pulmonary nodules and ground glass opacity liken pulmonary edema. proBNP was noted to be 7179. Patient did remarkably well in the ED with BiPAP and was admitted to stepdown unit room 105 Patient naturally is on nightly oxygen at 2 L at home and had been on BiPAP at 40% FiO2 Review of Systems 2 Narrative: Patient is awake and alert presented with dyspnea obtundation in the emergency room with low pulse ox at 60% and was placed on BiPAP Medications/Allergies Allergies Allergy/AdvReac Type Severity Reaction Status Date / Time codeine Allergy ALGY-Hives Verified 10/05/24 00:03 Sulfa (Sulfonamide Allergy ADR-Itching Verified 10/05/24 05:23 Antibiotics) Vitals/I&O/Wt Last Vital Signs Temp 97.6 F 10/05/24 05:24 Pulse 65 10/05/24 05:24 Resp 19 H 10/05/24 05:24 BP 101/51 10/05/24 05:24 Pulse Ox 100 10/05/24 05:24 O2 Del Method Nasal Cannula 10/05/24 05:24 O2 Flow Rate 4 10/04/24 23:41 FiO2 40 10/05/24 02:32 10/04/24 10/04/24 10/05/24 14:59 22:59 06:59 Intake Total 50 / 50 Balance 50 / 50 Weight last 48 hrs Weight 48.761 kg Weight 39.009 kg Physical Exam 2 Narrative: Patient is awake alert oriented x 3 doing okay on BiPAP. HEENT normocephalic atraumatic neck neck is supple cardiovascular heart rate is regular lungs are pretty much clear abdomen soft nontender nondistended unremarkable extremities intact no edema has good pulses neurology there is no focality lab studies lab studies reviewed and noted. Data 10/04/24 23:57 10/04/24 23:57 Micro: Microbiology 10/04/24 00:16 Blood Culture - Preliminary Blood SPECIMEN COLLECTED 10/04/24 23:57 Blood Culture - Preliminary Blood SPECIMEN COLLECTED A&P Assessment and plan 1. COPD (chronic obstructive pulmonary disease): Continue antibiotics for associated bronchitis Continue supplemental oxygen Once medically stable patient needs to see a assistant program director If we have 1 in house they will follow-up with the patient Will continue to monitor Patient had done remarkably well just with care from the ED and transferring to stepdown unit Patient uses CPAP at home at night with 2 L of oxygen patient should not go to sleep without having a BiPAP here this helped her dramatically 2. Hypoxia: This is the hallmarked of patient's disease Supportive care with BiPAP therapy and oxygen Oxygen therapy with BiPAP is to near resolution Continue to treat and optimize 3. Leukocytosis: No much of any infectious process except for associated bronchitis and hypoxemia These all can give elevated white count because of stressed system Patient is getting antibiotics for associated bronchitis Continue supportive care for this 4. Acute hypoxemic respiratory failure: - Admitted to stepdown unit with BiPAP and improving - Will initiate ceftriaxone and azithromycin for associated bronchitis in the setting of much leukocytosis of 20,000. Continue nebulizing treatments No need for steroid patient does not have any bronchial spasm 5. Lactic acidosis: Lactic acidosis is due to extreme hypoxia - Once patient has been optimized a repeat lactate went down from 7.8 to 1.4 6. Ground glass opacity present on imaging of lung: Groundglass opacity likely due to pulmonary edema from is stressed system Will give one-time Lasix 40 mg IV x 1 only proBNP is elevated at 7000 and this is not all because of any heart failure this is also associated with pulmonary disease You may decide to give more doses of Lasix as by your follow-up and evaluation 7. Pulmonary nodules: Patient once being treated for the acute process of hypoxemic respiratory failure Patient need to follow-up with her assistant program director or any assistant program director for likely bronc and biopsy Risk factor is long life cigarette smoking for 55 years still actively smoking until just 2 weeks ago when she was admitted to an outside hospital Continue to treat and monitor PDMP PDMP Reviewed: Last Reviewed 10/05/24 07:03 by Shani Araya MD Attestations 2 Medical Necessity Statement*: Patient who could not breathe for the past 2 weeks had a recent admission to an outside hospital presenting with the same complaints acute hypoxic respiratory failure deserves 2 midnights for evaluation and optimization of care. Coding Level of Care Code 57477 Diagnoses COPD (chronic obstructive pulmonary disease) J44.9 Hypoxia R09.02 Leukocytosis D72.829 Acute hypoxemic respiratory failure J96.01 Lactic acidosis E87.20 Ground glass opacity present on imaging of lung R91.8 Pulmonary nodules R91.8 Time Spent (min) 60
[2024-10-05] MEDS: heparin 5,000 unit/mL INJ 1 mL 5000 UNIT SUBCUT (06:44)
[2024-10-05] MEDS: methylPREDNISolone sod succ 40 mg/mL INJ IVP ×2 (08:03→20:05)
[2024-10-05] MEDS: FUROsemide 10 mg/mL SDV 10mL 60 MG IVP (08:04)
[2024-10-05] MEDS: cefTRIAXone 2,000 mg SDV 2000 MG IVP (08:04)
--- NOTE | 2024-10-05 11:16 | PC.PHAR ---
I did Patient medication list from the list I received from [facility]. When I finished it I phoned Patient's life partner adn he stated she has someone named Lizbeth come in and do her medication. I phoned Lizbeth and she stated that she had made a list for the Patient and she will have the life partner bring it in . I spoke to the Pharmacy about her having Eliquis and plavix on her list and they said they think the last hospital she was in [facility] had told her to stop plavix. Lizbeth did state that patient is suppose to be doing Nicotine patches but she won't stop smoking and she has caught her taking to much of her anxiety medicine . Patient is suppose to take it twice a days and she has been taking more than that stated by Lizbeth . Elaine also stated that Patient take 2 1/2 lt of oxygen daily at home.
--- NOTE | 2024-10-05 11:27 | PC.PHAR ---
Patient is currently on Prednisone and should be on 1 pill a day for that next few days stated by Lizbeth who comes in and takes care of her medication .
--- NOTE | 2024-10-05 15:33 | PM.MISC ---
Miscellaneous Note Note: Seen this morning. Resting up in bed. States she can breathe slightly better however still experiencing shortness of breath. Currently on nasal cannula. Uses a CPAP to sleep at night We will restart patient's home Eliquis atorvastatin Plavix Continue to hold losartan as blood pressure is soft. Blood cultures positive for large gram-positive rods Escalate to vancomycin and Zosyn at this time. Continue azithromycin for atypical coverage
[2024-10-05] MEDS: piperacillin-tazobactam 3.375 GM in sodium chloride 0.9% (plus) 50 ML IV (17:04)
[2024-10-06] VITALS (11 sets, daily range): BP systolic 125–161; BP diastolic 70–91; PULSE 75–98; RESP 17–26; TEMP 36.5–37.1; O2SAT 92–100
[2024-10-06] MEDS: piperacillin-tazobactam 3.375 GM in sodium chloride 0.9% (plus) 50 ML IV ×4 (00:33→23:35)
[2024-10-06 04:09] LABS: Hematocrit 29.1 % (36-47); Hemoglobin 9.30 g/dL (11.27-16.99); Mean Corpuscular HGB Conc 32.0 g/dL (30-55); Mean Corpuscular Hemoglobin 29.4 pg (27-33); Mean Corpuscular Volume 92.1 fl (85-98); Nucleated Red Blood Cells % 0 %; Platelet Count 386 10^3/cmm (157-399); Red Blood Count 3.16 10^6/uL (3.85-5.65); White Blood Count 20.41 10^3/uL (3.29-11.43)
[2024-10-06 04:32] LABS: Alanine Aminotransferase 17 U/L (0-33); Albumin Level 3.6 g/dL (3.5-5.2); Alkaline Phosphatase 74 U/L (35-105); Anion Gap 14.1 (5-19); Aspartate Amino Transferase 14 U/L (0-32); Blood Urea Nitrogen 22 mg/dL (8-23); Calcium 8.4 mg/dL (8.5-10.5); Carbon Dioxide 25 mmol/L (22-29); Chloride 104 mmol/L (98-107); Creatinine Clr Calc Pharmacy 51.3115; Globulin 2.2 g/dL (1.3-4.6); Glucose 115 mg/dL (65-115); Magnesium 2.4 mg/dL (1.7-2.3); Osmolality Calculated 292 mOsm/kg (285-295); Potassium 4.1 mmol/L (3.5-5.1); Sodium 139 mmol/L (136-145); Total Protein 5.8 g/dL (6.6-8.7)
[2024-10-06] MEDS: methylPREDNISolone sod succ 40 mg/mL INJ IVP ×2 (08:25→20:23)
--- NOTE | 2024-10-06 11:28 | PM.PN ---
Subjective Subjective: Seen this morning. No acute events overnight. White count 20,000, hemoglobin 9.3, creatinine 0.8. She states she feels a lot better. Vitals/I&O/Wt Last Vital Signs Temp 98.0 F 10/06/24 07:29 Pulse 98 10/06/24 08:25 Resp 26 H 10/06/24 08:25 BP 161/91 10/06/24 07:29 Pulse Ox 97 10/06/24 08:25 O2 Del Method BiPAP 10/06/24 08:25 O2 Flow Rate 2 10/06/24 01:56 FiO2 40 10/06/24 08:25 10/05/24 10/06/24 10/06/24 22:59 06:59 14:59 Intake Total 1380 / 2100 500 / 2600 Balance 1380 / 2100 500 / 2600 Weight last 48 hrs Weight 49.033 kg Weight 48.761 kg Weight 39.009 kg Physical Exam Narrative: General: Alert oriented x3, patient seen laying in bed appearing comfortable at this time. HEENT: Normocephalic, atraumatic, EOMI, breathing BiPAP. Cardio: Regular rate rhythm, normal S1-S2, Respiratory: Clear to auscultation bilaterally GI: Abdomen soft, nontender, bowel sounds + Extremities: No edema Data 10/06/24 03:12 10/06/24 03:12 Micro: Microbiology 10/04/24 00:16 Blood Culture - Preliminary Blood NEGATIVE TO DATE 10/05/24 18:47 Blood Culture - Preliminary Blood SPECIMEN COLLECTED 10/05/24 18:50 Blood Culture - Preliminary Blood SPECIMEN COLLECTED 10/04/24 23:57 Blood Culture - Preliminary Blood A&P Assessment and plan 1. COPD (chronic obstructive pulmonary disease): Continue antibiotics for associated bronchitis Continue supplemental oxygen Once medically stable patient needs to see a virtual office assistant If we have 1 in house they will follow-up with the patient Will continue to monitor Patient had done remarkably well just with care from the ED and transferring to stepdown unit Patient uses CPAP at home at night with 2 L of oxygen patient should not go to sleep without having a BiPAP here this helped her dramatically 2. Hypoxia: This is the hallmarked of patient's disease Supportive care with BiPAP therapy and oxygen Oxygen therapy with BiPAP is to near resolution Continue to treat and optimize 3. Leukocytosis: No much of any infectious process except for associated bronchitis and hypoxemia These all can give elevated white count because of stressed system Patient is getting antibiotics for associated bronchitis Continue supportive care for this 4. Acute hypoxemic respiratory failure: - Admitted to stepdown unit with BiPAP and improving - Will initiate ceftriaxone and azithromycin for associated bronchitis in the setting of much leukocytosis of 20,000. Continue nebulizing treatments No need for steroid patient does not have any bronchial spasm 5. Lactic acidosis: Lactic acidosis is due to extreme hypoxia - Once patient has been optimized a repeat lactate went down from 7.8 to 1.4 6. Ground glass opacity present on imaging of lung: Groundglass opacity likely due to pulmonary edema from is stressed system Will give one-time Lasix 40 mg IV x 1 only proBNP is elevated at 7000 and this is not all because of any heart failure this is also associated with pulmonary disease You may decide to give more doses of Lasix as by your follow-up and evaluation 7. Pulmonary nodules: Patient once being treated for the acute process of hypoxemic respiratory failure Patient need to follow-up with her virtual office assistant or any virtual office assistant for likely bronc and biopsy Risk factor is long life cigarette smoking for 55 years still actively smoking until just 2 weeks ago when she was admitted to an outside hospital Continue to treat and monitor Plan: 10/06/2024 CT chest from admission shows no evidence of pulmonary embolism. There is mild debris in distal trachea with moderate debris's in the right mainstem bronchus and bronchus intermedius. Interlobular septal thickening and areas of groundglass suggesting pulmonary edema. Diffuse bronchial wall thickening may be related to acute or chronic bronchitis or pulmonary edema. Scattered subpleural pulmonary nodules measuring up to 4 mm. Continue Solu-Medrol 40 twice daily, apixaban 5 twice daily Continue Vanco Zosyn and azithromycin. Will repeat chest x-ray today. She did receive Lasix 40 x 1. Continue current treatment. Blood culture positive for large gram positive rods. Blood cultures repeated 10/05/2024. Recommend ID consult. PDMP PDMP Reviewed: Not Reviewed Attestations Medical Necessity Statement*: Patient who could not breathe for the past 2 weeks had a recent admission to an outside hospital presenting with the same complaints acute hypoxic respiratory failure deserves 2 midnights for evaluation and optimization of care. Diagnoses COPD (chronic obstructive pulmonary disease) J44.9 Hypoxia R09.02 Leukocytosis D72.829 Acute hypoxemic respiratory failure J96.01 Lactic acidosis E87.20 Ground glass opacity present on imaging of lung R91.8 Pulmonary nodules R91.8
--- NOTE | 2024-10-06 11:47 | PHA.VACGOAL ---
Vancomycin Goal - Goal Vancomycin Goal:: 15-20 mg/L Vancomycin Indication:: Pneumonia - Therapy Day of therpy:: Day []of [] . Actual body weight (kg): 108 lb 1.6 oz - Data Labs: WBC 20.41 10^3/uL (3.29-11.43) H 10/06/24 03:12 RBC 3.16 10^6/uL (3.85-5.65) L 10/06/24 03:12 Hgb 9.30 g/dL (11.27-16.99) L 10/06/24 03:12 Hct 29.1 % (36-47) L 10/06/24 03:12 MCV 92.1 fl (85-98) 10/06/24 03:12 MCH 29.4 pg (27-33) 10/06/24 03:12 MCHC 32.0 g/dL (30-55) D 10/06/24 03:12 RDW 16.6 % (12.1-15.1) H 10/06/24 03:12 Sodium 139 mmol/L (136-145) 10/06/24 03:12 Potassium 4.1 mmol/L (3.5-5.1) 10/06/24 03:12 Chloride 104 mmol/L (98-107) 10/06/24 03:12 Carbon Dioxide 25 mmol/L (22-29) 10/06/24 03:12 Anion Gap 14.1 (5-19) 10/06/24 03:12 BUN 22 mg/dL (8-23) 10/06/24 03:12 Creatinine 0.8 mg/dL (0.5-0.9) 10/06/24 03:12 GFR Calculation 71.3 mL/min (90-130) L 10/06/24 03:12 Treatment plan:: new consult Regimen:: 750 G Q24 H
[2024-10-07] VITALS (21 sets, daily range): BP systolic 124–175; BP diastolic 67–97; PULSE 62–114; RESP 13–22; TEMP 36.4–36.9; O2SAT 94–100
[2024-10-07 05:06] LABS: Hematocrit 30.0 % (36-47); Hemoglobin 9.10 g/dL (11.27-16.99); Mean Corpuscular HGB Conc 30.3 g/dL (30-55); Mean Corpuscular Hemoglobin 28.3 pg (27-33); Mean Corpuscular Volume 93.2 fl (85-98); Nucleated Red Blood Cells % 0 %; Platelet Count 353 10^3/cmm (157-399); Red Blood Count 3.22 10^6/uL (3.85-5.65); White Blood Count 16.18 10^3/uL (3.29-11.43)
[2024-10-07 05:37] LABS: Anion Gap 14.1 (5-19); Blood Urea Nitrogen 27 mg/dL (8-23); Calcium 8.5 mg/dL (8.5-10.5); Carbon Dioxide 23 mmol/L (22-29); Chloride 109 mmol/L (98-107); Creatinine Clr Calc Pharmacy 51.8708; Glucose 141 mg/dL (65-115); Magnesium 2.4 mg/dL (1.7-2.3); Osmolality Calculated 301 mOsm/kg (285-295); Potassium 4.1 mmol/L (3.5-5.1); Sodium 142 mmol/L (136-145)
[2024-10-07] MEDS: methylPREDNISolone sod succ 40 mg/mL INJ IVP ×3 (08:14→19:59)
[2024-10-07] MEDS: piperacillin-tazobactam 3.375 GM in sodium chloride 0.9% (plus) 50 ML IV ×3 (08:15→23:56)
--- NOTE | 2024-10-07 08:47 | USCV_ITS ---
Etelvina Evans Age: 69 Gender: F : 1955 Exam Date: 10/07/2024 10:03 Ordering Phys: Shan Mar MD Technologist: Exam [place] [facility] [place]: cp chf sob BP: 175 / 97 HR: 71 Rhythm: Sinus Technical Quality: Adequate MEASUREMENTS (Male / Female) Normal Values 2D ECHO LV Diastolic Diameter PLAX 4.6 cm 4.2 - 5.9 / 3.9 - 5.3 cm IVS Diastolic Thickness 1.0 cm 0.6 - 1.0 / 0.6 - 0.9 cm IVS Systolic Thickness 1.6 cm LVPW Diastolic Thickness 1.0 cm 0.6 - 1.0 / 0.6 - 0.9 cm LVPW Systolic Thickness 1.3 cm LVOT Diameter 2.0 cm LV Ejection Fraction 2D Teich 62.4 % LV Ejection Fraction MOD 4C 60.0 % LV Ejection Fraction MOD 2C 67.1 % LV Ejection Fraction 2C AL 66.3 % LA Diameter 3.3 cm RA Systolic Volume 4C AL 25.6 ml RA Systolic Volume 4C MOD 23.6 ml Aorta at Sinotubular Diameter 2.3 cm IVC Diameter 2.1 cm M-MODE LA Ao Ratio MM 1.7 AV Cusp Separation MM 1.5 cm DOPPLER AV Peak Velocity 131.0 cm/s LVOT Peak Velocity 104.0 cm/s AV Area Cont Eq vti 3.0 cm squared AV Area Cont Eq pk 2.5 cm squared MV Peak Velocity 113.0 cm/s MV Area PHT 3.8 cm squared Mitral E to A Ratio 1.9 TR Peak Velocity 271.0 cm/s TR Peak Gradient 29.4 mmHg TV Peak E Velocity 307.0 cm/s PV Peak Velocity 101.0 cm/s FINDINGS Left Ventricle Normal left ventricular size with a borderline low EF of 50-55 % (visual).. Moderate hypokinesis of the LV apex.Grade III/IV diastolic dysfunction (restrictive filling pattern), severely elevated filling pressures. Right Ventricle Normal right ventricular size and systolic function. Right Atrium Normal right atrial size. Left Atrium Mildly increased left atrial size. Mitral Valve Mild to moderate mitral valve regurgitation. Aortic Valve Thickened aortic valve. Moderate aortic valve calcification. Tricuspid Valve Trace tricuspid valve regurgitation. Estimated pulmonary artery peak systolic pressure 32 mmHg. This could be an underestimation because of the poor Doppler signals Pulmonic Valve Pulmonic valve not well visualized. Pericardium No pericardial effusion. Aorta Normal aortic annulus size. IVC Normal inferior vena cava. CONCLUSIONS Normal left ventricular size with a borderline low EF of 50-55 % (visual).. Moderate hypokinesis of the LV apex.Grade III/IV diastolic dysfunction (restrictive filling pattern), severely elevated filling pressures. Mildly increased left atrial size. Mild to moderate mitral valve regurgitation. Thickened aortic valve. Moderate aortic valve calcification. Trace tricuspid valve regurgitation. Estimated pulmonary artery peak systolic pressure Estimated pulmonary artery peak systolic pressure 32 mmHg. This could be an underestimation because of the poor Doppler signals. No similar previous studies are available for comparison Dr Aleja Ulloa MD [facility] (Electronically Signed) Final Date: 07 October 2024 17:02 S
[2024-10-07 09:34] LABS: Estmated Average Glucose 114; Hemoglobin A1C 5.6 % (4.0-6.0)
[2024-10-07 09:52] LABS: Procalcitonin 0.05 ng/mL (0-0.5); Thyroid Stimulating Hormone 0.29 uIU/mL (0.27-4.20); Vitamin B12 370 pg/mL (232-1245)
[2024-10-07 10:03] LABS: Iron 24 ug/dL (37-145); Total Iron Binding Capacity 305 mcg/dl; Unsaturated Iron Binding 281 ug/dL (112-347)
--- NOTE | 2024-10-07 14:57 | P.PN_ITS ---
Subjective 2 Subjective: Hospital course, labs appreciated. Today morning patient seen in acute respiratory failure. Patient became extremely short of breath after coming back from bedside commode. Requiring BiPAP ventilation. After being on BiPAP saturating 98%. States feeling slightly better. Denies any nausea, vomiting, headache. Otherwise hemodynamically stable and afebrile. Vitals/I&O/Wt Last Vital Signs Temp 97.8 F 10/07/24 07:28 Pulse 77 10/07/24 11:25 Resp 20 H 10/07/24 11:25 BP 124/74 10/07/24 11:25 Pulse Ox 100 10/07/24 11:25 O2 Del Method BiPAP 10/07/24 11:21 O2 Flow Rate 2 10/07/24 07:43 FiO2 28 10/07/24 11:21 10/06/24 10/07/24 10/07/24 22:59 06:59 14:59 Intake Total 780 / 830 50 / 880 410 / 410 Output Total 300 / 300 100 / 100 Balance 780 / 830 -250 / 580 310 / 310 Weight last 48 hrs Weight 50.349 kg Weight 49.033 kg Physical Exam 2 Narrative: General: Alert oriented x3, in distress because of difficulty in breathing. Currently on BiPAP. HEENT: Normocephalic, atraumatic, EOMI, breathing BiPAP. Cardio: Regular rate rhythm, normal S1-S2, Respiratory: Bilateral bronchial breath sounds all over lung hernandez with occasional rhonchi, coarse structure present in left middle and lower zone, decreased air entry in right lower zone GI: Abdomen soft, nontender, bowel sounds + Extremities: No edema Data 10/07/24 04:44 10/07/24 04:44 Micro: Microbiology 10/05/24 18:47 Blood Culture - Preliminary Blood NEGATIVE TO DATE 10/05/24 18:50 Blood Culture - Preliminary Blood NEGATIVE TO DATE 10/04/24 23:57 Blood Culture - Preliminary Blood Bacillus sp not b. anthracis A&P Assessment and plan 1. Acute hypoxemic respiratory failure: Insetting of COPD exacerbation. Oxygen supplementation keeping saturation over 88%. CTA done on admission negative for PE with mild concerns for CHF. Oral Lasix 20 mg daily. Check echocardiogram. High concerns for right-sided heart failure. 2. COPD (chronic obstructive pulmonary disease): Change DuoNeb to every 4 hours. Add Pulmicort twice daily. Increase Solu- Medrol 40 mg 3 times daily. Aggressive pulmonary toilet with I-S. Continue with supplementation with BiPAP for now. Will transition to nasal cannula. If not improving in next few hours we will plan for ABG. 3. Leukocytosis: Given acute illness for now we will continue with empiric IV antibiotics. Patient currently on empiric vancomycin and Zosyn. Azithromycin for atypical coverage. Check MRSA swab. If negative will discontinue vancomycin. Sputum culture awaited. Check respiratory viral panel. 4. Lactic acidosis: 5. Ground glass opacity present on imaging of lun. Pulmonary nodules: Patient once being treated for the acute process of hypoxemic respiratory failure Patient need to follow-up with her irrigation flume layer or any irrigation flume layer for likely bronc and biopsy Risk factor is long life cigarette smoking for 55 years still actively smoking until just 2 weeks ago when she was admitted to an outside hospital Continue to treat and monitor Plan: Bacteremia: Blood cultures from admission positive for bacillus not anthracis. Most likely contaminant. Repeat blood cultures sent on 10/05 so far negative. Continue with empiric IV antibiotic as above. Continue with chronic home medications including duloxetine, Plavix, Eliquis, statin. Holding off on home dose of losartan. Full code Cardiac diet Protonix for PUD prophylaxis Eliquis was sufficient for DVT prophylaxis. PDMP PDMP Reviewed: Not Reviewed Attestations 2 Medical Necessity Statement*: Requires further hospitalization for management of acute hypoxic respiratory failure in setting of COPD exacerbation Diagnoses Acute hypoxemic respiratory failure J96.01 COPD (chronic obstructive pulmonary disease) J44.9 Leukocytosis D72.829 Lactic acidosis E87.20 Ground glass opacity present on imaging of lung R91.8 Pulmonary nodules R91.8
--- NOTE | 2024-10-07 14:57 | XRR_ITS ---
PROCEDURE INFORMATION: Exam: XR Chest Exam date and time: 10/07/2024 3:00 PM Age: 69 years old Clinical indication: Condition or disease; Lung condition and disease; Respiratory failure; Status not specified; Additional info: Resp failure TECHNIQUE: Imaging protocol: Radiologic exam of the chest. Views: 1 view. COMPARISON: CT angio chest PE protcl [id number] 10/05/2024 1:30 AM FINDINGS: Lungs: There is no consolidation. Pleural spaces: There is no pleural effusion or pneumothorax. Heart/Mediastinum: There is mild enlargement of the cardiac silhouette. Bones/joints: Moderate thoracolumbar scoliosis. No acute osseous findings. XR/XR chest 1V portable [id number] IMPRESSION: No acute findings.
[2024-10-07] MEDS: morphine 4 mg/mL SDV 1 mL 2 MG IVP (20:00)
[2024-10-07 20:41] LABS: Coronavirus 229E,HKU1,NL63,OC4 Not Detected (NOT DETECT); Parainfluenza Virus Type 1 Not Detected (NOT DETECT); Parainfluenza Virus Type 2 Not Detected (NOT DETECT); Parainfluenza Virus Type 3 Not Detected (NOT DETECT); Parainfluenza Virus Type 4 Not Detected (NOT DETECT); SARS-COV-2 Not Detected (NOT DETECT)
[2024-10-08] VITALS (20 sets, daily range): BP systolic 92–174; BP diastolic 70–86; PULSE 69–88; RESP 16–20; TEMP 36.3–36.7; O2SAT 95–100
[2024-10-08] MEDS: morphine 4 mg/mL SDV 1 mL 2 MG IVP ×2 (00:54→14:01)
[2024-10-08 03:56] LABS: Hematocrit 28.8 % (36-47); Hemoglobin 9.20 g/dL (11.27-16.99); Mean Corpuscular HGB Conc 31.9 g/dL (30-55); Mean Corpuscular Hemoglobin 29.4 pg (27-33); Mean Corpuscular Volume 92.0 fl (85-98); Nucleated Red Blood Cells % 0 %; Platelet Count 331 10^3/cmm (157-399); Red Blood Count 3.13 10^6/uL (3.85-5.65); White Blood Count 12.49 10^3/uL (3.29-11.43)
[2024-10-08 04:16] LABS: Cholesterol 174 mg/dL (0-200); HDL Cholesterol 77 mg/dL (60-100); Magnesium 2.3 mg/dL (1.7-2.3); Triglycerides 85 mg/dL (0-150); VLDL Cholestrol Calculation 17 mg/dL (0-30)
[2024-10-08 04:22] LABS: Alanine Aminotransferase 19 U/L (0-33); Albumin Level 3.6 g/dL (3.5-5.2); Alkaline Phosphatase 80 U/L (35-105); Anion Gap 15.1 (5-19); Aspartate Amino Transferase 12 U/L (0-32); Blood Urea Nitrogen 26 mg/dL (8-23); Calcium 8.2 mg/dL (8.5-10.5); Carbon Dioxide 24 mmol/L (22-29); Chloride 107 mmol/L (98-107); Creatinine Clr Calc Pharmacy 51.8708; Globulin 2.3 g/dL (1.3-4.6); Glucose 125 mg/dL (65-115); Osmolality Calculated 300 mOsm/kg (285-295); Potassium 4.1 mmol/L (3.5-5.1); Sodium 142 mmol/L (136-145); Total Protein 5.9 g/dL (6.6-8.7)
[2024-10-08] MEDS: methylPREDNISolone sod succ 40 mg/mL INJ IVP ×2 (08:17→20:21)
[2024-10-08] MEDS: piperacillin-tazobactam 3.375 GM in sodium chloride 0.9% (plus) 50 ML IV ×2 (08:20→16:49)
--- NOTE | 2024-10-08 14:18 | P.PN_ITS ---
Subjective 2 Subjective: No acute events overnight. Today morning patient seen laying comfortably in bed. Overnight was on BiPAP for 4 hours. Currently on room air. States feeling better than yesterday. Does complain of feeling anxious. States at home she takes Xanax 1 mg 3 times a day. Vitals/I&O/Wt Last Vital Signs Temp 97.7 F 10/08/24 11:38 Pulse 88 10/08/24 11:38 Resp 20 H 10/08/24 14:01 BP 174/86 10/08/24 11:38 Pulse Ox 95 10/08/24 14:01 O2 Del Method Room Air 10/08/24 12:35 O2 Flow Rate 2 10/07/24 07:43 FiO2 28 10/08/24 03:13 10/07/24 10/08/24 10/08/24 22:59 06:59 14:59 Intake Total 300 / 710 50 / 760 480 / 480 Output Total 700 / 800 Balance 300 / 610 -650 / -40 480 / 480 Weight last 48 hrs Weight 48.081 kg Weight 50.349 kg Physical Exam 2 Narrative: General: Alert oriented x3, in distress because of difficulty in breathing. Currently on BiPAP. HEENT: Normocephalic, atraumatic, EOMI, breathing BiPAP. Cardio: Regular rate rhythm, normal S1-S2, Respiratory: Bilateral bronchial breath sounds all over lung hernandez with occasional rhonchi, coarse structure present in left middle and lower zone, decreased air entry in right lower zone GI: Abdomen soft, nontender, bowel sounds + Extremities: No edema Data 10/08/24 03:26 10/08/24 03:26 Micro: Microbiology 10/04/24 23:57 Blood Culture - Final Blood Bacillus sp not b. anthracis A&P Assessment and plan 1. Acute hypoxemic respiratory failure: Insetting of COPD exacerbation. Oxygen supplementation keeping saturation over 88%. CTA done on admission negative for PE with mild concerns for CHF. Oral Lasix 20 mg daily. Check echocardiogram. High concerns for right-sided heart failure. 2. COPD (chronic obstructive pulmonary disease): Change DuoNeb to every 4 hours. Add Pulmicort twice daily. Increase Solu- Medrol 40 mg 3 times daily. Aggressive pulmonary toilet with I-S. Continue with supplementation with BiPAP for now. Will transition to nasal cannula. If not improving in next few hours we will plan for ABG. 3. Leukocytosis: Given acute illness for now we will continue with empiric IV antibiotics. Patient currently on empiric vancomycin and Zosyn. Azithromycin for atypical coverage. Check MRSA swab. If negative will discontinue vancomycin. Sputum culture awaited. Check respiratory viral panel. 4. Lactic acidosis: 5. Ground glass opacity present on imaging of lun. Pulmonary nodules: Patient once being treated for the acute process of hypoxemic respiratory failure Patient need to follow-up with her testboard operator or any testboard operator for likely bronc and biopsy Risk factor is long life cigarette smoking for 55 years still actively smoking until just 2 weeks ago when she was admitted to an outside hospital Continue to treat and monitor Plan: Bacteremia: Blood cultures from admission positive for bacillus not anthracis. Most likely contaminant. Repeat blood cultures sent on 10/05 so far negative. Continue with empiric IV antibiotic as above. Continue with chronic home medications including duloxetine, Plavix, Eliquis, statin. Holding off on home dose of losartan. Full code Cardiac diet Protonix for PUD prophylaxis Eliquis was sufficient for DVT prophylaxis. Plan for the day: Oxygen supplementation keeping saturation over 88%. Continue with nebulization treatment with Pulmicort twice daily, DuoNeb every 4 hours. Patient will most likely need to continue nebulization as an outpatient as well. Wean Solu-Medrol to 40 mg twice daily. Appreciate echocardiogram. Continue with Lasix 20 mg oral daily. Fluid restriction to less than 1500 cc. Continue with home dose of Plavix, statin, Eliquis. Continue with Xanax 0.5 mg 3 times daily as needed for now. Sputum culture still not collected. Follow-up blood cultures. Bacterial antigen pending. Continue with IV vancomycin and Zosyn along with azithromycin for now. MRSA swab negative will discontinue vancomycin. Add BuSpar 10 mg twice daily. Continue with home dose of Cymbalta 60 mg twice daily. Discharge plan: Plan to discharge home after home O2 evaluation in next 24 hours patient remained stable on steroid taper and oral antibiotics along with nebulization treatment PDMP PDMP Reviewed: Not Reviewed Attestations 2 Medical Necessity Statement*: Requires further hospitalization for management of respiratory distress due to COPD exacerbation, anxiety Diagnoses Acute hypoxemic respiratory failure J96.01 COPD (chronic obstructive pulmonary disease) J44.9 Leukocytosis D72.829 Lactic acidosis E87.20 Ground glass opacity present on imaging of lung R91.8 Pulmonary nodules R91.8
--- NOTE | 2024-10-08 17:46 | PC.NURSE ---
Notified Dr. Mar patient states buspar makes her feel mental, not right and could careless what you say. Dr. Mar gave verbal orders to discontinue the buspar.
[2024-10-08] MEDS: HYDROcodone-acetaminophen 5-325 mg Tablet 1 TAB PO (23:27)
[2024-10-09] VITALS (9 sets, daily range): BP systolic 138–170; BP diastolic 81–90; PULSE 70–79; RESP 14–17; TEMP 36.3–37.1; O2SAT 88–100
[2024-10-09] MEDS: piperacillin-tazobactam 3.375 GM in sodium chloride 0.9% (plus) 50 ML IV ×2 (00:24→07:55)
[2024-10-09 05:20] LABS: Hematocrit 29.6 % (36-47); Hemoglobin 9.10 g/dL (11.27-16.99); Mean Corpuscular HGB Conc 30.7 g/dL (30-55); Mean Corpuscular Hemoglobin 28.4 pg (27-33); Mean Corpuscular Volume 92.5 fl (85-98); Nucleated Red Blood Cells % 0 %; Platelet Count 319 10^3/cmm (157-399); Red Blood Count 3.20 10^6/uL (3.85-5.65); White Blood Count 9.73 10^3/uL (3.29-11.43)
[2024-10-09 05:38] LABS: Alanine Aminotransferase 18 U/L (0-33); Albumin Level 3.7 g/dL (3.5-5.2); Alkaline Phosphatase 72 U/L (35-105); Anion Gap 13.9 (5-19); Aspartate Amino Transferase 13 U/L (0-32); Blood Urea Nitrogen 30 mg/dL (8-23); Calcium 8.2 mg/dL (8.5-10.5); Carbon Dioxide 23 mmol/L (22-29); Chloride 106 mmol/L (98-107); Creatinine Clr Calc Pharmacy 50.9069; Globulin 2.2 g/dL (1.3-4.6); Glucose 117 mg/dL (65-115); Osmolality Calculated 295 mOsm/kg (285-295); Potassium 3.9 mmol/L (3.5-5.1); Sodium 139 mmol/L (136-145); Total Protein 5.9 g/dL (6.6-8.7)
[2024-10-09 05:45] LABS: Magnesium 2.5 mg/dL (1.7-2.3)
[2024-10-09] MEDS: methylPREDNISolone sod succ 40 mg/mL INJ IVP (08:01)
--- NOTE | 2024-10-09 09:10 | P.DS_ITS ---
Discharge Providers Date of Admission: 10/05/24 05:07 Date of Discharge: October 09, 2024 Attending Provider at Admission: Shani Araya MD Attending Provider at Discharge: Shan Mar MD Diagnoses at Discharge Discharge Diagnosis 1. Acute hypoxemic respiratory failure: 2. COPD (chronic obstructive pulmonary disease): 3. Leukocytosis: 4. Lactic acidosis: 5. Ground glass opacity present on imaging of lun. Pulmonary nodules: Reason for Visit Reason for Visit: cant breathe Brief History: As per HPI: Etelvina Evans is a 69 year old female with medical history significant for COPD and pulmonary disease on a lifelong cigarette smoker who has smoked a minimum of a pack of cigarettes a day for 55 years and still actively smoking until only 2 weeks ago. Patient could not breathe and had to be admitted to an outside hospital 2 weeks ago and then was discharged after being treated for pulmonary disease with shortness of breath. Patient is on chronic home oxygen. Patient represented to the ED here because she could not breathe pulse oximetry at presentation was 60%. Patient was very hypoxic and had a lactate of 7.8 and a repeat lactate later came down to a 1.4. I asked for CT of the chest upon being consulted about the patient. CT of the chest did not show any PE but noted pulmonary disease with pulmonary nodules and ground glass opacity liken pulmonary edema. proBNP was noted to be 7179. Patient did remarkably well in the ED with BiPAP and was admitted to stepdown unit room 105 Patient naturally is on nightly oxygen at 2 L at home and had been on BiPAP at 40% FiO2. Hospital Course Hospital Course Patient was turned to the hospital further evaluation and management of hypoxia in setting of COPD exacerbation. There was a concern for mild pneumonia due to leukocytosis eventually started on broad-spectrum antibiotics for community- acquired pneumonia. Patient gradually improved with steroids and nebulization treatment. CT chest was done which showed no PE but was concerning for bronchitis. On admission 1 out of 4 blood cultures were positive for bacillus which was thought to be contaminant. Repeat blood cultures henceforth has been negative. Patient responded to treatment and is back to her baseline oxygen supplementation being on room air at rest requiring oxygen only on exertion. She has been discharged in medically stable condition on nebulization treatment and steroid taper with oral antibiotics for 5 more days. Physical Exam Narrative: General: Alert oriented x3, in distress because of difficulty in breathing. Currently on BiPAP. HEENT: Normocephalic, atraumatic, EOMI, breathing BiPAP. Cardio: Regular rate rhythm, normal S1-S2, Respiratory: Bilateral bronchial breath sounds all over lung hernandez with occa sional rhonchi, coarse structure present in left middle and lower zone, decreased air entry in right lower zone GI: Abdomen soft, nontender, bowel sounds + Extremities: No edema Discharge Data Studies Completed and Pending Completed Studies During Hospitalization Category Date Time Status CTA chest [CT angio chest PE protcl [id number]] Stat Cat Scan 10/05/24 01:14 Completed XR chest 1V portable [id number] Routine Exams 10/07/24 14:57 Completed XR chest 1V portable [id number] Stat Exams 10/04/24 23:54 Completed CV. echo complete* [id number] Routine Ultrasound 10/07/24 08:47 Completed Pending at discharge Category Date Time Status Bacterial Antigen Stat Lab 10/07/24 08:46 Ordered Blood Culture Stat Lab 10/04/24 23:57 Results Blood Culture Stat Lab 10/05/24 18:47 Results MAG [Magnesium] AM LABS Lab 10/10/24 04:00 Ordered MRSA PCR OZH (swab) Routine Lab 10/07/24 22:55 Ordered Sputum Culture and Gram Stain Stat Lab 10/05/24 15:31 Uncollected Vancomycin Trough Timed Lab 10/09/24 14:00 Ordered Radiology Impressions Chest CTA 10/05/24 01:14 IMPRESSION: 1. No evidence of pulmonary embolism. 2. Mild debris in the distal trachea with moderate debris in the right mainstem bronchus and bronchus intermedius. 3. Interlobular septal thickening and areas of ground-glass suggesting pulmonary edema. 4. Diffuse bronchial wall thickening may be related to acute or chronic bronchitis or pulmonary edema. 5. Scattered subpleural pulmonary nodules measuring up to 4 mm. Optional follow-up CT chest in 6-12 months per Fleischner criteria. COMMENTS: 1. Consistent with the [employer]'s Incidental Findings Committee white paper (J Am Ray Radiol 2018): Any incidental renal lesion less than 1 cm or classified as too small to characterize, or any incidental cystic renal lesion characterized as simple-appearing, is likely benign. No follow-up imaging is recommended for these lesions per consensus recommendations based on imaging criteria. 2. The presence of pulmonary emphysema on CT is an independent risk factor for lung cancer. In the absence of a history or active diagnosis of lung cancer, it is recommended that this patient with emphysema be evaluated for enrollment in a low dose CT lung cancer screening program. Chest X-Ray 10/07/24 14:57 IMPRESSION: No acute findings. Microbiology 10/04/24 23:57 Blood Blood Culture - Final Bacillus sp not b. anthracis 10/05/24 18:47 Blood Blood Culture - Preliminary NEGATIVE TO DATE 10/05/24 18:50 Blood Blood Culture - Preliminary NEGATIVE TO DATE 10/04/24 00:16 Blood Blood Culture - Preliminary NEGATIVE TO DATE Laboratory Results WBC 9.73 10^3/uL (3.29-11.43) 10/09/24 04:42 RBC 3.20 10^6/uL (3.85-5.65) L 10/09/24 04:42 Hgb 9.10 g/dL (11.27-16.99) L 10/09/24 04:42 Hct 29.6 % (36-47) L 10/09/24 04:42 MCV 92.5 fl (85-98) 10/09/24 04:42 MCH 28.4 pg (27-33) 10/09/24 04:42 MCHC 30.7 g/dL (30-55) 10/09/24 04:42 RDW 16.6 % (12.1-15.1) H 10/09/24 04:42 Plt Count 319 10^3/cmm (157-399) 10/09/24 04:42 MPV 9.9 fL (7.4-10.4) 10/09/24 04:42 Neut % (Auto) 92.7 % 10/09/24 04:42 Lymph % (Auto) 3.1 % 10/09/24 04:42 Gem % (Auto) 3.2 % 10/09/24 04:42 Eos % (Auto) 0.0 % 10/09/24 04:42 Baso % (Auto) 0.0 % 10/09/24 04:42 Neut # (Auto) 9.02 10^3/uL (1.8-7.7) H 10/09/24 04:42 Lymph # (Auto) 0.3 10^3/uL (0.8-4.8) L 10/09/24 04:42 Gem # (Auto) 0.3 10^3/uL (0.2-0.9) 10/09/24 04:42 Eos # (Auto) 0.0 10^3/uL (0.0-0.8) 10/09/24 04:42 Baso # (Auto) 0.0 10^3/uL (0.0-0.1) 10/09/24 04:42 Nucleated RBC % (auto) 0 % 10/09/24 04:42 Nucleated RBCs # 0.0 /100WBC 10/09/24 04:42 PT 13.80 SECONDS (12.1-14.9) 10/04/24 23:57 INR 0.99 (0.8-1.2) 10/04/24 23:57 APTT 26.5 SECONDS (23.9-36.7) 10/04/24 23:57 Specimen Type Arterial 10/05/24 00:04 Sample Site Brachial, left 10/05/24 00:04 ABG pH 7.29 (7.35-7.45) L 10/05/24 00:04 ABG pCO2 42.4 mmHg (35-45) 10/05/24 00:04 ABG pO2 85.3 mmHg (80.0-100.0) 10/05/24 00:04 ABG PO2/FiO2 Ratio 213 10/05/24 00:04 ABG HCO3 20.4 mmol/L (22-26) L 10/05/24 00:04 ABG Base Excess -5.9 mmol/L (-2.0-2.0) L 10/05/24 00:04 [place] Test Pos 10/05/24 00:04 Hematocrit 34.6 % (37-47) L 10/05/24 00:04 O2 Delivery Device Bipap 10/05/24 00:04 FiO2 40.0 % 10/05/24 00:04 Crop Setting Out Machine Operator ID Bd 10/05/24 00:04 Sodium 139 mmol/L (136-145) 10/09/24 04:42 Potassium 3.9 mmol/L (3.5-5.1) 10/09/24 04:42 Chloride 106 mmol/L (98-107) 10/09/24 04:42 Carbon Dioxide 23 mmol/L (22-29) 10/09/24 04:42 Anion Gap 13.9 (5-19) 10/09/24 04:42 BUN 30 mg/dL (8-23) H 10/09/24 04:42 Creatinine 0.7 mg/dL (0.5-0.9) 10/09/24 04:42 GFR Calculation 83.2 mL/min (90-130) L 10/09/24 04:42 Glucose 117 mg/dL (65-115) H 10/09/24 04:42 Estimat Average Glucose 114 10/07/24 04:44 Hemoglobin A1c 5.6 % (4.0-6.0) 10/07/24 04:44 Calculated Osmolality 295 mOsm/kg (285-295) 10/09/24 04:42 Lactic Acid 7.8 mmol/L (0.5-2.2) H* 10/04/24 23:57 Lactic Acid (Sepsis) 1.4 mmol/L (0.5-2.2) 10/05/24 03:30 Calcium 8.2 mg/dL (8.5-10.5) L 10/09/24 04:42 Phosphorus 3.3 mg/dL (2.5-4.5) 10/06/24 03:12 Magnesium 2.5 mg/dL (1.7-2.3) H 10/09/24 04:42 Iron 24 ug/dL (37-145) L 10/07/24 04:44 TIBC 305 mcg/dl 10/07/24 04:44 % Saturation 7.8 % (20-50) L 10/07/24 04:44 Unsat Iron Binding 281 ug/dL (112-347) 10/07/24 04:44 Total Bilirubin 0.3 mg/dL (0.15-1.2) 10/09/24 04:42 AST 13 U/L (0-32) 10/09/24 04:42 ALT 18 U/L (0-33) 10/09/24 04:42 Alkaline Phosphatase 72 U/L (35-105) 10/09/24 04:42 Troponin T Baseline 25 ng/L (0-10) H 10/04/24 23:57 Troponin T 120 Minute 26.99 ng/L (0-10) H 10/05/24 01:54 Delta Troponin T 1.99 ABS# (0-10) 10/05/24 01:54 Troponin T Hi Sens 6Hr 28.76 ng/L (0-10) H 10/05/24 05:42 Troponin T Hi Sens 6Hr Delta 3.76 ng/L (0-12) 10/05/24 05:42 NT-Pro-B Natriuret Pep 7179 pg/mL (0-125) H 10/04/24 23:57 Total Protein 5.9 g/dL (6.6-8.7) L 10/09/24 04:42 Albumin 3.7 g/dL (3.5-5.2) 10/09/24 04:42 Globulin 2.2 g/dL (1.3-4.6) 10/09/24 04:42 Triglycerides 85 mg/dL (0-150) 10/08/24 03:26 Cholesterol 174 mg/dL (0-200) 10/08/24 03:26 LDL Cholesterol, Calc 80 mg/dL (50-129) 10/08/24 03:26 Total VLDL Cholesterol 17 mg/dL (0-30) 10/08/24 03:26 HDL Cholesterol 77 mg/dL (60-100) 10/08/24 03:26 Cholesterol/HDL Ratio 2.26 mg/dL (0.0-4.40) 10/08/24 03:26 Vitamin B12 370 pg/mL (232-1245) 10/07/24 04:44 Folate 8.1 ng/mL (4.8-37.3) 10/08/24 03:26 Procalcitonin 0.05 ng/mL (0-0.5) 10/07/24 04:44 TSH 0.29 uIU/mL (0.27-4.20) 10/07/24 04:44 Nasal MRSA (PCR) Cancelled 10/07/24 18:33 Adenovirus (PCR) Not detected (NOT DETECT) 10/07/24 18:33 C. pneumoniae DNA (PCR) Not detected (NOT DETECT) 10/07/24 18:33 Coronavirus 229E (PCR) Not detected (NOT DETECT) 10/07/24 18:33 Human Metapneumovir PCR Not detected (NOT DETECT) 10/07/24 18:33 Influenza A (H1) PCR Not detected (NOT DETECT) 10/07/24 18:33 Influenza A (PCR) Negative (Negative) 10/05/24 00:01 Influ A (H1/09) PCR Not detected (NOT DETECT) 10/07/24 18:33 Influenza A (H3) PCR Not detected (NOT DETECT) 10/07/24 18:33 Influenza Type A (PCR) Not detected (NOT DETECT) 10/07/24 18:33 Influenza Type B (PCR) Not detected (NOT DETECT) 10/07/24 18:33 M. pneumoniae (PCR) Not detected (NOT DETECT) 10/07/24 18:33 Parainfluenza 1 (PCR) Not detected (NOT DETECT) 10/07/24 18:33 Parainfluenza 2 (PCR) Not detected (NOT DETECT) 10/07/24 18:33 Parainfluenza 3 (PCR) Not detected (NOT DETECT) 10/07/24 18:33 Parainfluenza 4 (PCR) Not detected (NOT DETECT) 10/07/24 18:33 RSV (PCR) Negative (Negative) 10/05/24 00:01 RSV Type A (PCR) Not detected (NOT DETECT) 10/07/24 18:33 RSV Type B (PCR) Not detected (NOT DETECT) 10/07/24 18:33 Entero/Rhino (PCR) Not detected (NOT DETECT) 10/07/24 18:33 SARS-CoV-2 (PCR) Not detected (NOT DETECT) 10/07/24 18:33 Vitals Last Vital Signs Temp 98.7 F 10/09/24 04:00 Pulse 74 10/09/24 08:00 Resp 16 10/09/24 08:00 BP 138/81 10/09/24 04:00 Pulse Ox 88 L 10/09/24 08:20 O2 Del Method Nasal Cannula 10/09/24 08:00 O2 Flow Rate 2 10/09/24 08:00 FiO2 28 10/08/24 03:13 Discharge Plan Discharge Patient Disposition: Home Condition: Stable Prescriptions: New prednisone 10 mg tablet See Taper PO DIRECTED Qty: 42 0RF Taper: predniSONE 60-10 60 mg Daily for 2 Days and 0 Hour 50 mg Daily for 2 Days and 0 Hour 40 mg Daily for 2 Days and 0 Hour 30 mg Daily for 2 Days and 0 Hour 20 mg Daily for 2 Days and 0 Hour 10 mg Daily for 2 Days and 0 Hour Rx Instructions: see taper instructions levofloxacin 750 mg tablet 750 mg PO Q24H 5 Days Qty: 5 0RF amoxicillin-pot clavulanate 875-125 mg tablet 1 tab PO BID 5 Days Qty: 10 0RF Continued atorvastatin 40 mg Tablet 40 mg PO DAILY nicotine 14 mg/24 hr Patch 24 Hour 1 patch TRANSDERMAL DAILY tizanidine 4 mg Tablet 4 mg PO Q8H PRN (Reason: muscle relaxer) losartan 25 mg Tablet 12.5 mg PO DAILY nitroglycerin 0.4 mg Tablet, Sublingual 0.4 mg SUBLINGUAL Q5M PRN (Reason: chest pain ) Rx Instructions: do not exceed 3 doses per episode bumetanide 1 mg Tablet 1 mg PO DAILY umeclidinium-vilanterol [Anoro Ellipta] 62.5-25 mcg/actuation Blister With Device 1 inh INHALATION DAILY alprazolam 1 mg Tablet 1 mg PO BID clopidogrel 75 mg Tablet 75 mg PO DAILY pantoprazole [Protonix] 40 mg Tablet,Delayed Release (Dr/Ec) 40 mg PO DAILY duloxetine 60 mg Capsule,Delayed Release(Dr/Ec) 60 mg PO BID budesonide-formoterol [Symbicort] 160-4.5 mcg/actuation Hfa Aerosol Inhaler 2 puff INHALATION BID Eliquis 5 mg Tablet 5 mg PO BID Changed ipratropium-albuterol 0.5 mg-3 mg(2.5 mg base)/3 mL Solution For Nebulization 3 ml INHALATION QID 15 Days Qty: 90 0RF Discontinued celecoxib 200 mg Capsule 200 mg PO DAILY Rx Instructions: with food prednisone 10 mg Tablet 10 mg PO DIRECTED Rx Instructions: take 3 tablets byy mouth for 3 days , then take 2 tablets by mouth daily for 3 days , tehn take 1 tablet by mouth for 3days carvedilol 3.125 mg Tablet 3.125 mg PO Q12H Rx Instructions: must administer with a meal/food Discharge Order = DC NOW: Discharge Order (Routine); Ordered 10/09/24 Ordered By: Shan Mar Referrals: [facility] [Other] - 4-7 days Referral Note: We attempted to call to schedule this appointment for you but there was no answer. Please call to schedule this appointment as soon as possible Patient Instructions: Prednisone (By mouth), Amoxicillin/Clavulanate Potassium (By mouth), Levofloxacin (By mouth), COPD Stoplight, Opioid Safety, Patient Portal & Cindy Instructions Discharge Attestations Time Spent in Discharge Care*: greater than 30 min Specific Discharge Activities: educating patient, educating and/or supporting family/caregiver, discussing with pcp/other providers, discussing with supervisor case loading/social workers/dc planners, documenting/other paperwork and evaluating patient/reviewing data Status at Discharge: Cognitive status at discharge: cognitively intact , Behavioral status at discharge: cooperative , Functional status at discharge: independent ambulation , Overall status at discharge: patient is back to baseline Quality Metrics Clinical Quality Measures [ No reported AMI, CVA or VTE this stay] Coding Level of Care Code 08758 Total time (in minutes) for Discharge: 65 Diagnoses Acute hypoxemic respiratory failure J96.01 COPD (chronic obstructive pulmonary disease) J44.9 Leukocytosis D72.829 Lactic acidosis E87.20 Ground glass opacity present on imaging of lung R91.8 Pulmonary nodules R91.8
--- NOTE | 2024-10-09 14:33 | PC.NURSE ---
Discussed discharge with patient. Discussed follow up appointments, all medications, and explained COPD stoplight. All questions answered for patient. Verbalized understanding. Patient was waiting for to arrive with oxygen.
== END 2024-10-09 12:59 | disposition home or self-care (01) | DRG 189 ==
LOC: ER 10-05 03:08 → CSU 10-05 05:11 → MEDSURG 10-08 11:21
PROVIDERS: Internal Medicine; Admitting Provider Internal Medicine; Emergency Provider Student in an Organized Health Care Education/Training Program; Visit Provider Student in an Organized Health Care Education/Training Program
DX: J96.01 Acute respiratory failure with hypoxia (principal); J18.9 Pneumonia, unspecified organism; J44.1 Chronic obstructive pulmonary disease with (acute) exacerbation; E87.20 Acidosis, unspecified; J44.0 Chronic obstructive pulmonary disease with (acute) lower respiratory infection; R91.8 Other nonspecific abnormal finding of lung field; Z99.81 Dependence on supplemental oxygen
CPT/HCPCS: 36415; 36600; 71045; 71275; 80048; 80053; 80061; 82607; 82746; 82803; 83036; 83540; 83550; 83605; 83735; 83880; 84100; 84145; 84443; 84484; 85025; 85610; 85730; 87040; 87150; 87205; 87486; 87581; 87633; 87637; 93005; 93306; 94640; 94660; 94760; 96365; 96372; 96375; 99291; J0696; J1644; J1938; J2270; J2543; J2919; J3373; J3475; J7050; J7613; J7626; J9999; Q0144